=== PATIENT | male | born 1980 | race Caucasian/White ===

== ENCOUNTER 2017-01-14 03:18 | Emergency (ER) | payer MEDICAID, OTHER ==
[2017-01-14 04:04] LABS: Hematocrit 44 % (42-52); Mean Corpuscular HGB Conc 34 g/dl (31-36); Mean Corpuscular Hemoglobin 31 pg (27-31); Mean Corpuscular Volume 90 fL (80-94); Mean Platelet Volume 7 um3 (7.4-10.4); Red Blood Count 4.84 10^6/ul (4.0-5.4); Red Cell Distribution Width 14 % (10.5-15); White Blood Count 7.4 10^3/ul (3.5-10.8)
[2017-01-14 04:17] LABS: ALT 28 U/L (7-52); AST 68 U/L (13-39); Albumin 4.4 g/dL (3.2-5.2); Alkaline Phosphatase 50 U/L (34-104); Anion Gap 7 mmol/L (2-11); BUN/Creatinine Ratio 6.3 (8-20); Blood Urea Nitrogen 5 mg/dL (6-24); CO2 Carbon Dioxide 30 mmol/L (22-32); Calcium 8.7 mg/dL (8.6-10.3); Chloride 100 mmol/L (101-111); EGFR African American 141.5 (>60); Globulin 2.7 g/dL (2-4); Glucose 90 mg/dL (70-100); Potassium 3.7 mmol/L (3.5-5.0); Sodium 137 mmol/L (133-145); Total Protein 7.1 g/dL (6.4-8.9)
[2017-01-14 04:26] LABS: Urine Bacteria Absent (Absent); Urine Bilirubin Negative (Negative); Urine Glucose Negative (Negative); Urine Nitrite Negative (Negative)
[2017-01-14 04:28] LABS: Benzodiazepine Urine Screen None Detected (None Detect)
[2017-01-14] MEDS ORDERED: LORazepam INJ* 2 MG/ML 1 ML VIAL ONE (04:56)
[2017-01-14 05:00] LABS: Acetaminophen < 15 mcg/mL; Alcohol 389 mg/dL (<10); Salicylate < 2.50 mg/dL (<30)
[2017-01-14] MEDS ORDERED: LORazepam INJ* 2 MG/ML 1 ML VIAL IM ONE (05:07)
[2017-01-14 05:11] LABS: TSH (Thyroid Stimulating Horm) 0.58 mcIU/mL (0.34-5.60)
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
[2017-01-14 10:47] VITALS: BP 119/72
== END 2017-01-14 13:59 | disposition home or self-care (01) ==
LOC: ED 03:18
DX: F10.129 Alcohol abuse with intoxication, unspecified (principal); Y90.8 Blood alcohol level of 240 mg/100 ml or more; F17.210 Nicotine dependence, cigarettes, uncomplicated
CPT/HCPCS: 36415; 80053; 80307; 80320; 80329; 81003; 81015; 84443; 85025; 96372; 96374; 99284; G0480; J2060

== ENCOUNTER 2017-01-24 06:44 | Emergency (ER) | payer OTHER ==
[2017-01-24 07:55] LABS: Hematocrit 42 % (42-52); Hemoglobin 14.6 g/dl (14.0-18.0); Mean Corpuscular HGB Conc 35 g/dl (31-36); Mean Corpuscular Hemoglobin 32 pg (27-31); Mean Corpuscular Volume 91 fL (80-94); Mean Platelet Volume 7 um3 (7.4-10.4); Red Blood Count 4.63 10^6/ul (4.0-5.4); Red Cell Distribution Width 15 % (10.5-15); White Blood Count 6.1 10^3/ul (3.5-10.8)
[2017-01-24 08:09] LABS: ALT 102 U/L (7-52); AST 62 U/L (13-39); Albumin 4.6 g/dL (3.2-5.2); Alkaline Phosphatase 53 U/L (34-104); Anion Gap 10 mmol/L (2-11); Blood Urea Nitrogen 5 mg/dL (6-24); CO2 Carbon Dioxide 29 mmol/L (22-32); Calcium 9.2 mg/dL (8.6-10.3); Chloride 101 mmol/L (101-111); EGFR African American 162.4 (>60); EGFR Non-African American 126.3 (>60); Globulin 2.9 g/dL (2-4); Glucose 105 mg/dL (70-100); Potassium 3.9 mmol/L (3.5-5.0); Sodium 140 mmol/L (133-145); Total Protein 7.5 g/dL (6.4-8.9)
[2017-01-24 08:41] LABS: Acetaminophen < 15 mcg/mL; Alcohol 340 mg/dL (<10); Salicylate < 2.50 mg/dL (<30)
[2017-01-24 09:04] VITALS: BP 137/81
--- NOTE | 2017-01-24 10:59 | ED ---
Elan Aparicio Alok, scribed for Omi Garibay MD on 01/24/17 at 0827 . Substance Abuse/Use - HPI Summary HPI Summary: 36 y/o male presents to the ED for EtOH use and nausea. Pt denies any injury or trauma and has a history of EtOH related seizures. Pt is currently seeking detoxification for EtOH abuse and last checked out of [facility] for EtOH abuse 10 days ago, after which his EtOH use has increased. - History Of Current Complaint Chief Complaint: EDDetoxRequest Stated Complaint: ALCOHOL CONSUMPTION Time Seen by Provider: 01/24/17 07:33 Hx Obtained From: Patient, Family/Mincing Machine Operator Onset/Duration of Drug/ETOH Abuse: Increased Since: - 10 days ago Severity Initially: Moderate Severity Currently: Moderate Aggravating Factor(s): Nothing Alleviating Factor(s): Nothing Associated Signs And Symptoms: Nausea - Allergies/Home Medications Allergies/Adverse Reactions: Allergies Allergy/AdvReac Type Severity Reaction Status Date / Time No Known Allergies Allergy Verified 01/14/17 03:26 PMH/Surg Hx/FS Hx/Imm Hx Endocrine/Hematology History: Denies: Hx Anticoagulant Therapy, Hx Diabetes - general medical health ok. hx addiction. recently d/c'd from [facility], Hx Thyroid Disease, Other Endocrine/Hematological Disorders Cardiovascular History: Denies: Hx Hypertension, Hx Pacemaker/ICD, Other Cardiovascular Problems/ Disorders Respiratory History: Denies: Hx Asthma, Hx Chronic Obstructive Pulmonary Disease (COPD), Other Respiratory Problems/Disorders GI History: Denies: Hx Ulcer, Other GI Disorders History: Denies: Hx Renal Disease, Other Problems/Disorders Musculoskeletal History: Denies: Other Musculoskeletal History Sensory History: Denies: Other Sensory Impairments Opthamlomology History: Denies: Other Sensory Impairments Neurological History: Reports: Hx Seizures - r/t alcohol withdrawl Denies: Hx Dementia, Other Neuro Impairments/Disorders Psychiatric History: Reports: Hx Anxiety, Hx Depression, Hx Community Mental Health Tx, Hx Substance Abuse, Other Psychiatric Issues/Disorders - substance abuse Denies: Hx Eating Disorder, Hx of Violent Episodes Against Others - Surgical History Surgery Procedure, Year, and Place: [place] Teeth Extraction. Moles Removed - Immunization History Date of Tetanus Vaccine: UNK Date of Influenza Vaccine: NONE Infectious Disease History: No Infectious Disease History: Denies: Hx Clostridium Difficile, Hx Hepatitis, Hx Human Immunodeficiency Virus (HIV), Hx of Known/Suspected MRSA, Hx Shingles, Hx Tuberculosis, Hx Known/ Suspected VRE, Hx Known/Suspected VRSA, History Other Infectious Disease, Traveled Outside the [place] in Last 30 Days - Family History Known Family History: Positive: Other - EtOH abuse and depression per EMR. - Social History Occupation: Unemployed Alcohol Use: None Alcohol Amount: 10 day binge Hx Substance Use: No Substance Use Type: Reports: Other Hx Tobacco Use: Yes Smoking Status (MU): Current Every Day Smoker Type: Cigarettes Amount Used/How Often: 1/2 PPD Have You Smoked in the Last Year: Yes Review of Systems Negative: Fever Positive: Nausea All Other Systems Reviewed And Are Negative: Yes Physical Exam Triage Information Reviewed: Yes Vital Signs On Initial Exam: Initial Vitals Temp Pulse Resp BP Pulse Ox 98.7 F 128 18 152/97 100 01/24/17 06:52 01/24/17 06:52 01/24/17 06:52 01/24/17 06:52 01/24/17 06:52 Vital Signs Reviewed: Yes Appearance: Positive: Well-Appearing - EtOH smell, inebriated, No Pain Distress Skin: Positive: Warm, Skin Color Reflects Adequate Perfusion, Dry Head/Face: Positive: Normal Head/Face Inspection Eyes: Positive: Normal ENT: Positive: Normal ENT inspection Neck: Positive: Supple, Nontender Respiratory/Lung Sounds: Positive: Clear to Auscultation, Breath Sounds Present Abdomen Description: Positive: Nontender, Soft Bowel Sounds: Positive: Present Musculoskeletal: Positive: Normal, Strength/ROM Intact Neurological: Positive: Normal, Sensory/Motor Intact, Alert, Oriented to Person Place, Time Psychiatric: Positive: Normal, Affect/Mood Appropriate Diagnostics - Vital Signs Vital Signs Temp Pulse Resp BP Pulse Ox 01/24/17 06:52 98.7 F 128 18 152/97 100 - Laboratory Lab Results: Lab Results 01/24/17 01/24/17 Range/Units 07:41 07:41 WBC 6.1 (3.5-10.8) 10^3/ul RBC 4.63 (4.0-5.4) 10^6/ul Hgb 14.6 (14.0-18.0) g/dl Hct 42 (42-52) % MCV 91 (80-94) fL MCH 32 H (27-31) pg MCHC 35 (31-36) g/dl RDW 15 (10.5-15) % Plt Count 276 (150-450) 10^3/ul MPV 7 L (7.4-10.4) um3 Neut % (Auto) 44.8 (38-83) % Lymph % (Auto) 38.2 (25-47) % [place] % (Auto) 14.7 H (1-9) % Eos % (Auto) 1.2 (0-6) % Baso % (Auto) 1.1 (0-2) % Absolute Neuts (auto) 2.7 (1.5-7.7) 10^3/ul Absolute Lymphs (auto) 2.3 (1.0-4.8) 10^3/ul Absolute Monos (auto) 0.9 H (0-0.8) 10^3/ul Absolute Eos (auto) 0.1 (0-0.6) 10^3/ul Absolute Basos (auto) 0.1 (0-0.2) 10^3/ul Absolute Nucleated RBC 0 10^3/ul Nucleated RBC % 0 Sodium 140 (133-145) mmol/L Potassium 3.9 (3.5-5.0) mmol/L Chloride 101 (101-111) mmol/L Carbon Dioxide 29 (22-32) mmol/L Anion Gap 10 (2-11) mmol/L BUN 5 L (6-24) mg/dL Creatinine 0.71 (0.67-1.17) mg/dL Est GFR ( Amer) 162.4 (>60) Est GFR (Non-Af Amer) 126.3 (>60) BUN/Creatinine Ratio 7.0 L (8-20) Glucose 105 H (70-100) mg/dL Calcium 9.2 (8.6-10.3) mg/dL Total Bilirubin 0.30 (0.2-1.0) mg/dL AST 62 H (13-39) U/L ALT 102 H (7-52) U/L Alkaline Phosphatase 53 (34-104) U/L Total Protein 7.5 (6.4-8.9) g/dL Albumin 4.6 (3.2-5.2) g/dL Globulin 2.9 (2-4) g/dL Albumin/Globulin Ratio 1.6 (1-3) TSH Pending Salicylates Pending Acetaminophen Pending Serum Alcohol Pending Result Diagrams: 01/24/17 07:41 01/24/17 07:41 Lab Statement: Any lab studies that have been ordered have been reviewed, and results considered in the medical decision making process. Course/Dx - Course Assessment/Plan: DISCUSSED RESULTS WITH PATIENT. PATIENT DENIES SI/HI, DOES NOT WANT A MHE. DOES NOT WANT ALCOHOL DETOX. DISCHARGE HOME STABLE WITH FATHER. - Diagnoses Provider Diagnoses: Alcohol intoxication, Alcoholism Discharge - Discharge Plan Condition: Stable Disposition: HOME Patient Education Materials: Alcohol Intoxication (ED), Alcohol Dependence (ED) Referrals: [facility] [Outside] [facility] [Outside] [facility] [Outside] Bala Grady III DERRICK BOAT LEVERMAN [Primary Care Provider] - Additional Instructions: FOLLOW UP WITH YOUR DOCTOR. RETURN TO THE EMERGENCY DEPARTMENT FOR ANY WORSENING OF YOUR CONDITION OR QUESTIONS OR CONCERNS. The documentation as recorded by the Elan covington Alok accurately reflects the service I personally performed and the decisions made by me, Omi Garibay MD.
== END 2017-01-24 10:50 | disposition home or self-care (01) ==
LOC: ED 06:44
DX: F10.129 Alcohol abuse with intoxication, unspecified (principal); F10.20 Alcohol dependence, uncomplicated; F17.210 Nicotine dependence, cigarettes, uncomplicated; R11.0 Nausea
CPT/HCPCS: 36415; 80053; 80320; 80329; 84443; 85025; 99282; G0480

== ENCOUNTER 2017-01-24 22:00 | Emergency (ER) | payer OTHER ==
[2017-01-25 01:00] LABS: Hematocrit 41 % (42-52); Hemoglobin 14.1 g/dl (14.0-18.0); Mean Corpuscular HGB Conc 35 g/dl (31-36); Mean Corpuscular Hemoglobin 31 pg (27-31); Mean Corpuscular Volume 91 fL (80-94); Mean Platelet Volume 7 um3 (7.4-10.4); Red Blood Count 4.49 10^6/ul (4.0-5.4); Red Cell Distribution Width 14 % (10.5-15); White Blood Count 10.9 10^3/ul (3.5-10.8)
[2017-01-25 01:16] LABS: ALT 89 U/L (7-52); AST 54 U/L (13-39); Albumin 4.4 g/dL (3.2-5.2); Alkaline Phosphatase 50 U/L (34-104); Anion Gap 8 mmol/L (2-11); BUN/Creatinine Ratio 11.1 (8-20); Blood Urea Nitrogen 8 mg/dL (6-24); CO2 Carbon Dioxide 31 mmol/L (22-32); Calcium 9.4 mg/dL (8.6-10.3); Chloride 99 mmol/L (101-111); Creatine Kinase 339 U/L (10-223); EGFR African American 159.8 (>60); EGFR Non-African American 124.2 (>60); Globulin 2.8 g/dL (2-4); Glucose 101 mg/dL (70-100); Potassium 3.9 mmol/L (3.5-5.0); Sodium 138 mmol/L (133-145); Total Protein 7.2 g/dL (6.4-8.9)
[2017-01-25 01:19] LABS: Acetaminophen < 15 mcg/mL; Alcohol 266 mg/dL (<10); Salicylate < 2.50 mg/dL (<30)
[2017-01-25 04:12] LABS: Urine Bacteria Absent (Absent); Urine Bilirubin Negative (Negative); Urine Glucose Negative (Negative); Urine Nitrite Negative (Negative)
[2017-01-25 04:21] LABS: Benzodiazepine Urine Screen Presumptive Positive (None Detect)
--- NOTE | 2017-01-25 06:28 | ED ---
miller Aparicio Timothy, scribed for Brendan Tsai MD on 01/24/17 at 2233 . Substance Abuse/Use - HPI Summary HPI Summary: Mark Butcher is a 36 yo male presenting [place] [facility] after ingesting cologne. Pt states he drank a 12 pack of beer beginning at 1100 this morning, then didn't feel good and so drank 10 oz of cologne. He states he drinks everyday, and has been drinking for the past 5 days. He has experienced alcohol withdrawal. Pt states that he does not smoke tobacco, although his chart indicates he does. He is not in any current pain. He denies SI. His MHx includes seizure secondary to EtOH withdrawal, depression, anxiety, substance abuse, and tobacco use. - History Of Current Complaint Chief Complaint: EDGeneral Stated Complaint: INGESTED COLOGNE Time Seen by Provider: 01/24/17 22:30 Hx Obtained From: Patient Onset/Duration of Drug/ETOH Abuse: Hours Ingestion History: Type/Name Of Drug - EtOH, cologne, Amount Ingested - 12 pack/ 10 oz Overdose Characteristics: Oral Severity Initially: Moderate Severity Currently: Moderate - Allergies/Home Medications Allergies/Adverse Reactions: Allergies Allergy/AdvReac Type Severity Reaction Status Date / Time No Known Allergies Allergy Verified 01/14/17 03:26 PMH/Surg Hx/FS Hx/Imm Hx Endocrine/Hematology History: Denies: Hx Anticoagulant Therapy, Hx Diabetes - general medical health ok. hx addiction. [place] [facility], Hx Thyroid Disease, Other Endocrine/Hematological Disorders Cardiovascular History: Denies: Hx Hypertension, Hx Pacemaker/ICD, Other Cardiovascular Problems/ Disorders Respiratory History: Denies: Hx Asthma, Hx Chronic Obstructive Pulmonary Disease (COPD), Other Respiratory Problems/Disorders GI History: Denies: Hx Ulcer, Other GI Disorders History: Denies: Hx Renal Disease, Other Problems/Disorders Musculoskeletal History: Denies: Other Musculoskeletal History Sensory History: Denies: Other Sensory Impairments Opthamlomology History: Denies: Other Sensory Impairments Neurological History: Reports: Hx Seizures - r/t alcohol withdrawl Denies: Hx Dementia, Other Neuro Impairments/Disorders Psychiatric History: Reports: Hx Anxiety, Hx Depression, Hx Community Mental Health Tx, Hx Substance Abuse, Other Psychiatric Issues/Disorders - substance abuse Denies: Hx Eating Disorder, Hx of Violent Episodes Against Others - Surgical History Surgery Procedure, Year, and Place: [place] Teeth Extraction. Moles Removed - Immunization History Date of Tetanus Vaccine: UNK Date of Influenza Vaccine: NONE Infectious Disease History: No Infectious Disease History: Denies: Hx Clostridium Difficile, Hx Hepatitis, Hx Human Immunodeficiency Virus (HIV), Hx of Known/Suspected MRSA, Hx Shingles, Hx Tuberculosis, Hx Known/ Suspected VRE, Hx Known/Suspected VRSA, History Other Infectious Disease, Traveled Outside the [place] in Last 30 Days - Family History Known Family History: Positive: None, Other - EtOH abuse and depression per EMR. - Social History Alcohol Use: None Alcohol Amount: 10 day binge Hx Substance Use: No Substance Use Type: Reports: Other Hx Tobacco Use: Yes Smoking Status (MU): Current Every Day Smoker Type: Cigarettes Amount Used/How Often: 1/2 PPD Have You Smoked in the Last Year: Yes Review of Systems Constitutional: Negative Eyes: Negative ENT: Negative Cardiovascular: Negative Respiratory: Negative Gastrointestinal: Negative Genitourinary: Negative Musculoskeletal: Negative Skin: Negative Neurological: Negative Psychological: Other - "not feeling good" All Other Systems Reviewed And Are Negative: Yes Physical Exam - Summary Physical Exam Summary: The patient is well-nourished in no acute distress and in no acute pain. The skin is warm and dry and skin color reflects adequate perfusion. His skin has good turgor. Pt appears intoxicated. Pt does not exhibit cuts on his arms bilaterally. HEENT: The head is normocephalic and atraumatic. The pupils are equal and reactive. The conjunctivae are clear and without drainage. Nares are patent and without drainage. Mouth reveals moist mucous membranes and the throat is without erythema and exudate. The external ears are intact. Neck is supple with full range of motion and non-tender. There are no carotid bruits. There is no neck vein distension. Respiratory: Chest is non-tender. Lungs are clear to auscultation and breath sounds are symmetrical and equal. Cardiovascular: Hear is regular rate and rhythm. There is no murmur or rub auscultated. There is no peripheral edema and pulses are symmetrical and equal. Abdomen: The abdomen is soft and non-tender. There are normal bowel sounds heard in all four quadrants and there is no organomegaly palpated. Musculoskeletal: There is no back pain noted. Extremities are non-tender with full range of motion. There is good capillary refill. There is no peripheral edema or calf tenderness elicited. Neurological: Patient is alert and oriented to person, place and time. The patient has symmetrical motor strength in all four extremities. Cranial nerves are grossly intact. Deep tendon reflexes are symmetrical and equal in all four extremities. Psychiatric: The patient has an appropriate affect and does not exhibit any anxiety or depression. Triage Information Reviewed: Yes Vital Signs On Initial Exam: Initial Vitals Temp Pulse Resp BP Pulse Ox 98.7 F 118 18 128/78 98 01/24/17 22:09 01/24/17 22:09 01/24/17 22:09 01/24/17 22:09 01/24/17 22:09 Vital Signs Reviewed: Yes - [place] Coma Scale Coma Scale Total: 15 Diagnostics - Vital Signs Vital Signs Temp Pulse Resp BP Pulse Ox 01/24/17 22:09 98.7 F 118 18 128/78 98 - Laboratory Lab Results: Lab Results 01/25/17 01/25/17 01/25/17 Range/Units 00:30 00:30 00:30 WBC 10.9 H (3.5-10.8) 10^3/ul RBC 4.49 (4.0-5.4) 10^6/ul Hgb 14.1 (14.0-18.0) g/dl Hct 41 L (42-52) % MCV 91 (80-94) fL MCH 31 (27-31) pg MCHC 35 (31-36) g/dl RDW 14 (10.5-15) % Plt Count 269 (150-450) 10^3/ul MPV 7 L (7.4-10.4) um3 Neut % (Auto) 54.4 (38-83) % Lymph % (Auto) 31.2 (25-47) % [place] % (Auto) 12.8 H (1-9) % Eos % (Auto) 0.8 (0-6) % Baso % (Auto) 0.8 (0-2) % Absolute Neuts (auto) 5.9 (1.5-7.7) 10^3/ul Absolute Lymphs (auto) 3.4 (1.0-4.8) 10^3/ul Absolute Monos (auto) 1.4 H (0-0.8) 10^3/ul Absolute Eos (auto) 0.1 (0-0.6) 10^3/ul Absolute Basos (auto) 0.1 (0-0.2) 10^3/ul Absolute Nucleated RBC 0.01 10^3/ul Nucleated RBC % 0.1 Sodium 138 (133-145) mmol/L Potassium 3.9 (3.5-5.0) mmol/L Chloride 99 L (101-111) mmol/L Carbon Dioxide 31 (22-32) mmol/L Anion Gap 8 (2-11) mmol/L BUN 8 (6-24) mg/dL Creatinine 0.72 (0.67-1.17) mg/dL Est GFR ( Amer) 159.8 (>60) Est GFR (Non-Af Amer) 124.2 (>60) BUN/Creatinine Ratio 11.1 (8-20) Glucose 101 H (70-100) mg/dL Lactic Acid 1.9 (0.5-2.0) mmol/L Calcium 9.4 (8.6-10.3) mg/dL Total Bilirubin 0.30 (0.2-1.0) mg/dL AST 54 H (13-39) U/L ALT 89 H (7-52) U/L Alkaline Phosphatase 50 (34-104) U/L Total Creatine Kinase 339 H (10-223) U/L Total Protein 7.2 (6.4-8.9) g/dL Albumin 4.4 (3.2-5.2) g/dL Globulin 2.8 (2-4) g/dL Albumin/Globulin Ratio 1.6 (1-3) Urine Color Urine Appearance Urine pH (5-9) Ur Specific [place] (1.010-1.030) Urine Protein (Negative) Urine Ketones (Negative) Urine Blood (Negative) Urine Nitrate (Negative) Urine Bilirubin (Negative) Urine Urobilinogen (Negative) Ur Leukocyte Esterase (Negative) Urine WBC (Auto) (Absent) Urine RBC (Auto) (Absent) Urine Bacteria (Absent) Urine Glucose (Negative) Salicylates < 2.50 (<30) mg/dL Urine Opiates Screen (None Detect) Acetaminophen < 15 mcg/mL Ur Barbiturates Screen (None Detect) Ur Phencyclidine Scrn (None Detect) Ur Amphetamines Screen (None Detect) U Benzodiazepines Scrn (None Detect) Urine Cocaine Screen (None Detect) U Cannabinoids Screen (None Detect) Serum Alcohol 266 H (<10) mg/dL 01/25/17 01/25/17 Range/Units 03:54 03:54 WBC (3.5-10.8) 10^3/ul RBC (4.0-5.4) 10^6/ul Hgb (14.0-18.0) g/dl Hct (42-52) % MCV (80-94) fL MCH (27-31) pg MCHC (31-36) g/dl RDW (10.5-15) % Plt Count (150-450) 10^3/ul MPV (7.4-10.4) um3 Neut % (Auto) (38-83) % Lymph % (Auto) (25-47) % [place] % (Auto) (1-9) % Eos % (Auto) (0-6) % Baso % (Auto) (0-2) % Absolute Neuts (auto) (1.5-7.7) 10^3/ul Absolute Lymphs (auto) (1.0-4.8) 10^3/ul Absolute Monos (auto) (0-0.8) 10^3/ul Absolute Eos (auto) (0-0.6) 10^3/ul Absolute Basos (auto) (0-0.2) 10^3/ul Absolute Nucleated RBC 10^3/ul Nucleated RBC % Sodium (133-145) mmol/L Potassium (3.5-5.0) mmol/L Chloride (101-111) mmol/L Carbon Dioxide (22-32) mmol/L Anion Gap (2-11) mmol/L BUN (6-24) mg/dL Creatinine (0.67-1.17) mg/dL Est GFR ( Amer) (>60) Est GFR (Non-Af Amer) (>60) BUN/Creatinine Ratio (8-20) Glucose (70-100) mg/dL Lactic Acid (0.5-2.0) mmol/L Calcium (8.6-10.3) mg/dL Total Bilirubin (0.2-1.0) mg/dL AST (13-39) U/L ALT (7-52) U/L Alkaline Phosphatase (34-104) U/L Total Creatine Kinase (10-223) U/L Total Protein (6.4-8.9) g/dL Albumin (3.2-5.2) g/dL Globulin (2-4) g/dL Albumin/Globulin Ratio (1-3) Urine Color Yellow Urine Appearance Clear Urine pH 6.0 (5-9) Ur Specific [place] 1.006 L (1.010-1.030) Urine Protein Negative (Negative) Urine Ketones Negative (Negative) Urine Blood 2+ H (Negative) Urine Nitrate Negative (Negative) Urine Bilirubin Negative (Negative) Urine Urobilinogen Negative (Negative) Ur Leukocyte Esterase Negative (Negative) Urine WBC (Auto) Trace(0-5/hpf) (Absent) Urine RBC (Auto) 2+(6-10/hpf) H (Absent) Urine Bacteria Absent (Absent) Urine Glucose Negative (Negative) Salicylates (<30) mg/dL Urine Opiates Screen None detected (None Detect) Acetaminophen mcg/mL Ur Barbiturates Screen None detected (None Detect) Ur Phencyclidine Scrn None detected (None Detect) Ur Amphetamines Screen None detected (None Detect) U Benzodiazepines Scrn Presumptive positive H (None Detect) Urine Cocaine Screen None detected (None Detect) U Cannabinoids Screen None detected (None Detect) Serum Alcohol (<10) mg/dL Result Diagrams: 01/25/17 00:30 01/25/17 00:30 Lab Statement: Any lab studies that have been ordered have been reviewed, and results considered in the medical decision making process. Course/Dx - Course Assessment/Plan: Mark Butcher is a 36 [address] to [facility] with EtOH intoxication and consumption of 10 oz of cologne. He is medically clear for a mental health unit evaluation at 0511. He is signed out to Dr. Sanchez at 0700. - Diagnoses Differential Diagnosis/HQI/PQRI: Positive: Alcohol Abuse, Metabolic Disorder Provider Diagnoses: Alcohol abuse, Depression Discharge - Discharge Plan Condition: Stable Disposition: OTHER Discharge Disposition Comment: Sign out to Dr. Sanchez [place] [facility]errals: Bala Grady III, RESPIRATORY CARE INSTRUCTOR [Primary Care Provider] - The documentation as recorded by the miller ocvington Timothy accurately reflects the service I personally performed and the decisions made by , Brendan Tsai MD.
--- NOTE | 2017-01-25 07:59 | ED ---
Progress - Progress Note Progress Note: 0715 Pt received in sign out - awaiting completion of mental health exam. No current needs - Consult/PCP Time Called: 05:20 Course/Dx - Diagnoses Provider Diagnoses: Alcohol abuse, Depression
[2017-01-25] MEDS ORDERED: Ondansetron ODT TAB* 4 MG PO ONE (08:41)
[2017-01-25] MEDS ORDERED: Acetaminophen TAB* 325 MG PO ONE (08:41)
[2017-01-25] MEDS ORDERED: LORazepam TAB(*) 1 MG PO ONE (09:02)
[2017-01-25 10:45] VITALS: BP 150/87
== END 2017-01-25 10:43 | disposition home or self-care (01) ==
LOC: ED 22:00
DX: F10.129 Alcohol abuse with intoxication, unspecified (principal); Y90.8 Blood alcohol level of 240 mg/100 ml or more; F10.10 Alcohol abuse, uncomplicated; F32.9 Major depressive disorder, single episode, unspecified; F17.210 Nicotine dependence, cigarettes, uncomplicated
CPT/HCPCS: 36415; 80053; 80307; 80320; 80329; 81003; 81015; 82550; 83605; 85025; 99282; A9270-GY; G0480

== ENCOUNTER 2017-01-29 01:41 | Emergency (ER) | payer OTHER ==
[2017-01-29 01:49] VITALS: BP 164/90
--- NOTE | 2017-01-29 05:32 | ED ---
Alcon Aparicio Janilya, scribed for Omi Garibay MD on 01/29/17 at 0211 . Substance Abuse/Use - HPI Summary HPI Summary: A 36 y/o male came in [place] [facility] [place] w/ a gradual onset of EtOH intoxication today. In addition, pt thinks he has broken his nose. He reports falling earlier today. - History Of Current Complaint Chief Complaint: EDSubstanceAbuse Stated Complaint: ALCOHOL Time Seen by Provider: 01/29/17 02:03 Hx Obtained From: Patient Ingestion History: Type/Name Of Drug - EtOH, Amount Ingested - unknown Overdose Characteristics: Oral Severity Initially: Moderate Severity Currently: Moderate Aggravating Factor(s): Nothing Alleviating Factor(s): Nothing - Allergies/Home Medications Allergies/Adverse Reactions: Allergies Allergy/AdvReac Type Severity Reaction Status Date / Time Peanut-containing Drug Allergy Severe Anaphylatic Verified 01/29/17 01:49 Products Shock PMH/Surg Hx/FS Hx/Imm Hx Previously Healthy: Yes Endocrine/Hematology History: Denies: Hx Anticoagulant Therapy, Hx Diabetes - general medical health ok. hx addiction. recently d/c'd from [facility] [place] [facility], Hx Thyroid Disease, Other Endocrine/Hematological Disorders Cardiovascular History: Denies: Hx Hypertension, Hx Pacemaker/ICD, Other Cardiovascular Problems/ Disorders Respiratory History: Denies: Hx Asthma, Hx Chronic Obstructive Pulmonary Disease (COPD), Other Respiratory Problems/Disorders GI History: Denies: Hx Ulcer, Other GI Disorders History: Denies: Hx Renal Disease, Other Problems/Disorders Musculoskeletal History: Denies: Other Musculoskeletal History Sensory History: Denies: Other Sensory Impairments Opthamlomology History: Denies: Other Sensory Impairments Neurological History: Reports: Hx Seizures - r/t alcohol withdrawl Denies: Hx Dementia, Other Neuro Impairments/Disorders Psychiatric History: Reports: Hx Anxiety, Hx Depression, Hx Community Mental Health Tx, Hx Substance Abuse, Other Psychiatric Issues/Disorders - substance abuse Denies: Hx Eating Disorder, Hx of Violent Episodes Against Others - Surgical History Surgery Procedure, Year, and Place: [place] Teeth Extraction. Moles Removed - Immunization History Date of Tetanus Vaccine: UNK Date of Influenza Vaccine: NONE Infectious Disease History: No Infectious Disease History: Denies: Hx Clostridium Difficile, Hx Hepatitis, Hx Human Immunodeficiency Virus (HIV), Hx of Known/Suspected MRSA, Hx Shingles, Hx Tuberculosis, Hx Known/ Suspected VRE, Hx Known/Suspected VRSA, History Other Infectious Disease, Traveled Outside the [place] in Last 30 Days - Family History Known Family History: Positive: None, Other - EtOH abuse and depression per EMR. - Social History Alcohol Use: None Alcohol Amount: 10 day binge Hx Substance Use: No Substance Use Type: Reports: Other Hx Tobacco Use: Yes Smoking Status (MU): Current Every Day Smoker Type: Cigarettes Amount Used/How Often: 1/2 PPD Have You Smoked in the Last Year: Yes Review of Systems Positive: Other - EtOH intoxication. Negative: Fever Positive: Other - nose tenderness All Other Systems Reviewed And Are Negative: Yes Physical Exam Triage Information Reviewed: Yes Vital Signs On Initial Exam: Initial Vitals Temp Pulse Resp BP Pulse Ox 98.2 F 124 16 164/90 100 01/29/17 01:45 01/29/17 01:45 01/29/17 01:45 01/29/17 01:45 01/29/17 01:45 Vital Signs Reviewed: Yes Appearance: Positive: Well-Appearing, No Pain Distress Skin: Positive: Warm, Skin Color Reflects Adequate Perfusion, Dry Head/Face: Positive: Normal Head/Face Inspection Eyes: Positive: EOMI, LISSETTE ENT: Positive: Normal ENT inspection Neck: Positive: Supple, Nontender Respiratory/Lung Sounds: Positive: Clear to Auscultation, Breath Sounds Present Cardiovascular: Positive: RRR Abdomen Description: Positive: Nontender, Soft Bowel Sounds: Positive: Present Musculoskeletal: Positive: Strength/ROM Intact, Other - Tenderness of nose. No active bleeding. Neurological: Positive: Normal, Sensory/Motor Intact, Alert, Oriented to Person Place, Time Psychiatric: Positive: Other - Stuporous Diagnostics - Vital Signs Vital Signs Temp Pulse Resp BP Pulse Ox 01/29/17 01:45 98.2 F 124 16 164/90 100 - Laboratory Lab Statement: Any lab studies that have been ordered have been reviewed, and results considered in the medical decision making process. - CT brain CT Interpretation: No Acute Changes - No acute intracranial injury seen. Trace old left frontal subdural hygroma suggesting old injury. cervical spine CT Interpretation: No Acute Changes - No acute fracture seen. If there are focal radicular findings, MRI would be recommended. CT Interpretation Completed By: Radiologist Course/Dx - Course Assessment/Plan: Pt is a 36 y/o male who is here for EtOH intoxication. In addition, pt states that he thinks he has broken his nose due to a fall earlier today. CT of brain, cervical spine, maxillofacial are in orders. Pt agrees with this plan. Pt left AMA at 0330. - Diagnoses Provider Diagnoses: Facial injury, Alcohol intoxication, Left against medical advice Discharge - Discharge Plan Condition: Stable Disposition: AGAINST MEDICAL ADVICE Referrals: Bala Grady III, QUALITY CONTROL ASSOCIATE [Primary Care Provider] - The documentation as recorded by the Alcon covington Janilya accurately reflects the service I personally performed and the decisions made by me, Omi Garibay MD.
--- NOTE | 2017-01-29 10:50 | RAD ---
INDICATION: Alcohol intoxication. Fall. COMPARISON: None. TECHNIQUE: Multidetector CT images foramen magnum to lung apices without contrast. Multiplanar reformation. REPORT: Negative for vertebral body or posterior element fracture at any level. Negative for facet subluxation. Negative for paravertebral hematoma. Degenerative spondylosis and facet joint osteoarthritis mild in severity. Disc space narrowing is most prominent at C5-C6 and C6-C7 where it is moderate in severity. No suggestion of significant acquired central canal or foraminal stenosis at any level. Congenitally generous pedicles mitigate against acquired central canal stenosis. Incidental 0.9 cm well-circumscribed water density nodule at the RIGHT thyroid lobe. IMPRESSION: 1. Negative for traumatic cervical spine injury. 2. Nonemergent thyroid ultrasound suggested for most accurate characterization of the noted incidental RIGHT thyroid lobe nodule.
--- NOTE | 2017-01-29 10:58 | RAD ---
INDICATION: Intoxicated. Fell and hurt nose. COMPARISON: None. TECHNIQUE: Multidetector CT base of the skull through mandible without contrast. Multiplanar reformation. REPORT: Artifact from dental amalgam. Minimally depressed bilateral nasal bone fractures and fracture of the LEFT nasal process of the maxilla. Overlying soft tissue swelling without loculated soft tissue hematoma. The orbital and maxillary sinus margins, zygomatic arches, lamina papyracea, base of the maxilla, and pterygoid plates are intact. The mandible is intact. There is partial flattening of the bilateral mandibular condyles reflecting presence of arthropathy. The LEFT mandibular condyle is translated anteriorly extending further anterior than the articular eminence. Less prominent anterior translation of the RIGHT mandibular condyle relative to the mandibular fossa. Clear paranasal sinuses and visualized mastoid air spaces. IMPRESSION: 1. Minimally depressed bilateral nasal bone fractures and fracture of the LEFT nasal process of the maxilla. Overlying soft tissue swelling without loculated soft tissue hematoma. 2. Bilateral temporomandibular joint arthropathy.
--- NOTE | 2017-01-29 11:01 | RAD ---
Indication: Alcohol intoxication. Nasal fractures. Comparison: Maxillofacial CT exam of the same date. Technique: Noncontrast CT vertex of skull through foramen magnum. Report: The sulci, ventricles, and basal cisterns are normal for age. Weber matter white matter differentiation is preserved without evidence for edema. No intra or extra axial hemorrhage is detected. Unremarkable orbital contents. Negative for calvarial or skull base fracture. Negative for scalp hematoma. The visualized paranasal sinuses and mastoid air spaces are clear. IMPRESSION: No evidence for traumatic brain injury or acute intracranial process.
== END 2017-01-29 03:21 | disposition left against medical advice (07) ==
LOC: ED 01:41
DX: S09.93XA Unspecified injury of face, initial encounter (principal); W18.30XA Fall on same level, unspecified, initial encounter; F10.129 Alcohol abuse with intoxication, unspecified
CPT/HCPCS: 70450; 70486; 72125; 99282

== ENCOUNTER 2017-01-29 03:37 | Emergency (ER) | payer OTHER ==
[2017-01-29] MEDS ORDERED: Mouth Piece, Nicotine* 1 EACH CARTRIDGE ONE (03:48)
[2017-01-29] MEDS ORDERED: Nicotine Inhaler* 10 MG AMP ONE (03:48)
[2017-01-29 03:50] VITALS: BP 158/96
[2017-01-29] MEDS ORDERED: Amoxicillin/Clavulanate TAB* 875 MG PO ONE (05:25)
--- NOTE | 2017-01-29 05:25 | ED ---
Alcon Aparicio Janilya, scribed for Omi Garibay MD on 01/29/17 at 0357 . Adult Trauma - HPI Summary HPI Summary: A 36 y/o male came in [place] [facility] [place] w/ a gradual onset of constant nose tenderness starting today. Pt states he fell earlier today. Pt is EtOH intoxicated. Note: Pt was seen by Dr. Garibay for this reason a few hours ago. CT orders were placed and taken. While waiting for the CT results, pt left AMA. After 10- 15 mins, pt has returned. - History of Current Complaint Chief Complaint: EDFacialInjury Stated Complaint: NOSE PAIN Hx Obtained From: Patient Mechanism of Injury: Fall Loss of Consciousness: no loss of consciousness Onset/Duration: Started Hours Ago, Traumatic, Still Present Onset of Pain: Hours Onset Severity: Moderate Current Severity: Moderate Pain Intensity: 10 Pain Scale Used: 0-10 Numeric Aggravating Factor(s): Nothing Alleviating Factor(s): Nothing - Additional Pertinent History Primary Care Physician: [id number] - Allergy/Home Medications Allergies/Adverse Reactions: Allergies Allergy/AdvReac Type Severity Reaction Status Date / Time Peanut-containing Drug Allergy Severe Anaphylatic Verified 01/29/17 01:49 Products Shock PMH/Surg Hx/FS Hx/Imm Hx Previously Healthy: Yes Endocrine/Hematology History: Denies: Hx Anticoagulant Therapy, Hx Diabetes - general medical health ok. hx addiction. recently d[place]c'd [facility], Hx Thyroid Disease, Other Endocrine/Hematological Disorders Cardiovascular History: Denies: Hx Hypertension, Hx Pacemaker/ICD, Other Cardiovascular Problems/ Disorders Respiratory History: Denies: Hx Asthma, Hx Chronic Obstructive Pulmonary Disease (COPD), Other Respiratory Problems/Disorders GI History: Denies: Hx Ulcer, Other GI Disorders History: Denies: Hx Renal Disease, Other Problems/Disorders Musculoskeletal History: Denies: Other Musculoskeletal History Sensory History: Denies: Other Sensory Impairments Opthamlomology History: Denies: Other Sensory Impairments Neurological History: Reports: Hx Seizures - r/t alcohol withdrawl Denies: Hx Dementia, Other Neuro Impairments/Disorders Psychiatric History: Reports: Hx Anxiety, Hx Depression, Hx Community Mental Health Tx, Hx Substance Abuse, Other Psychiatric Issues/Disorders - substance abuse Denies: Hx Eating Disorder, Hx of Violent Episodes Against Others - Surgical History Surgery Procedure, Year, and Place: [place] Teeth Extraction. Moles Removed - Immunization History Date of Tetanus Vaccine: UNK Date of Influenza Vaccine: NONE Infectious Disease History: No Infectious Disease History: Denies: Hx Clostridium Difficile, Hx Hepatitis, Hx Human Immunodeficiency Virus (HIV), Hx of Known/Suspected MRSA, Hx Shingles, Hx Tuberculosis, Hx Known/ Suspected VRE, Hx Known/Suspected VRSA, History Other Infectious Disease, Traveled Outside the [place] in Last 30 Days - Family History Known Family History: Positive: Other - EtOH abuse and depression per EMR. - Social History Alcohol Use: unknown frequency Alcohol Amount: 10 day binge Hx Substance Use: No Substance Use Type: Reports: Other Substance Use Comment - Amount & Last Used: unknown Hx Tobacco Use: Yes Smoking Status (MU): Current Every Day Smoker Type: Cigarettes Amount Used/How Often: 1/2 PPD Have You Smoked in the Last Year: Yes Review of Systems Positive: Other - nose pain Positive: Other - stuporous All Other Systems Reviewed And Are Negative: Yes Physical Exam Triage Information Reviewed: Yes Vital Signs On Initial Exam: Initial Vitals Temp Pulse Resp BP Pulse Ox 98.2 F 117 17 158/96 98 01/29/17 03:49 01/29/17 03:49 01/29/17 03:49 01/29/17 03:49 01/29/17 03:49 Vital Signs Reviewed: Yes Appearance: Positive: Well-Appearing, No Pain Distress Skin: Positive: Warm, Skin Color Reflects Adequate Perfusion, Dry Head/Face: Positive: Normal Head/Face Inspection Eyes: Positive: EOMI, LISSETTE ENT: Positive: Normal ENT inspection Neck: Positive: Supple, Nontender Respiratory/Lung Sounds: Positive: Clear to Auscultation, Breath Sounds Present Cardiovascular: Positive: RRR Abdomen Description: Positive: Nontender, Soft Bowel Sounds: Positive: Present Musculoskeletal: Positive: Strength/ROM Intact, Other - Nose tenderness Neurological: Positive: Normal, Sensory/Motor Intact, Alert, Oriented to Person Place, Time Psychiatric: Positive: Other - Stuporous Diagnostics - Vital Signs Vital Signs Temp Pulse Resp BP Pulse Ox 01/29/17 03:49 98.2 F 117 17 158/96 98 - Laboratory Lab Statement: Any lab studies that have been ordered have been reviewed, and results considered in the medical decision making process. - CT maxillofacial CT Interpretation: Positive (See Comments) - 1. Bilateral anterior nasal bone fracture and with some mild rightward displacement. 2. Leftward nasal septal deviation with leftward spur and bilateral derick bullosa in the middle turbinates. CT Interpretation Completed By: Radiologist Adult Trauma Course/Dx - Course Assessment/Plan: Pt is a 36 y/o male here for nose pain. Pt states he fell earlier today. Pt is also EtOH intoxicated. He was seen by me a few hours ago, but left AMA before CT results were back. However, pt returned 10-[address] RESULTS WITH PATIENT. RX AUGMENTIN. F/U ENT. DISCHARGE HOME STABLE. - Diagnoses Provider Diagnoses: Nasal fracture, Alcohol intoxication Discharge - Discharge Plan Condition: Stable Disposition: HOME Prescriptions: Amoxicillin/Clavulanate TAB* [Augmentin TAB 875*] 875 mg PO BID #20 tab Patient Education Materials: Nasal Fracture (ED) Additional Instructions: FOLLOW UP WITH ENT FOR YOUR NASAL FRACTURE. TAKE AUGMENTIN (ANTIBIOTIC) DIRECTED UNTIL YOU SEE THE ENT. RETURN TO THE EMERGENCY DEPARTMENT FOR ANY WORSENING OF YOUR CONDITION OR QUESTIONS OR CONCERNS. The documentation as recorded by the Alcon covington Janilya accurately reflects the service I personally performed and the decisions made by me, Omi Garibay MD.
== END 2017-01-29 05:37 | disposition home or self-care (01) ==
LOC: ED 03:37
DX: S02.2XXA Fracture of nasal bones, initial encounter for closed fracture (principal); F10.129 Alcohol abuse with intoxication, unspecified; F17.210 Nicotine dependence, cigarettes, uncomplicated; W19.XXXA Unspecified fall, initial encounter; Y93.9 Activity, unspecified; Y92.9 Unspecified place or not applicable
CPT/HCPCS: 99282; A9270-GY

== ENCOUNTER 2017-01-29 14:54 | Inpatient (IN) | payer OTHER ==
[2017-01-29 15:32] LABS: Hematocrit 40 % (42-52); Hemoglobin 13.4 g/dl (14.0-18.0); Mean Corpuscular HGB Conc 34 g/dl (31-36); Mean Corpuscular Hemoglobin 31 pg (27-31); Mean Corpuscular Volume 92 fL (80-94); Mean Platelet Volume 8 um3 (7.4-10.4); Red Blood Count 4.32 10^6/ul (4.0-5.4); Red Cell Distribution Width 14 % (10.5-15); White Blood Count 12.3 10^3/ul (3.5-10.8)
[2017-01-29 15:47] LABS: ALT 112 U/L (7-52); AST 121 U/L (13-39); Albumin 4.6 g/dL (3.2-5.2); Alkaline Phosphatase 59 U/L (34-104); Anion Gap 13 mmol/L (2-11); BUN/Creatinine Ratio 10.8 (8-20); Blood Urea Nitrogen 8 mg/dL (6-24); CO2 Carbon Dioxide 27 mmol/L (22-32); Calcium 9.2 mg/dL (8.6-10.3); Chloride 95 mmol/L (101-111); EGFR African American 154.8 (>60); EGFR Non-African American 120.4 (>60); Globulin 2.9 g/dL (2-4); Glucose 95 mg/dL (70-100); Potassium 3.6 mmol/L (3.5-5.0); Sodium 135 mmol/L (133-145); Total Protein 7.5 g/dL (6.4-8.9)
[2017-01-29 16:00] LABS: Acetaminophen < 15 mcg/mL; Alcohol 243 mg/dL (<10); Salicylate < 2.50 mg/dL (<30)
[2017-01-29 16:06] LABS: TSH (Thyroid Stimulating Horm) 0.31 mcIU/mL (0.34-5.60)
[2017-01-29 17:43] LABS: Urine Bacteria Absent (Absent); Urine Bilirubin Negative (Negative); Urine Glucose Negative (Negative); Urine Nitrite Negative (Negative)
[2017-01-29 18:11] LABS: Benzodiazepine Urine Screen Presumptive Positive (None Detect)
[2017-01-29] MEDS ORDERED: Diazepam SYRINGE* 5 MG/ML SYRINGE IV ONE (21:47)
[2017-01-29] MEDS: Thiamine IV* 100 MG, Folic Acid IV* 1 MG, Multiple Vitamin IV ADULT* 10 ML in NS 0.9% 1... IV ONE (23:00)
[2017-01-29] MEDS ORDERED: Acetaminophen TAB* 325 MG PO ONE (23:31)
[2017-01-29] MEDS ORDERED: Ondansetron INJ* 2 MG/ML VIAL IV ONE (23:31)
[2017-01-30] MEDS ORDERED: LORazepam INJ* 2 MG/ML 1 ML VIAL IV ONE ×2 (00:09→01:06)
[2017-01-30] MEDS ORDERED: LORazepam INJ* 2 MG/ML 1 ML VIAL ONE (00:11)
[2017-01-30] MEDS ORDERED: Thiamine IV* 100 MG, Folic Acid IV* 1 MG, Multiple Vitamin IV ADULT* 10 ML in NS 0.9% 1... IV ONE (01:06)
[2017-01-30] MEDS: Thiamine IV* 100 MG, Folic Acid IV* 1 MG, Multiple Vitamin IV ADULT* 10 ML in NS 0.9% 1... IV ONE (01:08)
[2017-01-30] MEDS ORDERED: Mouth Piece, Nicotine* 1 EACH CARTRIDGE ONE (02:35)
[2017-01-30] MEDS ORDERED: Nicotine Inhaler* 10 MG AMP ONE (02:38)
[2017-01-30] MEDS: Nicotine Inhaler* 10 MG AMP INH PRN ×2 (02:41→15:54)
[2017-01-30] MEDS ORDERED: Mouth Piece, Nicotine* 1 EACH CARTRIDGE INH ONE (04:00)
--- NOTE | 2017-01-30 06:47 | ED ---
Progress - Progress Note Progress Note: STABLE IN ED. REQUIRED ATIVAN. DISPOSITION PENDING AT SHIFT CHANGE. - Consult/PCP Time Called: 20:15 Course/Dx - Diagnoses Provider Diagnoses: substance abuse mood disorder
[2017-01-30] MEDS ORDERED: LORazepam TAB(*) 1 MG PO ONE (07:48)
[2017-01-30] MEDS ORDERED: Al Hydrox/Mg Hydrox/Simet LIQ* 30 ML UDC PO PRN (12:12)
[2017-01-30] MEDS ORDERED: LORazepam TAB(*) 1 MG PO PRN (12:20)
[2017-01-30] MEDS ORDERED: Thiamine TAB* 100 MG TAB PO SCH (13:00)
[2017-01-30] MEDS: Acetaminophen TAB* 325 MG PO PRN (14:34)
[2017-01-30] MEDS: Citalopram TAB* 40 MG PO SCH (14:34)
[2017-01-30] MEDS: Vitamin THERAPEUTIC TAB PO SCH (14:34)
[2017-01-30] MEDS ORDERED: LORazepam IM* PER WAM PARAMETERS IM SCH (16:00)
[2017-01-30] MEDS: LORazepam TAB(*) WAM SCALE 0-6 MG PO SCH (17:10)
[2017-01-31] MEDS: Thiamine TAB* 100 MG TAB DAILY (@ T+1) PO SCH (07:51)
[2017-01-31] MEDS: Vitamin THERAPEUTIC TAB PO SCH (07:51)
[2017-01-31] MEDS: Folic Acid TAB* 1 MG DAILY PO SCH (07:53)
[2017-01-31] MEDS: Citalopram TAB* 40 MG PO SCH (07:53)
[2017-01-31] MEDS: LORazepam TAB(*) WAM SCALE 0-6 MG PO SCH ×3 (07:54→19:01)
[2017-01-31] MEDS: Acetaminophen TAB* 325 MG PO PRN (07:57)
[2017-01-31] MEDS ORDERED: EPINEPHrine AMP 1 MG/ML IM PRN ×2 (10:51→12:50)
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
[2017-02-01] MEDS: Thiamine TAB* 100 MG TAB DAILY (@ T+1) PO SCH (09:09)
[2017-02-01] MEDS: Folic Acid TAB* 1 MG DAILY PO SCH (09:09)
[2017-02-01] MEDS: Citalopram TAB* 40 MG PO SCH (09:10)
[2017-02-01] MEDS: Vitamin THERAPEUTIC TAB PO SCH (09:10)
[2017-02-01] MEDS: LORazepam TAB(*) WAM SCALE 0-6 MG PO SCH ×2 (10:25→21:07)
[2017-02-01] MEDS: Nicotine Inhaler* 10 MG AMP INH PRN ×3 (11:36→20:19)
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
[2017-02-02] MEDS: Thiamine TAB* 100 MG TAB DAILY (@ T+1) PO SCH (09:36)
[2017-02-02] MEDS: Folic Acid TAB* 1 MG DAILY PO SCH (09:36)
[2017-02-02] MEDS: Vitamin THERAPEUTIC TAB PO SCH (09:36)
[2017-02-02] MEDS: Citalopram TAB* 40 MG PO SCH (09:36)
[2017-02-02] MEDS: Nicotine Inhaler* 10 MG AMP INH PRN (09:38)
--- NOTE | 2017-02-02 11:23 | ED ---
David Aparicio Matthew, scribed for Freddy Landry MD on 01/29/17 at 1514 . Altered Mental Status - HPI Summary HPI Summary: A 36 y/o male presents to the ED with ideations of self harm since a month ago. The patient states that he wants to drink himself to . He tried to hurt himself in the past a couple of years ago. Hx of anxiety. He takes celexa. PMHx essential tremors. The patient drank a 6 pack today and has binged for the past 5 days. He does not use recreational drugs. - History Of Current Complaint Chief Complaint: EDMentalHealth Stated Complaint: MHE Time Seen by Provider: 01/29/17 15:01 Hx Obtained From: Patient Onset/Duration: Still Present Timing: Constant, Lasting Weeks Severity Initially: Moderate Severity Currently: Moderate Aggravating Factor(s): Unknown Associated Signs And Symptoms: Positive: Negative - Allergies/Home Medications Allergies/Adverse Reactions: Allergies Allergy/AdvReac Type Severity Reaction Status Date / Time Peanut-containing Drug Allergy Severe Anaphylatic Verified 01/29/17 14:56 Products Shock Home Medications: Home Medications ALPRAZolam TAB* [Xanax TAB*] 0.5 mg PO TID PRN 01/29/17 [History Confirmed 01/29] Methylphenidate TAB* [Ritalin TAB*] 20 mg PO BID 01/29/17 [History Confirmed ] PMH/Surg Hx/FS Hx/Imm Hx Endocrine/Hematology History: Denies: Hx Anticoagulant Therapy, Hx Diabetes - general medical health ok. hx addiction. recently d/c'd from [facility], Hx Thyroid Disease, Other Endocrine/Hematological Disorders Cardiovascular History: Denies: Hx Hypertension, Hx Pacemaker/ICD, Other Cardiovascular Problems/ Disorders Respiratory History: Denies: Hx Asthma, Hx Chronic Obstructive Pulmonary Disease (COPD), Other Respiratory Problems/Disorders GI History: Denies: Hx Ulcer, Other GI Disorders History: Denies: Hx Renal Disease, Other Problems/Disorders Musculoskeletal History: Denies: Other Musculoskeletal History Sensory History: Denies: Other Sensory Impairments Opthamlomology History: Denies: Other Sensory Impairments Neurological History: Reports: Hx Seizures - r/t alcohol withdrawl Denies: Hx Dementia, Other Neuro Impairments/Disorders Psychiatric History: Reports: Hx Anxiety, Hx Depression, Hx Community Mental Health Tx, Hx Substance Abuse, Other Psychiatric Issues/Disorders - substance abuse Denies: Hx Eating Disorder, Hx of Violent Episodes Against Others - Surgical History Surgery Procedure, Year, and Place: [place] Teeth Extraction. Moles Removed - Immunization History Date of Tetanus Vaccine: UNK Date of Influenza Vaccine: NONE Infectious Disease History: No Infectious Disease History: Denies: Hx Clostridium Difficile, Hx Hepatitis, Hx Human Immunodeficiency Virus (HIV), Hx of Known/Suspected MRSA, Hx Shingles, Hx Tuberculosis, Hx Known/ Suspected VRE, Hx Known/Suspected VRSA, History Other Infectious Disease, Traveled Outside the [place] in Last 30 Days - Family History Known Family History: Positive: Other - EtOH abuse and depression per EMR. - Social History Alcohol Use: unknown frequency Alcohol Amount: 10 day binge Hx Substance Use: No Substance Use Type: Reports: Other Substance Use Comment - Amount & Last Used: unknown Hx Tobacco Use: Yes Smoking Status (MU): Current Every Day Smoker Type: Cigarettes Amount Used/How Often: 1/2 PPD Have You Smoked in the Last Year: Yes Review of Systems Constitutional: Negative Eyes: Negative ENT: Negative Cardiovascular: Negative Respiratory: Negative Gastrointestinal: Negative Genitourinary: Negative Musculoskeletal: Negative Skin: Negative Neurological: Negative Psychological: Other - ideations of self harm All Other Systems Reviewed And Are Negative: Yes Physical Exam - Summary Physical Exam Summary: VITAL SIGNS: Reviewed. GENERAL: Patient is a well developed and nourished male with alcohol in his breath, who is lying comfortable in the stretcher. Patient is not in any acute respiratory distress. HEAD AND FACE: No signs of trauma. No ecchymosis, hematomas or skull depressions. No sinus tenderness. EYES: PERRLA, EOMI x 2, No injected conjunctiva, no nystagmus. EARS: Hearing grossly intact. Ear canals and tympanic membranes are within normal limits. MOUTH: Oropharynx within normal limits. NECK: Supple, trachea is midline, no adenopathy, no JVD, no carotid bruit, no c- spine tenderness, neck with full ROM. CHEST: Symmetric, no tenderness at palpation LUNGS: Clear to auscultation bilaterally. No wheezing or crackles. CVS: Regular rate and rhythm, S1 and S2 present, no murmurs or gallops appreciated. ABDOMEN: Soft, non-tender. No signs of distention. No rebound no guarding, and no masses palpated. Bowel sounds are normal. EXTREMITIES: FROM in all major joints, no edema, no cyanosis or clubbing. NEURO: Alert and oriented x 3. No acute neurological deficits. Speech is normal and follows commands. SKIN: Dry and warm PSYCH: Depressed, quiet, positive any suicidal thoughts and plan. No homicidal thoughts or plan. No signs of psychosis or pressure speech. No tangential speech. Triage Information Reviewed: Yes Vital Signs On Initial Exam: Initial Vitals Temp Pulse Resp BP Pulse Ox 98.8 F 102 18 157/97 100 01/29/17 14:56 01/29/17 14:56 01/29/17 14:56 01/29/17 14:56 01/29/17 14:56 Vital Signs Reviewed: Yes Diagnostics - Vital Signs Vital Signs Temp Pulse Resp BP Pulse Ox 01/29/17 14:56 98.8 F 102 18 157/97 100 - Laboratory Lab Results: Lab Results 01/29/17 Range/Units 15:10 WBC 12.3 H (3.5-10.8) 10^3/ul RBC 4.32 (4.0-5.4) 10^6/ul Hgb 13.4 L (14.0-18.0) g/dl Hct 40 L (42-52) % MCV 92 (80-94) fL MCH 31 (27-31) pg MCHC 34 (31-36) g/dl RDW 14 (10.5-15) % Plt Count 253 (150-450) 10^3/ul MPV 8 (7.4-10.4) um3 Neut % (Auto) 76.3 (38-83) % Lymph % (Auto) 14.2 L (25-47) % Grand % (Auto) 8.3 (1-9) % Eos % (Auto) 0.4 (0-6) % Baso % (Auto) 0.8 (0-2) % Absolute Neuts (auto) 9.4 H (1.5-7.7) 10^3/ul Absolute Lymphs (auto) 1.7 (1.0-4.8) 10^3/ul Absolute Monos (auto) 1.0 H (0-0.8) 10^3/ul Absolute Eos (auto) 0.1 (0-0.6) 10^3/ul Absolute Basos (auto) 0.1 (0-0.2) 10^3/ul Absolute Nucleated RBC 0 10^3/ul Nucleated RBC % 0 Result Diagrams: 01/29/17 15:10 01/29/17 15:10 Lab Statement: Any lab studies that have been ordered have been reviewed, and results considered in the medical decision making process. Altered Mental Statu Course/Dx - Course Assessment/Plan: A 36 y/o male presents to the ED with ideations of self harm since a month ago. The patient states that he wants to drink himself to . He tried to hurt himself in the past a couple of years ago. Hx of anxiety. He takes celexa. PMHx essential tremors. The patient drank a 6 pack today and has binged for the past 5 days. He does not use recreational drugs. Blood work shoes WBC of 12.3 with slight anemia. AST and ALT slight elevated secondary to his alcohols. Toxicology showed positive benzodiazepines and serum alcohol of 243. The patient has remained stable. The patient cleared for a MHE. Dr. Gardner the psychiatrist recommends the patient be admitted with a Dx of substance abuse mood disorder. Since there are no beds in the hospital the patient will have to be transferred. At this time, psychiatric skein straightener is working on the patients transport. At this point, the patient became slightly tachycardiac, hypertensive, anxious, and developed tremors. I gave the patient a banana bag and valium for his possible withdraw. At this time, I discussed my physical exam findings with Dr Lay who also recommends the above medications. If the patients symptoms worsen he will admit the patient into his services. He also recommends the patient stay in the ED to see if symptoms worsen. I also discussed by physical exam findings with Dr. Garibay who will follow the patients vital and will advise Dr. Robbins if his symptoms worsen. - Diagnoses Differential Diagnosis/HQI/PQRI: Intoxication, Other - Suicidal ideation, Suicidal plan, Alcohol intoxication Discharge Diagnoses: substance abuse mood disorder - Provider Notifications Discussed Care Of Patient With: Dr. Robbins (Hospitalist) at 21:45 -- Notified of patient's history. Dr. Garibay (ER) at 22:00 -- Notified of paitent's history and accepts transfer of care. Discharge - Discharge Plan Condition: Stable Disposition: OTHER Discharge Disposition Comment: The patient will be signed out to Dr. Garibay pending transfer. The documentation as recorded by the David covington Matthew accurately reflects the service I personally performed and the decisions made by me, Freddy Landry MD.
[2017-02-02 11:35] VITALS: BP 155/94
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
[2017-02-02] MEDS ORDERED: Propranolol TAB* 20 MG PO ONE (13:00)
== END 2017-02-02 13:10 | disposition home or self-care (01) | DRG 755 ==
LOC: ED 14:54 → BSU 01-30 13:18
PROVIDERS: ADMIT Psychiatry & Neurology Psychiatry; ATTEND Psychiatry & Neurology Psychiatry
DX: F43.29 Adjustment disorder with other symptoms (principal); F32.9 Major depressive disorder, single episode, unspecified; F41.0 Panic disorder [episodic paroxysmal anxiety]; F41.1 Generalized anxiety disorder; G25.0 Essential tremor; Z91.010 Allergy to peanuts; Z81.1 Family history of alcohol abuse and dependence; Z81.8 Family history of other mental and behavioral disorders; F17.210 Nicotine dependence, cigarettes, uncomplicated; Z72.89 Other problems related to lifestyle
CPT/HCPCS: 36415; 80053; 80307; 80320; 80329; 81003; 81015; 84443; 85025; 99222; 99231; 99238; A9270-GY; G0480; J0171; J2060; J2405; J3360

== ENCOUNTER 2017-02-05 16:37 | Emergency (ER) | payer OTHER ==
[2017-02-05 17:57] LABS: Hematocrit 42 % (42-52); Hemoglobin 14.1 g/dl (14.0-18.0); Mean Corpuscular HGB Conc 33 g/dl (31-36); Mean Corpuscular Hemoglobin 31 pg (27-31); Mean Corpuscular Volume 94 fL (80-94); Mean Platelet Volume 8 um3 (7.4-10.4); Red Blood Count 4.51 10^6/ul (4.0-5.4); Red Cell Distribution Width 15 % (10.5-15); White Blood Count 6.1 10^3/ul (3.5-10.8)
[2017-02-05 18:06] LABS: Urine Bacteria 1+ (Absent); Urine Bilirubin Negative (Negative); Urine Glucose Negative (Negative); Urine Nitrite Negative (Negative)
[2017-02-05 18:12] LABS: Benzodiazepine Urine Screen Presumptive Positive (None Detect)
[2017-02-05 18:13] LABS: ALT 140 U/L (7-52); AST 102 U/L (13-39); Albumin 4.6 g/dL (3.2-5.2); Alkaline Phosphatase 57 U/L (34-104); Anion Gap 8 mmol/L (2-11); BUN/Creatinine Ratio 6.8 (8-20); Blood Urea Nitrogen 5 mg/dL (6-24); CO2 Carbon Dioxide 29 mmol/L (22-32); Calcium 9.2 mg/dL (8.6-10.3); Chloride 103 mmol/L (101-111); EGFR African American 157.2 (>60); EGFR Non-African American 122.3 (>60); Globulin 2.9 g/dL (2-4); Glucose 98 mg/dL (70-100); Sodium 140 mmol/L (133-145); Total Protein 7.5 g/dL (6.4-8.9)
[2017-02-05 18:19] LABS: Acetaminophen < 15 mcg/mL; Alcohol 269 mg/dL (<10); Salicylate < 2.50 mg/dL (<30)
[2017-02-05 18:28] LABS: TSH (Thyroid Stimulating Horm) 0.22 mcIU/mL (0.34-5.60)
[2017-02-05 23:09] VITALS: BP 126/70
--- NOTE | 2017-02-07 07:36 | ED ---
Deangelo Aparicio Erika, scribed for Rachid Colón MD on 02/05/17 at 1753 . Substance Abuse/Use - HPI Summary HPI Summary: Patient is a 36-year-old male presenting to the ED with a CC of EtOH use. Patient reports he drinks beer daily - he states he has about 1 case/day. 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 Patient states he is here "to sober up," and reports that he will be starting rehab tomorrow. Patient lives with his . - History Of Current Complaint Chief Complaint: EDDetoxRequest Stated Complaint: ETOH Time Seen by Provider: 02/05/17 17:03 Hx Obtained From: Patient, Family/Field Artillery Targeting Technician - Father Ingestion History: Type/Name Of Drug - EtOH, Amount Ingested - 12+/day, Approximate Time Of Ingestion - MAINTENANCE DIRECTOR Timing Of Abuse: Daily Severity Currently: Moderate Character: Stuporous - Allergies/Home Medications Allergies/Adverse Reactions: Allergies Allergy/AdvReac Type Severity Reaction Status Date / Time Peanut-containing Drug Allergy Severe Anaphylatic Verified 02/05/17 16:57 Products Shock PMH/Surg Hx/FS Hx/Imm Hx Endocrine/Hematology History: Denies: Hx Anticoagulant Therapy, Hx Diabetes - general medical health ok. hx addiction. recently d/c'd from [facility], Hx Thyroid Disease, Other Endocrine/Hematological Disorders Cardiovascular History: Denies: Hx Hypertension, Hx Pacemaker/ICD, Other Cardiovascular Problems/ Disorders Respiratory History: Denies: Hx Asthma, Hx Chronic Obstructive Pulmonary Disease (COPD), Other Respiratory Problems/Disorders GI History: Denies: Hx Ulcer, Other GI Disorders History: Denies: Hx Renal Disease, Other Problems/Disorders Musculoskeletal History: Reports: Hx Orthopedic Injury - Reports current broken nose after falling while intoxicated. Denies: Other Musculoskeletal History Sensory History: Denies: Other Sensory Impairments Opthamlomology History: Denies: Other Sensory Impairments Neurological History: Reports: Hx Seizures - r/t alcohol withdrawl Denies: Hx Dementia, Other Neuro Impairments/Disorders Psychiatric History: Reports: Hx Anxiety, Hx Attention Deficit Hyperactivity Disorder, Hx Depression, Hx Inpatient Treatment, Hx Community Mental Health Tx, Hx Substance Abuse, Other Psychiatric Issues/Disorders - substance abuse Denies: Hx Eating Disorder, Hx Suicide Attempt, Hx of Violent Episodes Against Others - Surgical History Surgery Procedure, Year, and Place: [place] Teeth Extraction. Moles Removed - Immunization History Date of Tetanus Vaccine: UNK Date of Influenza Vaccine: NONE Infectious Disease History: No Infectious Disease History: Denies: Hx Clostridium Difficile, Hx Hepatitis, Hx Human Immunodeficiency Virus (HIV), Hx of Known/Suspected MRSA, Hx Shingles, Hx Tuberculosis, Hx Known/ Suspected VRE, Hx Known/Suspected VRSA, History Other Infectious Disease, Traveled Outside the [place] in Last 30 Days - Family History Known Family History: Positive: Other - EtOH abuse and depression per EMR. - Social History Alcohol Use: Daily Hx Tobacco Use: Yes Smoking Status (MU): Current Every Day Smoker Type: Cigarettes Amount Used/How Often: 1/2 PPD Have You Smoked in the Last Year: Yes Review of Systems Negative: Fever Neurological: Other - Intoxicated All Other Systems Reviewed And Are Negative: Yes Physical Exam Triage Information Reviewed: Yes Vital Signs On Initial Exam: Initial Vitals Temp Pulse Resp BP Pulse Ox 98.3 F 104 16 147/70 100 02/05/17 16:57 02/05/17 16:57 02/05/17 16:57 02/05/17 16:57 02/05/17 16:57 Vital Signs Reviewed: Yes Appearance: Positive: Well-Appearing, No Pain Distress Skin: Positive: Warm, Skin Color Reflects Adequate Perfusion, Dry Head/Face: Positive: Normal Head/Face Inspection Eyes: Positive: Normal ENT: Positive: Normal ENT inspection Neck: Positive: Supple, Nontender Respiratory/Lung Sounds: Positive: Clear to Auscultation, Breath Sounds Present Cardiovascular: Positive: Tachycardia - at 104 bpm on triage Abdomen Description: Positive: Nontender, Soft Bowel Sounds: Positive: Present Musculoskeletal: Positive: Normal Neurological: Positive: Other - EtOH on breath Psychiatric: Positive: Other - EtOH on breath Diagnostics - Vital Signs Vital Signs Temp Pulse Resp BP Pulse Ox 02/05/17 16:57 98.3 F 104 16 147/70 100 - Laboratory Lab Results: Lab Results 02/05/17 02/05/17 02/05/17 Range/Units 17:25 17:25 17:25 WBC 6.1 (3.5-10.8) 10^3/ul RBC 4.51 (4.0-5.4) 10^6/ul Hgb 14.1 (14.0-18.0) g/dl Hct 42 (42-52) % MCV 94 (80-94) fL MCH 31 (27-31) pg MCHC 33 (31-36) g/dl RDW 15 (10.5-15) % Plt Count 245 (150-450) 10^3/ul MPV 8 (7.4-10.4) um3 Neut % (Auto) 48.9 (38-83) % Lymph % (Auto) 34.5 (25-47) % [place] % (Auto) 13.7 H (1-9) % Eos % (Auto) 2.0 (0-6) % Baso % (Auto) 0.9 (0-2) % Absolute Neuts (auto) 3.0 (1.5-7.7) 10^3/ul Absolute Lymphs (auto) 2.1 (1.0-4.8) 10^3/ul Absolute Monos (auto) 0.8 (0-0.8) 10^3/ul Absolute Eos (auto) 0.1 (0-0.6) 10^3/ul Absolute Basos (auto) 0.1 (0-0.2) 10^3/ul Absolute Nucleated RBC 0.01 10^3/ul Nucleated RBC % 0.1 Sodium 140 (133-145) mmol/L Potassium 4.0 (3.5-5.0) mmol/L Chloride 103 (101-111) mmol/L Carbon Dioxide 29 (22-32) mmol/L Anion Gap 8 (2-11) mmol/L BUN 5 L (6-24) mg/dL Creatinine 0.73 (0.67-1.17) mg/dL Est GFR ( Amer) 157.2 (>60) Est GFR (Non-Af Amer) 122.3 (>60) BUN/Creatinine Ratio 6.8 L (8-20) Glucose 98 (70-100) mg/dL Calcium 9.2 (8.6-10.3) mg/dL Total Bilirubin 0.30 (0.2-1.0) mg/dL AST 102 H (13-39) U/L ALT 140 H (7-52) U/L Alkaline Phosphatase 57 (34-104) U/L Total Protein 7.5 (6.4-8.9) g/dL Albumin 4.6 (3.2-5.2) g/dL Globulin 2.9 (2-4) g/dL Albumin/Globulin Ratio 1.6 (1-3) TSH 0.22 L (0.34-5.60) mcIU/mL Urine Color Straw Urine Appearance Clear Urine pH 5.0 (5-9) Ur Specific [place] 1.005 L (1.010-1.030) Urine Protein Negative (Negative) Urine Ketones Negative (Negative) Urine Blood 1+ H (Negative) Urine Nitrate Negative (Negative) Urine Bilirubin Negative (Negative) Urine Urobilinogen Negative (Negative) Ur Leukocyte Esterase Negative (Negative) Urine WBC (Auto) Absent (Absent) Urine RBC (Auto) Trace(0-2/hpf) (Absent) Urine Bacteria 1+ H (Absent) Urine Glucose Negative (Negative) Salicylates < 2.50 (<30) mg/dL Urine Opiates Screen (None Detect) Acetaminophen < 15 mcg/mL Ur Barbiturates Screen (None Detect) Ur Phencyclidine Scrn (None Detect) Ur Amphetamines Screen (None Detect) U Benzodiazepines Scrn (None Detect) Urine Cocaine Screen (None Detect) U Cannabinoids Screen (None Detect) Serum Alcohol 269 H (<10) mg/dL 02/05/17 Range/Units 17:25 WBC (3.5-10.8) 10^3/ul RBC (4.0-5.4) 10^6/ul Hgb (14.0-18.0) g/dl Hct (42-52) % MCV (80-94) fL MCH (27-31) pg MCHC (31-36) g/dl RDW (10.5-15) % Plt Count (150-450) 10^3/ul MPV (7.4-10.4) um3 Neut % (Auto) (38-83) % Lymph % (Auto) (25-47) % [place] % (Auto) (1-9) % Eos % (Auto) (0-6) % Baso % (Auto) (0-2) % Absolute Neuts (auto) (1.5-7.7) 10^3/ul Absolute Lymphs (auto) (1.0-4.8) 10^3/ul Absolute Monos (auto) (0-0.8) 10^3/ul Absolute Eos (auto) (0-0.6) 10^3/ul Absolute Basos (auto) (0-0.2) 10^3/ul Absolute Nucleated RBC 10^3/ul Nucleated RBC % Sodium (133-145) mmol/L Potassium (3.5-5.0) mmol/L Chloride (101-111) mmol/L Carbon Dioxide (22-32) mmol/L Anion Gap (2-11) mmol/L BUN (6-24) mg/dL Creatinine (0.67-1.17) mg/dL Est GFR ( Amer) (>60) Est GFR (Non-Af Amer) (>60) BUN/Creatinine Ratio (8-20) Glucose (70-100) mg/dL Calcium (8.6-10.3) mg/dL Total Bilirubin (0.2-1.0) mg/dL AST (13-39) U/L ALT (7-52) U/L Alkaline Phosphatase (34-104) U/L Total Protein (6.4-8.9) g/dL Albumin (3.2-5.2) g/dL Globulin (2-4) g/dL Albumin/Globulin Ratio (1-3) TSH (0.34-5.60) mcIU/mL Urine Color Urine Appearance Urine pH (5-9) Ur Specific [place] (1.010-1.030) Urine Protein (Negative) Urine Ketones (Negative) Urine Blood (Negative) Urine Nitrate (Negative) Urine Bilirubin (Negative) Urine Urobilinogen (Negative) Ur Leukocyte Esterase (Negative) Urine WBC (Auto) (Absent) Urine RBC (Auto) (Absent) Urine Bacteria (Absent) Urine Glucose (Negative) Salicylates (<30) mg/dL Urine Opiates Screen None detected (None Detect) Acetaminophen mcg/mL Ur Barbiturates Screen None detected (None Detect) Ur Phencyclidine Scrn None detected (None Detect) Ur Amphetamines Screen None detected (None Detect) U Benzodiazepines Scrn Presumptive positive H (None Detect) Urine Cocaine Screen None detected (None Detect) U Cannabinoids Screen None detected (None Detect) Serum Alcohol (<10) mg/dL Result Diagrams: 02/05/17 17:25 02/05/17 17:25 Lab Statement: Any lab studies that have been ordered have been reviewed, and results considered in the medical decision making process. Course/Dx - Course Course Of Treatment: Mr. Butcher came in after drinking ETOH and was found to have a high blood alcohol and is being observed to see what his concern is when he julissa up. - Diagnoses Provider Diagnoses: Alcohol intolerance - Physician Notifications Discussed Care Of Patient With: Dr. Rose Time Discussed With Above Provider: 21:00 - Change of shift Discharge - Discharge Plan Condition: Stable Disposition: HOME Patient Education Materials: Alcohol Intoxication (ED) Referrals: Bala Grady III, COAL DUMPING EQUIPMENT OPERATOR [Primary Care Provider] - The documentation as recorded by the Deangelo covington Erika accurately reflects the service I personally performed and the decisions made by me, Rachid Colón MD.
== END 2017-02-05 23:09 | disposition home or self-care (01) ==
LOC: ED 16:37
DX: F10.129 Alcohol abuse with intoxication, unspecified (principal); F17.210 Nicotine dependence, cigarettes, uncomplicated
CPT/HCPCS: 36415; 80053; 80307; 80320; 80329; 81003; 81015; 84443; 85025; 87086; 99283; G0480

== ENCOUNTER 2017-02-05 23:53 | Inpatient (IN) | payer OTHER ==
[2017-02-06] MEDS ORDERED: LORazepam INJ* 2 MG/ML 1 ML VIAL IM ONE (00:20)
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
[2017-02-06] MEDS: Folic Acid TAB* 1 MG DAILY PO SCH (11:00)
[2017-02-06] MEDS: Citalopram TAB* 40 MG PO SCH (11:00)
[2017-02-06] MEDS: LORazepam TAB(*) WAM SCALE 0-6 MG PO SCH ×2 (12:29→18:34)
[2017-02-06] MEDS: Propranolol TAB* 20 MG PO SCH ×2 (13:09→20:38)
[2017-02-06] MEDS ORDERED: Mouth Piece, Nicotine* 1 EACH CARTRIDGE INH SCH (20:26)
[2017-02-06] MEDS: Nicotine Inhaler* 10 MG AMP INH PRN (20:37)
[2017-02-06] MEDS: Nicotine GUM* 2 MG PO PRN (20:37)
[2017-02-06] MEDS: Nicotine PATCH 14 MG/24 HR* PATCH TRANSDERM SCH (22:16)
[2017-02-07] MEDS: Propranolol TAB* 20 MG PO SCH ×2 (09:22→22:12)
[2017-02-07] MEDS: Citalopram TAB* 40 MG PO SCH (09:23)
[2017-02-07] MEDS: Vitamin THERAPEUTIC TAB PO SCH (09:23)
[2017-02-07] MEDS: Thiamine TAB* 100 MG TAB DAILY (@ T+1) PO SCH (09:23)
[2017-02-07] MEDS: Folic Acid TAB* 1 MG DAILY PO SCH (09:23)
[2017-02-07] MEDS: Nicotine Inhaler* 10 MG AMP INH PRN ×5 (09:25→22:14)
[2017-02-07] MEDS: Nicotine GUM* 2 MG PO PRN ×5 (09:25→22:15)
[2017-02-07] MEDS: Nicotine PATCH 14 MG/24 HR* PATCH TRANSDERM SCH (09:34)
[2017-02-07] MEDS: LORazepam TAB(*) WAM SCALE 0-6 MG PO SCH ×3 (09:56→22:12)
--- NOTE | 2017-02-07 11:15 | PN ---
MHU: Group Therapy Note - Service Type Service Type: [id number] Group Psychotherapy - Cognitive Behavioral Group Therapy ( CBT):Patient was attentive and participatory in CBT programming this morning, and remained in good behavioral control. Patient expressed positive insights regarding relevant treatment interventions and goals.
--- NOTE | 2017-02-07 13:33 | HP ---
PSYCHIATRIC HISTORY AND PHYSICAL: DATE OF ADMISSION: 02/06/17 JUSTIFICATION FOR ADMISSION: The patient is in need of 24-hour supervision and treatment secondary to suicidal ideations with a plan to drink himself to . CHIEF COMPLAINT: "When I left here, I just immediately started drinking again." HISTORY OF PRESENT ILLNESS: For a complete history, please refer to the psychiatric H and P dictate d by Dr. Ramesh Dunlap on 01/31/17. Mr. Butcher is a 36- year-old single homosexual white male with a history of severe alcoholism who was just discharged from our service on , 02/02/17, who no w returns in the company of his father, complaining of suicidal ideations and having relapsed very q uickly on alcohol. I asked the patient what had happened in between and today, and he saul cates that when he left the hospital he almost immediately went to a liquor store buying large quant ities of alcohol and consuming them. He states that once he started he could not stop. He realized after the fact that it was a mistake not going to a rehab facility and at this time he is endorsing a need for substance abuse rehab. The patient admits to feelings of alcohol withdrawal such as shakiness, diaphoresis. He indicates t hat he did not follow up with [facility] after discharge and he was willing to co me in on a voluntary basis. He states that his relationship with his significant other, which is hi s , is worse than ever and he does not feel like he would be safe for discharge to the critical access hospital. MENTAL STATUS EXAMINATION: The patient is a middle-aged white male who is clean and well groomed. He is somewhat feminine wearing ripped jeans, stylish, somewhat ostentatious clothing. Speech has a normal rate, tone, and volume. Mood appears to be depressed with an anxious affect. Thought proce ss is linear and goal directed. Thought content is significant for his desire to get into rehab. A t this time he is denying suicidal or homicidal ideations. He denies auditory or visual hallucinati ons. Insight and judgment appears to be fair given his willingness to go to rehab at this time. Co gnitively he is awake and alert with what appeared to be an average intellect. DIAGNOSES: [place] I: Alcohol use disorder, alcohol-induced mood disorder, generalized anxiety disorde r by history. [place] II: Cluster B traits. [place] III: Benign essential tremor. [place] IV: Severe prima ry support stressors. [place] V: At this time is 36. IMPRESSION: The patient is a 36-year-old single homosexual white male who returns to the hospital s everal days after being discharged, having clearly relapsed on alcohol and requiring detoxification and stabilization of his suicidal ideations. I asked Mr. Butcher whether he would consider drug rehabi litation at this time and he answers emphatically that yes he would. PLAN: The patient is readmitted to the adult-behavioral health unit where he is placed on q.30 randi te checks for his own safety. We will initiate the WAM protocol in order to safely detoxify him and I will have social work start looking for placement in a secured rehab setting. While he is here, he is certainly encouraged to avail himself of all milieu activities including individual and group therapies. He seems medically stable at this time and his Celexa and propranolol have been resumed. [id number]/[facility] #: [id number]
[2017-02-07] MEDS: Nicotine Patch Removal NOTE PATCH OFF SCH (21:48)
[2017-02-08] MEDS: Vitamin THERAPEUTIC TAB PO SCH (09:44)
[2017-02-08] MEDS: Nicotine GUM* 2 MG PO PRN ×4 (09:44→18:12)
[2017-02-08] MEDS: Nicotine Inhaler* 10 MG AMP INH PRN ×4 (09:44→18:12)
[2017-02-08] MEDS: Thiamine TAB* 100 MG TAB DAILY (@ T+1) PO SCH (09:44)
[2017-02-08] MEDS: Propranolol TAB* 20 MG PO SCH ×2 (09:45→20:55)
[2017-02-08] MEDS: Folic Acid TAB* 1 MG DAILY PO SCH (09:45)
[2017-02-08] MEDS: Citalopram TAB* 40 MG PO SCH (09:45)
[2017-02-08] MEDS: Nicotine PATCH 14 MG/24 HR* PATCH TRANSDERM SCH (09:47)
--- NOTE | 2017-02-08 11:57 | PN ---
MHU: Group Therapy Note - Service Type Service Type: 23933 Group Psychotherapy - Cognitive Behavioral Group Therapy ( CBT):Patient was attentive and participatory in CBT programming this morning, and remained in good behavioral control. Patient expressed positive insights regarding relevant treatment interventions and goals.
--- NOTE | 2017-02-08 14:27 | PN ---
Subjective - Subjective Service Type: 50997 Hosp care 15 min low complexity Subjective: The patient complains of shakiness but has not met physiological criteria for lorazepam in accordance with the [facility] protocol. He is calm and cooperative and continues to endorse the expectation of going directly from here to an inpatient rehab facility. He denies SI. Objective - Appearance Appearance: Well Developed/Nourished Dysmorphic Features: No - Behavior Psychomotor Activities: Normal Exhibits Abnormal Movement: Yes - Attitude and Relatedness Attitude and Relatedness: Cooperative Eye Contact: Good - Speech Quality: Unpressured Latencies: Normal Quantity: Appropriate - Mood Patient's Decription of Mood: "Anxious" - Affect Observed Affect: Fair Affect Consistent with: Dysphoria - Thought Process Patient's Thought Process: Coherent Thought Content: No Passive Wish, No Suicidal Planning, No Homicidal Ideation, No Paranoid Ideation - Sensorium Experiencing Hallucinations: No, Sensorium is Clear Type of Hallucinations: Visual: No, Auditory: No, Command: No - Level of Consciousness Level of Consciousness: Alert Orientation: Yes Intact, Yes Orientated to Time, Yes Orientated to Place, Yes Orientated to Person - Impulse Control Impulse Control: Poor - Insight and Judgement Insight and Judgement: Impaired - Group Participation Particating in Group Activities: Yes - Medication Management Medication Management Adherence: Yes Assessment - Assessment Merits Inpatient Hospitalization: Consolidate Improvements, Pending Safe DC Plan Inpatient DSM-IV Dx: 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 , homosexual white male with a history of chronic alcohol dependence readmitted following a recent [facility], who now returns following relapse on alcohol and endorsing SI with plan to drink himself to . Plan - Plan Treatment Plan: Name: KEO GUZMAN Birthdate: 1980 [id number] The patient seems to be doing well and the plan is to get him into an inpatient alcohol rehab facility. He is taking citalopram and propranolol. Continue WAM protocol and transfer to rehab pending bed availability. Continued Medication Management: Continue Outpt Medication Medications: Current Medications Acetaminophen (Tylenol Tab*) 650 mg PO Q4H PRN PRN Reason: for pain; or Temp >101 F Citalopram Hydrobromide (Celexa Tab*) 40 mg PO DAILY TIFFANIE Last Admin: 02/08/17 09:45 Dose: 40 mg Device (Nicotine Mouth Piece*) 1 each INH .[facility] Folic Acid (Folvite Tab*) 1 mg PO DAILY [facility] Last Admin: 02/08/17 09:45 Dose: 1 mg Lorazepam (Ativan Tab(*)) 0 - 6 mg PO .PER [facility] PARAMETERS [facility] PRN Reason: Protocol Last Admin: 02/07/17 22:12 Dose: 2 mg Multivitamins (Theragran Tab*) 1 tab PO DAILY [facility] Last Admin: 02/08/17 09:44 Dose: 1 tab Nicotine (Nicotine Inhaler*) 10 mg INH Q2H PRN PRN Reason: CRAVING Last Admin: 02/08/17 12:00 Dose: 10 mg Nicotine (Nicotine Patch 14 Mg/24 Hr*) 1 patch TRANSDERM DAILY [facility] Last Admin: 02/08/17 09:47 Dose: Not Given Nicotine Polacrilex (Nicotine Gum*) 2 mg PO Q2H PRN PRN Reason: CRAVING Last Admin: 02/08/17 12:00 Dose: 2 mg Pharmacy Profile Note (Nicotine Patch Removal Note*) 1 note PATCH OFF 2100 [facility] Last Admin: 02/07/17 21:48 Dose: Not Given Propranolol HCl (Inderal Tab*) 30 mg PO BID [facility] Last Admin: 02/08/17 09:45 Dose: 30 mg Thiamine HCl (Vitamin B-1 Tab*) 100 mg PO DAILY [facility] Last Admin: 02/08/17 09:44 Dose: 100 mg - Discharge Plan Discharge Plan: Drug/Alcohol Rehab
[2017-02-08] MEDS: LORazepam TAB(*) WAM SCALE 0-6 MG PO SCH ×2 (17:04→21:25)
[2017-02-08] MEDS: Nicotine Patch Removal NOTE PATCH OFF SCH (21:37)
--- NOTE | 2017-02-09 01:00 | ED ---
David Aparicio Matthew, scribed for mOi Garibay MD on 02/06/17 at 0933 . Progress - Progress Note Progress Note: The patient is a sign out from Dr. Riggs. - EKG/XRAY/CT EKG: NSR - 68 bpm Comments: No Ectopy; Peaked T Waves in Anterior and Inferior Leads; 09:03 - Consult/PCP Time Called: 00:25 Course/Dx - Diagnoses Provider Diagnoses: Suicidal ideation, Alcohol dependence - Provider Notifications Instructed by Provider To: Admit As Inpatient The documentation as recorded by the hugoibDavid pyle Matthew accurately reflects the service I personally performed and the decisions made by , Omi Garibay MD.
[2017-02-09] MEDS: Thiamine TAB* 100 MG TAB DAILY (@ T+1) PO SCH (09:45)
[2017-02-09] MEDS: Propranolol TAB* 20 MG PO SCH ×2 (10:05→20:08)
[2017-02-09] MEDS: Vitamin THERAPEUTIC TAB PO SCH (10:06)
[2017-02-09] MEDS: Folic Acid TAB* 1 MG DAILY PO SCH (10:06)
[2017-02-09] MEDS: Citalopram TAB* 40 MG PO SCH (10:06)
[2017-02-09] MEDS: Nicotine PATCH 14 MG/24 HR* PATCH TRANSDERM SCH (10:07)
[2017-02-09] MEDS: Nicotine Inhaler* 10 MG AMP INH PRN ×6 (10:08→20:07)
[2017-02-09] MEDS: Nicotine GUM* 2 MG PO PRN ×6 (10:09→20:07)
[2017-02-09] MEDS: LORazepam TAB(*) WAM SCALE 0-6 MG PO SCH ×3 (12:04→21:03)
--- NOTE | 2017-02-09 12:17 | PN ---
Subjective - Subjective Service Type: 26814 Hosp care 15 min low complexity Subjective: The patient is calm and cooperative. He is shaky on presentation and is still requiring prn lorazepam in accordance with our detox protocol. The patient denies SI and states he is awaiting rehab placement "somewhere nice." Objective - Appearance Appearance: Well Developed/Nourished Dysmorphic Features: No Hygiene: Normal Grooming: Well Kept - Behavior Psychomotor Activities: Abnormal-Increased Exhibits Abnormal Movement: Yes - Attitude and Relatedness Attitude and Relatedness: Cooperative Eye Contact: Good - Speech Quality: Unpressured Latencies: Normal Quantity: Appropriate - Mood Patient's Decription of Mood: "Anxious" - Affect Observed Affect: Tense Affect Consistent with: Dysphoria - Thought Process Patient's Thought Process: Coherent Thought Content: No Passive Wish, No Suicidal Planning, No Homicidal Ideation, No Paranoid Ideation - Sensorium Experiencing Hallucinations: No, Sensorium is Clear Type of Hallucinations: Visual: No, Auditory: No, Command: No - Level of Consciousness Level of Consciousness: Alert Orientation: Yes Intact, Yes Orientated to Time, Yes Orientated to Place, Yes Orientated to Person - Impulse Control Impulse Control: Tenuous - Insight and Judgement Insight and Judgement: Fair - Group Participation Particating in Group Activities: No - Medication Management Medication Management Adherence: Yes Assessment - Assessment Merits Inpatient Hospitalization: Consolidate Improvements, Pending Safe DC Plan Inpatient DSM-IV Dx: 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 , homosexual white male with a history of chronic alcohol dependence readmitted following a recent [facility]c [facility] the [facility] on [facility], who now returns following relapse on alcohol and endorsing SI with plan to drink himself to . Plan - Plan Treatment Plan: Name: KEO GUZMAN Birthdate: 1980 [id number] The patient seems to be doing well and the plan is to get him into an inpatient alcohol rehab facility. He is taking citalopram and propranolol. Continue WAM protocol and transfer to rehab pending bed availability. Continued Medication Management: Continue Outpt Medication Medications: Current Medications Acetaminophen (Tylenol Tab*) 650 mg PO Q4H PRN PRN Reason: for pain; or Temp >101 F Citalopram Hydrobromide (Celexa Tab*) 40 mg PO DAILY TIFFANIE Last Admin: 02/09/17 10:06 Dose: 40 mg Device (Nicotine Mouth Piece*) 1 each INH .[facility] Folic Acid (Folvite Tab*) 1 mg PO DAILY [facility] Last Admin: 02/09/17 10:06 Dose: 1 mg Lorazepam (Ativan Tab(*)) 0 - 6 mg PO .PER [place] [facility]ETERS [facility] PRN Reason: Protocol Last Admin: 02/09/17 12:04 Dose: 2 mg Multivitamins (Theragran Tab*) 1 tab PO DAILY [facility] Last Admin: 02/09/17 10:06 Dose: 1 tab Nicotine (Nicotine Inhaler*) 10 mg INH Q2H PRN PRN Reason: CRAVING Last Admin: 02/09/17 12:08 Dose: 10 mg Nicotine (Nicotine Patch 14 Mg/24 Hr*) 1 patch TRANSDERM DAILY [facility] Last Admin: 02/09/17 10:07 Dose: 1 patch Nicotine Polacrilex (Nicotine Gum*) 2 mg PO Q2H PRN PRN Reason: CRAVING Last Admin: 02/09/17 12:11 Dose: 2 mg Pharmacy Profile Note (Nicotine Patch Removal Note*) 1 note PATCH OFF 2100 [facility] Last Admin: 02/08/17 21:37 Dose: Not Given Propranolol HCl (Inderal Tab*) 30 mg PO BID [facility] Last Admin: 02/09/17 10:05 Dose: 30 mg Thiamine HCl (Vitamin B-1 Tab*) 100 mg PO DAILY [facility] Last Admin: 02/09/17 09:45 Dose: 100 mg - Discharge Plan Discharge Plan: Drug/Alcohol Rehab
[2017-02-09] MEDS: Acetaminophen TAB* 325 MG PO PRN (15:16)
[2017-02-09] MEDS: Nicotine Patch Removal NOTE PATCH OFF SCH (20:07)
[2017-02-10] MEDS: Nicotine PATCH 14 MG/24 HR* PATCH TRANSDERM SCH (09:16)
[2017-02-10] MEDS: Propranolol TAB* 20 MG PO SCH ×2 (09:17→21:28)
[2017-02-10] MEDS: Thiamine TAB* 100 MG TAB DAILY (@ T+1) PO SCH (09:17)
[2017-02-10] MEDS: Vitamin THERAPEUTIC TAB PO SCH (09:18)
[2017-02-10] MEDS: Citalopram TAB* 40 MG PO SCH (09:18)
[2017-02-10] MEDS: Acetaminophen TAB* 325 MG PO PRN ×2 (09:18→21:30)
[2017-02-10] MEDS: LORazepam TAB(*) WAM SCALE 0-6 MG PO SCH ×2 (09:18→14:04)
[2017-02-10] MEDS: Folic Acid TAB* 1 MG DAILY PO SCH (09:18)
[2017-02-10] MEDS: Nicotine GUM* 2 MG PO PRN ×5 (09:23→21:28)
[2017-02-10] MEDS: Nicotine Inhaler* 10 MG AMP INH PRN ×5 (09:23→21:28)
--- NOTE | 2017-02-10 12:49 | PN ---
Subjective - Subjective Service Type: 88250 Hosp care 15 min low complexity Subjective: Keo was set to go to the [facility] in [place], [place] this morning, however, he declined to go there, stating "I've heard really bad things about it there. I don't think it would be good for me." Later attempts to pivot towards a transfer to [facility] in [place] were unsuccessful and he remains hospitalized on our unit. He continues to deny SI and states his mood is "OK." Objective - Appearance Appearance: Well Developed/Nourished Dysmorphic Features: No Hygiene: Normal Grooming: Well Kept - Behavior Psychomotor Activities: Normal Exhibits Abnormal Movement: Yes - Attitude and Relatedness Attitude and Relatedness: Cooperative Eye Contact: Good - Speech Quality: Unpressured Latencies: Normal Quantity: Appropriate - Mood Patient's Decription of Mood: "Good" - Affect Observed Affect: Good Affect Consistent with: Euthymia - Thought Process Patient's Thought Process: Coherent Thought Content: No Passive Wish, No Suicidal Planning, No Homicidal Ideation, No Paranoid Ideation - Sensorium Experiencing Hallucinations: No, Sensorium is Clear Type of Hallucinations: Visual: No, Auditory: No, Command: No - Level of Consciousness Level of Consciousness: Alert Orientation: Yes Intact, Yes Orientated to Time, Yes Orientated to Place, Yes Orientated to Person - Impulse Control Impulse Control: Tenuous - Insight and Judgement Insight and Judgement: Fair - Group Participation Particating in Group Activities: No - Medication Management Medication Management Adherence: Yes Assessment - Assessment Merits Inpatient Hospitalization: Consolidate Improvements, Pending Safe DC Plan Inpatient DSM-IV Dx: 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 , homosexual white male with a history of chronic alcohol dependence readmitted following a recent [facility]/c from the [facility] on [facility], who now returns following relapse on alcohol and endorsing SI with plan to drink himself to . Plan - Plan Treatment Plan: Name: KEO GUZMAN Birthdate: 1980 [id number] Cancel d/c to the [facility] per patient's wishes. He seems to be doing well and the plan is to get him into an inpatient alcohol rehab facility. He is taking citalopram 40mg PO qday and propranolol 30mg PO BID. Continue WAM protocol and transfer to rehab pending bed availability. Continued Medication Management: Continue Outpt Medication Medications: Current Medications Acetaminophen (Tylenol Tab*) 650 mg PO Q4H PRN PRN Reason: for pain; or Temp >101 F Last Admin: 02/10/17 09:18 Dose: 650 mg Citalopram Hydrobromide (Celexa Tab*) 40 mg PO DAILY [facility] Last Admin: 02/10/17 09:18 Dose: 40 mg Device (Nicotine Mouth Piece*) 1 each INH .[place] [facility] Folic Acid (Folvite Tab*) 1 mg PO DAILY [facility] Last Admin: 02/10/17 09:18 Dose: 1 mg Lorazepam (Ativan Tab(*)) 0 - 6 mg PO .PER [facility] PRN Reason: Protocol Last Admin: 02/10/17 09:18 Dose: 2 mg Multivitamins (Theragran Tab*) 1 tab PO DAILY [facility] Last Admin: 02/10/17 09:18 Dose: 1 tab Nicotine (Nicotine Inhaler*) 10 mg INH Q2H PRN PRN Reason: CRAVING Last Admin: 02/10/17 12:33 Dose: 10 mg Nicotine (Nicotine Patch 14 Mg/24 Hr*) 1 patch TRANSDERM DAILY [facility] Last Admin: 02/10/17 09:16 Dose: 1 patch Nicotine Polacrilex (Nicotine Gum*) 2 mg PO Q2H PRN PRN Reason: CRAVING Last Admin: 02/10/17 12:34 Dose: 2 mg Pharmacy Profile Note (Nicotine Patch Removal Note*) 1 note PATCH OFF 2100 [facility] Last Admin: 02/09/17 20:07 Dose: Not Given Propranolol HCl (Inderal Tab*) 30 mg PO BID [facility] Last Admin: 02/10/17 09:17 Dose: 30 mg Thiamine HCl (Vitamin B-1 Tab*) 100 mg PO DAILY [facility] Last Admin: 02/10/17 09:17 Dose: 100 mg - Discharge Plan Discharge Plan: Drug/Alcohol Rehab
--- NOTE | 2017-02-10 20:37 | DS ---
DISCHARGE SUMMARY: DATE OF ADMISSION: 02/06/17 DATE OF DISCHARGE: 02/10/17 DISCHARGE DIAGNOSES: As follows: [place] I: Alcohol use disorder; alcohol-induced mood disorder; generalized anxiety disorder by history. [place] II: Cluster B traits. [place] III: Benign essential tremor. [place] IV: Severe primary support stressors. [place] V: At the time of admission was 36 and at the time of discharge is 61. CONDITION AT THE TIME OF DISCHARGE: Stable. The patient is calm and cooperative. He is showing no signs or symptoms of alcohol withdrawal on the date of discharge. He is calm, cooperative and agreeable to following up with intensive inpatient substance abuse treatment. For this reason, he is being transferred to the [facility] which is in [place], [place]. The patient denies any suicidal, homicidal thoughts or thoughts of harming himself, and he seems eager to get sober. MENTAL STATUS EXAM: On discharge, the patient is a middle-aged white male, he is clean and well groomed. He is somewhat feminine, wearing rip jeans, stylish , somewhat ostentatious clothing. Speech has normal rate, tone, and volume. Mood appears to be euthymic with a full affect. Thought process is linear and goal directed. Thought content is significant for his desire to get into a rehab program. He is denying suicidal or homicidal ideations. He denies auditory or visual hallucinations. Insight and judgment appears to be fair given his willingness to go to rehab at this time. Cognitively, he is awake and alert with what appears to be an average intellect. DISCHARGE INSTRUCTIONS: To the patient are as follows: A. Medications: He is takin. Propranolol 30 mg p.o. b.i.d. 2. The patient also takes citalopram 20 mg p.o. daily. B. Diet: Regular. C. Activities: As tolerated. The patient is a smoker, but he is agreeable to continue nicotine replacement therapy for the time being. D. Followup care: The patient is a direct transfer to the [facility] in [place], [place]. HOSPITAL COURSE: Part-A: Reason for admission: The patient is a 36-year-old homosexual white male with a history of severe alcoholism, who was just discharged from our service on , 03/23/17, who now returns in the company of his father complaining of suicidal ideations and having relapsed very quickly on alcohol. I asked the patient what had happened between his discharge and the date of admission and he indicated that when he left the hospital he almost immediately went out to a liquor store buying large quantities of alcohol and consuming them. He states that once he started, he could not stop. He realized after the fact, it was a mistake not going to rehab facility and at this time he is endorsing a need for substance abuse inpatient rehab. The patient admitted to feelings of alcohol withdrawal such as shakiness and diaphoresis. He indicated that he did not followup with [facility] after discharge, but he was willing to come in to the hospital on a voluntary basis. He states that his relationship with his was worse than ever and he did not feel that he could be safe to discharge back to the community. Part-B: Psychiatric treatment rendered: The patient was admitted to the [facility] where he was placed on q.30-minute checks for his own safety. We resumed his citalopram at the dose of 40 mg p.o., daily and propranolol at the dose of 30 mg p.o. b.i.d. He was placed on the WAM protocol in order to prevent withdrawal. At this time, he is no longer showing evidence of withdrawal symptoms and we feel that he is appropriate for transfer to the rehab setting. The patient is calm and future oriented and he is looking forward to rehab at this time. He continues to deny suicidal or homicidal thoughts. [id number]/[facility] #: [id number] DARLENE
[2017-02-10] MEDS: Nicotine Patch Removal NOTE PATCH OFF SCH (21:27)
[2017-02-11] MEDS: Propranolol TAB* 20 MG PO SCH ×2 (09:08→22:18)
[2017-02-11] MEDS: Folic Acid TAB* 1 MG DAILY PO SCH (09:09)
[2017-02-11] MEDS: Thiamine TAB* 100 MG TAB DAILY (@ T+1) PO SCH (09:09)
[2017-02-11] MEDS: Nicotine PATCH 14 MG/24 HR* PATCH TRANSDERM SCH (09:09)
[2017-02-11] MEDS: Vitamin THERAPEUTIC TAB PO SCH (09:09)
[2017-02-11] MEDS: Citalopram TAB* 40 MG PO SCH (09:09)
[2017-02-11] MEDS: Nicotine Inhaler* 10 MG AMP INH PRN ×5 (09:13→21:18)
[2017-02-11] MEDS: Nicotine GUM* 2 MG PO PRN ×5 (09:13→21:18)
[2017-02-11] MEDS: Acetaminophen TAB* 325 MG PO PRN (15:26)
--- NOTE | 2017-02-11 16:39 | PN ---
Subjective - Subjective Subjective: Today, Keo reports that he has been experiencing increased anxiety since he has not had his Ativan. He reports that he is experiencing racing thoughts, sweaty palms, and at times, shortness of breath. He also states that his skin feels like it is "crawling." He is also concerned that his blood pressure is increased. He reports that his mood is "OK"- as is sleep. He is reporting poor appetite. Objective - Appearance Dysmorphic Features: No Hygiene: Normal Grooming: Well Kept - Behavior Psychomotor Activities: Normal Exhibits Abnormal Movement: No - Attitude and Relatedness Attitude and Relatedness: Cooperative Eye Contact: Good - Speech Quality: Unpressured Latencies: Normal Quantity: Appropriate - Mood Patient's Decription of Mood: "Okay" - Affect Observed Affect: Non-labile - Thought Process Patient's Thought Process: Coherent Thought Content: No Passive Wish, No Suicidal Planning, No Homicidal Ideation, No Paranoid Ideation - Sensorium Experiencing Hallucinations: No, Sensorium is Clear Type of Hallucinations: Visual: No, Auditory: No, Command: No - Level of Consciousness Level of Consciousness: Alert Orientation: No Intact, No Orientated to Time, No Orientated to Place, No Orientated to Person - Impulse Control Impulse Control: Intact - Insight and Judgement Insight and Judgement: Fair Assessment - Assessment Inpatient DSM-IV Dx: 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 Plan - Plan Treatment Plan: Name: KEO GUZMAN Birthdate: 1980 [id number] Medications: Current Medications Acetaminophen (Tylenol Tab*) 650 mg PO Q4H PRN PRN Reason: for pain; or Temp >101 F Last Admin: 02/11/17 15:26 Dose: 650 mg Citalopram Hydrobromide (Celexa Tab*) 40 mg PO DAILY [facility] Last Admin: 02/11/17 09:09 Dose: 40 mg Device (Nicotine Mouth Piece*) 1 each INH .[place] [facility] Folic Acid (Folvite Tab*) 1 mg PO DAILY [facility] Last Admin: 02/11/17 09:09 Dose: 1 mg Hydroxyzine HCl (Atarax Tab*) 50 mg PO Q6H PRN PRN Reason: ANXIETY Lorazepam (Ativan Tab(*)) 0 - 6 mg PO .PER [place] [facility] PRN Reason: Protocol Last Admin: 02/10/17 14:04 Dose: 2 mg Multivitamins (Theragran Tab*) 1 tab PO DAILY [facility] Last Admin: 02/11/17 09:09 Dose: 1 tab Nicotine (Nicotine Inhaler*) 10 mg INH Q2H PRN PRN Reason: CRAVING Last Admin: 02/11/17 15:26 Dose: 10 mg Nicotine (Nicotine Patch 14 Mg/24 Hr*) 1 patch TRANSDERM DAILY [facility] Last Admin: 02/11/17 09:09 Dose: 1 patch Nicotine Polacrilex (Nicotine Gum*) 2 mg PO Q2H PRN PRN Reason: CRAVING Last Admin: 02/11/17 15:26 Dose: 2 mg Pharmacy Profile Note (Nicotine Patch Removal Note*) 1 note PATCH OFF 2100 [facility] Last Admin: 02/10/17 21:27 Dose: Not Given Propranolol HCl (Inderal Tab*) 30 mg PO BID [facility] Last Admin: 02/11/17 09:08 Dose: 30 mg Thiamine HCl (Vitamin B-1 Tab*) 100 mg PO DAILY [facility] Last Admin: 02/11/17 09:09 Dose: 100 mg
[2017-02-11] MEDS: hydrOXYzine HCL TAB* 50 MG PO PRN (18:06)
[2017-02-11] MEDS: Nicotine Patch Removal NOTE PATCH OFF SCH (22:17)
[2017-02-12] MEDS: Vitamin THERAPEUTIC TAB PO SCH (07:58)
[2017-02-12] MEDS: Thiamine TAB* 100 MG TAB DAILY (@ T+1) PO SCH (07:58)
[2017-02-12] MEDS: Folic Acid TAB* 1 MG DAILY PO SCH (07:58)
[2017-02-12] MEDS: Nicotine GUM* 2 MG PO PRN ×4 (07:59→17:51)
[2017-02-12] MEDS: Propranolol TAB* 20 MG PO SCH ×2 (07:59→22:05)
[2017-02-12] MEDS: Nicotine Inhaler* 10 MG AMP INH PRN ×5 (07:59→20:10)
[2017-02-12] MEDS: Nicotine PATCH 14 MG/24 HR* PATCH TRANSDERM SCH (07:59)
[2017-02-12] MEDS: hydrOXYzine HCL TAB* 50 MG PO PRN ×3 (07:59→20:10)
[2017-02-12] MEDS: Citalopram TAB* 40 MG PO SCH (07:59)
[2017-02-12] MEDS: Nicotine Patch Removal NOTE PATCH OFF SCH (22:04)
[2017-02-13] MEDS: Propranolol TAB* 20 MG PO SCH ×2 (09:14→22:48)
[2017-02-13] MEDS: Vitamin THERAPEUTIC TAB PO SCH (09:14)
[2017-02-13] MEDS: Thiamine TAB* 100 MG TAB DAILY (@ T+1) PO SCH (09:15)
[2017-02-13] MEDS: Citalopram TAB* 40 MG PO SCH (09:15)
[2017-02-13] MEDS: Nicotine PATCH 14 MG/24 HR* PATCH TRANSDERM SCH (09:16)
[2017-02-13] MEDS: Folic Acid TAB* 1 MG DAILY PO SCH (09:16)
[2017-02-13] MEDS: Nicotine GUM* 2 MG PO PRN ×4 (09:17→22:50)
[2017-02-13] MEDS: Nicotine Inhaler* 10 MG AMP INH PRN ×4 (09:17→20:40)
[2017-02-13] MEDS: hydrOXYzine HCL TAB* 50 MG PO PRN (12:05)
--- NOTE | 2017-02-13 12:21 | PN ---
Subjective - Subjective Service Type: 76878 Hosp care 15 min low complexity Subjective: Keo says he turned down [facility] for rehab because he did not feel safe going to that program. He says he would feel safe going to [facility]. He denies any active SI or distressing mood symptoms. He requests a sleeping aid and Ensure. Objective - Appearance Appearance: Healthy Appearing Dysmorphic Features: No Hygiene: Normal Grooming: Fairly Well Kept - Behavior Psychomotor Activities: Normal Exhibits Abnormal Movement: No - Attitude and Relatedness Attitude and Relatedness: Cooperative Eye Contact: Good - Speech Quality: Unpressured Latencies: Normal Quantity: Appropriate - Mood Patient's Decription of Mood: "Anxious" - Affect Observed Affect: Tense Affect Consistent with: Dysphoria - mild - Thought Process Patient's Thought Process: Coherent, Goal Directed Thought Content: No Passive Wish, No Suicidal Planning, No Homicidal Ideation, No Paranoid Ideation - Sensorium Experiencing Hallucinations: No, Sensorium is Clear Type of Hallucinations: Visual: No, Auditory: No, Command: No - Level of Consciousness Level of Consciousness: Alert Orientation: Yes Intact, Yes Orientated to Time, Yes Orientated to Place, Yes Orientated to Person - Impulse Control Impulse Control: Intact - Insight and Judgement Insight and Judgement: Fair - Group Participation Particating in Group Activities: Yes Group Participation Comments: but declines most Assessment - Assessment Merits Inpatient Hospitalization: For Stabilization, Consolidate Improvements, For Discharge Planning Inpatient DSM-IV Dx: 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 He denies dangerous intent or plan or psychosis or other concerning psychiatric symptoms. He voices commitment to rehab, and says he turned down a program in [place] because he felt unsafe going there, though he did not explain why. He is now agreeable to placement in rehab at [facility]. Plan - Plan Treatment Plan: Name: KEO GUZMAN Birthdate: 1980 [id number] Continue current meds, adding Remeron 15 qHS prn insomnia. Monitor MS and safety. Encourage groups and milieu. Add Ensure with lunch and dinner. Refer to rehab. Medications: Current Medications Acetaminophen (Tylenol Tab*) 650 mg PO Q4H PRN PRN Reason: for pain; or Temp >101 F Last Admin: 02/11/17 15:26 Dose: 650 mg Citalopram Hydrobromide (Celexa Tab*) 40 mg PO DAILY [facility] Last Admin: 02/13/17 09:15 Dose: 40 mg Device (Nicotine Mouth Piece*) 1 each INH .[facility] Folic Acid (Folvite Tab*) 1 mg PO DAILY [facility] Last Admin: 02/13/17 09:16 Dose: 1 mg Hydroxyzine HCl (Atarax Tab*) 50 mg PO Q6H PRN PRN Reason: ANXIETY Last Admin: 02/13/17 12:05 Dose: 50 mg Lorazepam (Ativan Tab(*)) 0 - 6 mg [facility] PRN Reason: Protocol Last Admin: 02/10/17 14:04 Dose: 2 mg Multivitamins (Theragran Tab*) 1 tab PO DAILY [facility] Last Admin: 02/13/17 09:14 Dose: 1 tab Nicotine (Nicotine Inhaler*) 10 mg INH Q2H PRN PRN Reason: CRAVING Last Admin: 02/13/17 12:05 Dose: 10 mg Nicotine (Nicotine Patch 14 Mg/24 Hr*) 1 patch TRANSDERM DAILY [facility] Last Admin: 02/13/17 09:16 Dose: 1 patch Nicotine Polacrilex (Nicotine Gum*) 2 mg PO Q2H PRN PRN Reason: CRAVING Last Admin: 02/13/17 12:05 Dose: 2 mg Pharmacy Profile Note (Nicotine Patch Removal Note*) 1 note PATCH OFF 2100 [facility] Last Admin: 02/12/17 22:04 Dose: 1 note Propranolol HCl (Inderal Tab*) 30 mg PO BID [facility] Last Admin: 02/13/17 09:14 Dose: 30 mg Thiamine HCl (Vitamin B-1 Tab*) 100 mg PO DAILY [facility] Last Admin: 02/13/17 09:15 Dose: 100 mg - Discharge Plan Discharge Plan: Drug/Alcohol Rehab
[2017-02-13] MEDS: Acetaminophen TAB* 325 MG PO PRN (13:01)
--- NOTE | 2017-02-13 13:22 | PN ---
MHU: Group Therapy Note - Service Type Service Type: 03715 Group Psychotherapy - Cognitive Behavioral Group Therapy ( CBT):Patient was attentive and participatory in CBT programming this morning, and remained in good behavioral control. Patient expressed positive insights regarding relevant treatment interventions and goals.
[2017-02-13] MEDS: Nicotine Patch Removal NOTE PATCH OFF SCH (20:39)
[2017-02-13] MEDS ORDERED: Mirtazapine TAB* 15 MG PO ONE (23:00)
[2017-02-14] MEDS: Acetaminophen TAB* 325 MG PO PRN (00:24)
[2017-02-14] MEDS: hydrOXYzine HCL TAB* 50 MG PO PRN ×2 (00:24→13:14)
[2017-02-14] MEDS: Propranolol TAB* 20 MG PO SCH ×2 (08:55→21:39)
[2017-02-14] MEDS: Thiamine TAB* 100 MG TAB DAILY (@ T+1) PO SCH (08:55)
[2017-02-14] MEDS: Citalopram TAB* 40 MG PO SCH (08:56)
[2017-02-14] MEDS: Folic Acid TAB* 1 MG DAILY PO SCH (08:56)
[2017-02-14] MEDS: Nicotine PATCH 14 MG/24 HR* PATCH TRANSDERM SCH (08:57)
[2017-02-14] MEDS: Nicotine GUM* 2 MG PO PRN ×5 (09:06→20:01)
[2017-02-14] MEDS: Nicotine Inhaler* 10 MG AMP INH PRN ×5 (09:06→20:01)
[2017-02-14] MEDS ORDERED: Mouth Piece, Nicotine* 1 EACH CARTRIDGE ONE (09:06)
[2017-02-14] MEDS: Vitamin THERAPEUTIC TAB PO SCH (09:15)
--- NOTE | 2017-02-14 11:47 | PN ---
MHU: Group Therapy Note - Service Type Service Type: 54311 Group Psychotherapy - Cognitive Behavioral Group Therapy ( CBT):Patient was attentive and participatory in CBT programming this morning, and remained in good behavioral control. Patient expressed positive insights regarding relevant treatment interventions and goals.
[2017-02-14] MEDS ORDERED: QUEtiapine TAB* 25 MG PO PRN (15:13)
--- NOTE | 2017-02-14 15:18 | PN ---
Subjective - Subjective Service Type: 93426 Hosp care 15 min low complexity Subjective: Patient complains of insomnia. States that mirtazapine did not work. States that past use of trazodone has resulted in restless legs. Patient denies SI or HI. Objective - Appearance Appearance: Well Developed/Nourished Dysmorphic Features: No Hygiene: Normal Grooming: Well Kept - Behavior Psychomotor Activities: Normal Exhibits Abnormal Movement: No - Attitude and Relatedness Attitude and Relatedness: Cooperative Eye Contact: Good - Speech Quality: Unpressured Latencies: Normal Quantity: Copious - Mood Patient's Decription of Mood: "Good" - Affect Observed Affect: Good Affect Consistent with: Euthymia - Thought Process Patient's Thought Process: Coherent Thought Content: No Passive Wish, No Suicidal Planning, No Homicidal Ideation, No Paranoid Ideation - Sensorium Experiencing Hallucinations: No, Sensorium is Clear Type of Hallucinations: Visual: No, Auditory: No, Command: No - Level of Consciousness Level of Consciousness: Alert Orientation: Yes Intact, Yes Orientated to Time, Yes Orientated to Place, Yes Orientated to Person - Impulse Control Impulse Control: Intact - Insight and Judgement Insight and Judgement: Good - Group Participation Particating in Group Activities: No - Medication Management Medication Management Adherence: Yes Assessment - Assessment Merits Inpatient Hospitalization: Pending Safe DC Plan Inpatient DSM-IV Dx: 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 , homosexual white male with a history of chronic alcohol dependence readmitted following a recent d/c from the [facility] on [facility], who now returns following relapse on alcohol and endorsing SI with plan to drink himself to . Plan - Plan Treatment Plan: Name: KEO GUZMAN Birthdate: 1980 [id number] He seems to be doing well and pending transfer to rehab tomorrow. We will start quetiapine 50mg PO qhs prn for insomnia. He is taking citalopram 40mg PO qday and propranolol 30mg PO BID. Transfer tomorrow (02/15) to [facility]. Continued Medication Management: Continue Outpt Medication Medications: Current Medications Acetaminophen (Tylenol Tab*) 650 mg PO Q4H PRN PRN Reason: for pain; or Temp >101 F Last Admin: 02/14/17 00:24 Dose: 650 mg Citalopram Hydrobromide (Celexa Tab*) 40 mg PO DAILY [facility] Last Admin: 02/14/17 08:56 Dose: 40 mg Device (Nicotine Mouth Piece*) 1 each INH .[facility] Folic Acid (Folvite Tab*) 1 mg PO DAILY [facility] Last Admin: 02/14/17 08:56 Dose: 1 mg Hydroxyzine HCl (Atarax Tab*) 50 mg PO Q6H PRN PRN Reason: ANXIETY Last Admin: 02/14/17 13:14 Dose: 50 mg Multivitamins (Theragran Tab*) 1 tab PO DAILY [facility] Last Admin: 02/14/17 09:15 Dose: 1 tab Nicotine (Nicotine Inhaler*) 10 mg INH Q2H PRN PRN Reason: CRAVING Last Admin: 02/14/17 15:11 Dose: 10 mg Nicotine (Nicotine Patch 14 Mg/24 Hr*) 1 patch TRANSDERM DAILY [facility] Last Admin: 02/14/17 08:57 Dose: 1 patch Nicotine Polacrilex (Nicotine Gum*) 2 mg PO Q2H PRN PRN Reason: CRAVING Last Admin: 02/14/17 15:12 Dose: 2 mg Pharmacy Profile Note (Nicotine Patch Removal Note*) 1 note PATCH OFF 2100 [facility] Last Admin: 02/13/17 20:39 Dose: 1 note Propranolol HCl (Inderal Tab*) 30 mg PO BID [facility] Last Admin: 02/14/17 08:55 Dose: 30 mg Quetiapine Fumarate (Seroquel Tab*) 50 mg PO BEDTIME PRN PRN Reason: INSOMNIA Thiamine HCl (Vitamin B-1 Tab*) 100 mg PO DAILY [facility] Last Admin: 02/14/17 08:55 Dose: 100 mg - Discharge Plan Discharge Plan: Drug/Alcohol Rehab
[2017-02-14] MEDS: Nicotine Patch Removal NOTE PATCH OFF SCH (21:36)
[2017-02-15 08:08] VITALS: BP 111/65
[2017-02-15] MEDS: Propranolol TAB* 20 MG PO SCH (08:47)
[2017-02-15] MEDS: Nicotine PATCH 14 MG/24 HR* PATCH TRANSDERM SCH (08:47)
[2017-02-15] MEDS: Thiamine TAB* 100 MG TAB DAILY (@ T+1) PO SCH (08:47)
[2017-02-15] MEDS: Vitamin THERAPEUTIC TAB PO SCH (08:48)
[2017-02-15] MEDS: Folic Acid TAB* 1 MG DAILY PO SCH (08:48)
[2017-02-15] MEDS: Citalopram TAB* 40 MG PO SCH (08:48)
[2017-02-15] MEDS: Nicotine GUM* 2 MG PO PRN (08:51)
[2017-02-15] MEDS: Nicotine Inhaler* 10 MG AMP INH PRN (08:51)
[2017-02-15] MEDS: hydrOXYzine HCL TAB* 50 MG PO PRN (10:03)
--- NOTE | 2017-02-15 10:42 | DS ---
ADDENDUM TO DISCHARGE SUMMARY DICTATED ON 02/10/2017 DATE OF ADMISSION: 02/06/2017. DATE OF DISCHARGE: 02/15/2017. HISTORY OF PRESENT ILLNESS: The patient was psychiatrically stabilized and deemed ready for transfe r to acute inpatient rehab on February 10; however, at that time he declined transfer to the [facility] in [place], [place], stating that he had heard bad things about that program and that he did not feel safe going there. On the basis of this, we cancelled his discharge and kept him on the unit. In the intervening time, we did make the following adjustment in his med ication. Due to poor sleep, he requested a trial of a medication that would help him with insomnia. We selected a trial of Quetiapine, initially at the dose of 50 mg p.o. at bedtime, but then increa sed this to 100 mg p.o. at bedtime and this can be administered on a prn basis for insomnia. Other than this, he did not show any further signs or symptoms of withdrawal. He continued to deny suicid al thoughts or behaviors and he was calm and cooperative on all routine checks. At this time, we adorno ve re-referred him, this time to the [facility] facility in [place], [place]. This program is accepta ble to the patient and he is leaving on a voluntary basis to pursue inpatient rehab at [facility]. [id number]/[facility] #: [id number]
== END 2017-02-15 10:45 | DRG 775 ==
LOC: ED 23:53 → BSU 02-06 14:47
PROVIDERS: ADMIT Psychiatry & Neurology Psychiatry; ATTEND Psychiatry & Neurology Psychiatry
PROC: HZ2ZZZZ Detoxification Services for Substance Abuse Treatment (ICD-10-PCS; principal; 2017-02-06)
DX: F10.14 Alcohol abuse with alcohol-induced mood disorder (principal); R45.851 Suicidal ideations; Y90.3 Blood alcohol level of 60-79 mg/100 ml; F41.9 Anxiety disorder, unspecified; G25.0 Essential tremor; Z79.899 Other long term (current) drug therapy; Z91.010 Allergy to peanuts; Z81.1 Family history of alcohol abuse and dependence
CPT/HCPCS: 36415; 80320; 84132; 90853; 93005; 99222; 99231; 99238; A9270-GY; G0480; J2060

== ENCOUNTER 2017-03-25 09:26 | Emergency (ER) | payer OTHER ==
[2017-03-25 09:52] VITALS: BP 150/52
--- NOTE | 2017-03-25 10:42 | UC ---
Cardiac HPI - HPI Summary HPI Summary: 36 yo male with the onset of spasmotic right lateral chest pain yesterday after completing and upper body work out hurts to twist hurts to raise right arm hurts to lay on right side hurts to take a deep breath no SOB unable to sleep much last PM due to pain - History of Current Complaint Chief Complaint: UCGeneralIllness Stated Complaint: SIDE PAIN Time Seen by Provider: 03/25/17 10:22 Hx Obtained From: Patient Onset/Duration: Sudden Onset, Lasting Hours Timing: Constant Initial Severity: Severe Current Severity: Severe Pain Intensity: 10 Chest Pain Location: Discrete at: - see image Character: Sharp/Stabbing Aggravating: Position, Movement, Deep Breaths Alleviating: Nothing Associated Signs & Symptoms: Positive: Chest Pain - Risk Factors Pulmonary Embolism Risk Factors: Negative Cardiac Risk Factors: Negative Atrial Fibrillation: Negative TAD Risk Factors: Negative - Allergy/Home Medications Allergies/Adverse Reactions: Allergies Allergy/AdvReac Type Severity Reaction Status Date / Time Peanut-containing Drug Allergy Severe Anaphylatic Verified 03/25/17 09:52 Products Shock PMH/Surg Hx/FS Hx/Imm Hx Previously Healthy: Yes Endocrine History Of: Denies: Diabetes - general medical health ok. hx addiction. recently d/c'd from [facility], Thyroid Disease Cardiovascular History Of: Denies: Cardiac Disorders, Hypertension, Pacemaker/ICD Respiratory History Of: Denies: COPD, Asthma GI/ History Of: Denies: Gastroesophageal Reflux, Ulcer, Renal Disease Neurological History Of: Reports: Seizures - r/t alcohol withdrawl Denies: CVA, Dementia Psychological History Of: Reports: Anxiety, Depression Other History Of: Negative For: Anticoagulant Therapy - Surgical History Surgical History: Yes Surgery Procedure, Year, and Place: [place] Teeth Extraction. Moles Removed - Family History Known Family History: Positive: Hypertension, Other - EtOH abuse and depression per EMR. - Social History Alcohol Use: None Alcohol Amount: approximately 15 beers/day Substance Use Type: None Substance Use Comment - Amount & Last Used: was drinking immediately before admission. He says he drinks 15 beers/day Smoking Status (MU): Current Every Day Smoker Type: Cigarettes Amount Used/How Often: 1/2 PPD Have You Smoked in the Last Year: Yes Household Exposure Type: Cigarettes - Immunization History Most Recent Influenza Vaccination: Never Most Recent Tetanus Shot: Unsure Most Recent Pneumonia Vaccination: Never Review of Systems Constitutional: Negative Skin: Negative Eyes: Negative ENT: Negative Respiratory: Negative Cardiovascular: Chest Pain Gastrointestinal: Negative Genitourinary: Negative Motor: Negative Neurovascular: Negative Musculoskeletal: Negative Neurological: Negative Psychological: Negative All Other Systems Reviewed And Are Negative: Yes Physical Exam Triage Information Reviewed: Yes Appearance: Well-Appearing, No Pain Distress, Well-Nourished Vital Signs: Initial Vital Signs Temp 97.9 F 03/25/17 09:44 Pulse 72 03/25/17 09:44 Resp 14 03/25/17 09:44 BP 150/52 03/25/17 09:44 Pulse Ox 100 03/25/17 09:44 Vital Signs Reviewed: Yes Eyes: Positive: Conjunctiva Clear ENT: Positive: Hearing grossly normal. Negative: Nasal drainage, Trismus, Muffled/hoarse voice Neck: Positive: Supple, Nontender, No Lymphadenopathy Respiratory: Positive: Lungs clear, Normal breath sounds, No respiratory distress. Negative: Chest non-tender Cardiovascular: Positive: RRR, No Murmur Abdomen Description: Positive: Nontender, No Organomegaly, Soft Bowel Sounds: Positive: Present Musculoskeletal: Positive: ROM Intact, No Edema Neurological: Positive: Alert Psychological Exam: Normal Skin Exam: Normal - Clinical Impression Provider Diagnoses: chest wall sprain/pain Discharge - Discharge Plan Condition: Stable Disposition: HOME Prescriptions: Cyclobenzaprine TAB* [Flexeril TAB*] 5 mg PO TID PRN #21 tab PRN Reason: Spasms HYDROcodone/ACETAMIN 5-325 MG* [[place] 5-325 TAB*] 1 tab PO Q4H PRN #15 tab MDD 4 PRN Reason: Pain - Severe Naproxen [Naproxen 500 MG TABS] 500 mg PO BID PRN #30 tab PRN Reason: Pain Patient Education Materials: Muscle Strain (ED), Chest Wall Pain (ED) Referrals: Bala Grady III, TEAROOM HOST/HOSTESS [Primary Care Provider] - 4 Days (if not better) Additional Instructions: ice use narcotic sparingly Images Front/Back of Body, Lg (Gila): 1 - tender here/pain with compression and rib springing
== END 2017-03-25 10:45 | disposition home or self-care (01) ==
LOC: UCEAST 09:26
DX: S29.011A Strain of muscle and tendon of front wall of thorax, initial encounter (principal); F41.9 Anxiety disorder, unspecified; F32.9 Major depressive disorder, single episode, unspecified; F17.210 Nicotine dependence, cigarettes, uncomplicated; R07.9 Chest pain, unspecified; X50.9XXA Other and unspecified overexertion or strenuous movements or postures, initial encounter; Z91.010 Allergy to peanuts
CPT/HCPCS: 99212; G0463

== ENCOUNTER 2017-08-14 17:12 | Emergency (ER) | payer MEDICAID, OTHER ==
[2017-08-14] MEDS ORDERED: NS 0.9% 1000 ML* 1,000 ML IV ONE (17:56)
[2017-08-14] MEDS ORDERED: Ketorolac INJ* 30 MG/ML 1 ML VIAL IV ONE (17:56)
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
[2017-08-14] MEDS ORDERED: Acetaminophen TAB* 325 MG PO ONE (20:48)
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
[2017-08-15] MEDS ORDERED: LORazepam TAB(*) 1 MG PO ONE (01:37)
[2017-08-15] MEDS ORDERED: LORazepam TAB(*) 1 MG ONE (01:40)
[2017-08-15 01:51] VITALS: BP 156/87
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
== END 2017-08-15 01:49 | disposition home or self-care (01) ==
LOC: ED 17:12
DX: S09.90XA Unspecified injury of head, initial encounter (principal); S62.302A Unspecified fracture of third metacarpal bone, right hand, initial encounter for closed fracture; Y04.0XXA Assault by unarmed brawl or fight, initial encounter; Y92.9 Unspecified place or not applicable; F17.210 Nicotine dependence, cigarettes, uncomplicated
CPT/HCPCS: 29125; 36415; 70450; 71250; 72125; 80320; 96360; 96374; 99283; A9270-GY; G0480; J1885

== ENCOUNTER 2017-08-15 11:03 | Inpatient (IN) | payer OTHER ==
[2017-08-15] MEDS ORDERED: Diazepam TAB(*) 5 MG PO ONE (13:42)
[2017-08-15 14:07] LABS: Hematocrit 42 % (42-52); Hemoglobin 14.2 g/dl (14.0-18.0); Mean Corpuscular HGB Conc 34 g/dl (31-36); Mean Corpuscular Hemoglobin 31 pg (27-31); Mean Corpuscular Volume 91 fL (80-94); Mean Platelet Volume 7 um3 (7.4-10.4); Red Blood Count 4.61 10^6/ul (4.0-5.4); Red Cell Distribution Width 13 % (10.5-15); White Blood Count 12.6 10^3/ul (3.5-10.8)
[2017-08-15 14:25] LABS: ALT 46 U/L (7-52); AST 75 U/L (13-39); Albumin 4.3 g/dL (3.2-5.2); Alkaline Phosphatase 69 U/L (34-104); Anion Gap 9 mmol/L (2-11); BUN/Creatinine Ratio 15.5 (8-20); Blood Urea Nitrogen 11 mg/dL (6-24); CO2 Carbon Dioxide 27 mmol/L (22-32); Calcium 9.2 mg/dL (8.6-10.3); Chloride 98 mmol/L (101-111); EGFR African American 161.4 (>60); EGFR Non-African American 125.5 (>60); Glucose 90 mg/dL (70-100); Sodium 134 mmol/L (133-145); Total Protein 7.3 g/dL (6.4-8.9)
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
[2017-08-15 14:45] LABS: Acetaminophen < 15 mcg/mL; Alcohol < 10 mg/dL (<10); Salicylate < 2.50 mg/dL (<30)
[2017-08-15] MEDS ORDERED: Acetaminophen TAB* 325 MG PO PRN (14:59)
[2017-08-15] MEDS ORDERED: Thiamine IV* 100 MG/ML 2 ML VIAL IM ONE (15:00)
[2017-08-15 15:03] LABS: TSH (Thyroid Stimulating Horm) 0.28 mcIU/mL (0.34-5.60)
[2017-08-15 16:02] LABS: Free T4 0.77 ng/dL (0.61-1.12)
[2017-08-15] MEDS: LORazepam TAB(*) 1 MG PO SCH ×3 (16:35→23:08)
[2017-08-15] MEDS: Morphine INJ* 2 MG/ML 1 ML SYRINGE (TWO MG - NEW SYRINGE VERSION) IV PRN (20:06)
[2017-08-15] MEDS: Propranolol TAB* 10 MG PO SCH (20:19)
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
[2017-08-16] MEDS: Morphine INJ* 2 MG/ML 1 ML SYRINGE (TWO MG - NEW SYRINGE VERSION) IV PRN ×3 (00:19→15:10)
[2017-08-16 02:50] LABS: Benzodiazepine Urine Screen Presumptive Positive (None Detect)
[2017-08-16] MEDS: LORazepam TAB(*) 1 MG PO SCH ×3 (06:30→18:26)
[2017-08-16] MEDS: Thiamine TAB* 100 MG TAB PO SCH (08:23)
[2017-08-16] MEDS: Folic Acid TAB* 1 MG PO SCH (08:23)
[2017-08-16] MEDS: Propranolol TAB* 10 MG PO SCH ×2 (08:23→22:27)
[2017-08-16] MEDS: Citalopram TAB* 40 MG PO SCH (08:23)
[2017-08-16] MEDS: Multivitamins/Minerals TAB PO SCH (08:23)
[2017-08-16] MEDS: Nicotine Inhaler* 10 MG AMP INH PRN ×3 (10:58→18:27)
[2017-08-16] MEDS ORDERED: Mouth Piece, Nicotine* 1 EACH CARTRIDGE INH ONE (11:00)
[2017-08-16] MEDS: Naproxen TAB* 250 MG PO PRN (15:11)
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
[2017-08-17] MEDS: Morphine INJ* 2 MG/ML 1 ML SYRINGE (TWO MG - NEW SYRINGE VERSION) IV PRN ×5 (02:32→22:48)
[2017-08-17] MEDS: LORazepam TAB(*) 1 MG PO SCH ×6 (02:32→18:45)
[2017-08-17] MEDS: Multivitamins/Minerals TAB PO SCH (08:53)
[2017-08-17] MEDS: Propranolol TAB* 10 MG PO SCH ×2 (08:53→21:11)
[2017-08-17] MEDS: Folic Acid TAB* 1 MG PO SCH (08:54)
[2017-08-17] MEDS: Thiamine TAB* 100 MG TAB PO SCH (08:54)
[2017-08-17] MEDS: Citalopram TAB* 40 MG PO SCH (08:54)
[2017-08-17] MEDS: Nicotine Inhaler* 10 MG AMP INH PRN ×6 (10:20→23:45)
[2017-08-17] MEDS: oxyCODONE TAB* 5 MG TAB PO PRN ×3 (11:25→20:19)
--- NOTE | 2017-08-17 15:32 | PN ---
Subjective Date of Service: 08/17/17 Interval History: Still feeling anxious, tremulous. Complains of soreness in his right hand. No hallucinations, auditory, visual, or tactile. No headache, no palpitations, no nausea or vomiting. Family History: Unchanged from Admission Social History: Unchanged from Admission Past Medical History: Unchanged from Admission Objective Active Medications: Citalopram Hydrobromide (Celexa Tab*) 40 mg PO DAILY [facility] Last Admin: 08/17/17 08:54 Dose: 40 mg Folic Acid (Folvite Tab*) 1 mg PO DAILY [facility] Last Admin: 08/17/17 08:54 Dose: 1 mg Lorazepam (Ativan Tab(*)) 0 - 6 mg PO .PER [facility] PROTOCOL [facility] PRN Reason: Protocol Last Admin: 08/17/17 13:01 Dose: 3 mg Lorazepam (Ativan Tab(*)) 2 mg PO Q12H [facility] PRN Reason: Taper Stop: 08/19/17 06:38 Last Admin: 08/17/17 02:32 Dose: 2 mg Morphine Sulfate (Morphine Inj (Syringe)*) 2 mg IV Q4H PRN PRN Reason: PAIN Last Admin: 08/17/17 13:00 Dose: 2 mg Multivitamins/Minerals (Theragran/Minerals Tab*) 1 tab PO DAILY [facility] Last Admin: 08/17/17 08:53 Dose: 1 tab Naproxen (Naprosyn Tab*) 500 mg PO BID WITH MEALS PRN PRN Reason: PAIN Last Admin: 08/16/17 15:11 Dose: 500 mg Nicotine (Nicotine Inhaler*) 10 mg INH Q2H PRN PRN Reason: CRAVING Last Admin: 08/17/17 13:02 Dose: 10 mg Oxycodone HCl (Roxycodone Tab*) 10 mg PO Q4H PRN PRN Reason: PAIN Last Admin: 08/17/17 11:25 Dose: 10 mg Propranolol HCl (Inderal Tab*) 30 mg PO BID [facility] Last Admin: 08/17/17 08:53 Dose: 30 mg Thiamine HCl (Vitamin B-1 Tab*) 100 mg PO DAILY [facility] Last Admin: 08/17/17 08:54 Dose: 100 mg Vital Signs 08/16/17 08/16/17 08/16/17 20:00 20:18 20:26 Temperature 98.1 F Pulse Rate 68 Respiratory 12 16 12 Rate Blood Pressure 144/86 (mmHg) O2 Sat by Pulse 96 Oximetry 08/16/17 08/17/17 08/17/17 22:29 00:24 02:32 Temperature 98.2 F 98.1 F Pulse Rate 60 50 Respiratory 17 16 12 Rate Blood Pressure 142/79 130/59 (mmHg) O2 Sat by Pulse 98 95 Oximetry 08/17/17 08/17/17 08/17/17 02:36 04:39 06:43 Temperature 97.9 F 97.4 F 97.9 F Pulse Rate 50 50 94 Respiratory 16 16 16 Rate Blood Pressure 114/73 122/71 120/71 (mmHg) O2 Sat by Pulse 96 99 99 Oximetry 08/17/17 08/17/17 08/17/17 08:15 08:40 08:57 Temperature 98.0 F Pulse Rate 48 Respiratory 18 16 17 Rate Blood Pressure 111/70 (mmHg) O2 Sat by Pulse 98 Oximetry 08/17/17 08/17/17 08/17/17 09:57 10:35 11:13 Temperature 97.6 F Pulse Rate 43 Respiratory 16 18 19 Rate Blood Pressure 169/91 (mmHg) O2 Sat by Pulse 100 Oximetry 08/17/17 08/17/17 08/17/17 11:25 12:54 13:00 Temperature Pulse Rate 61 Respiratory 19 20 20 Rate Blood Pressure 153/96 (mmHg) O2 Sat by Pulse Oximetry 08/17/17 08/17/17 08/17/17 13:01 13:25 14:00 Temperature Pulse Rate Respiratory 20 17 17 Rate Blood Pressure (mmHg) O2 Sat by Pulse Oximetry 08/17/17 14:23 Temperature 97.8 F Pulse Rate 60 Respiratory 18 Rate Blood Pressure 158/98 (mmHg) O2 Sat by Pulse Oximetry Oxygen Devices in Use Now: None Appearance: anxious, no distress, alert and answers appropriately Eyes: No Scleral Icterus, PERRLA Ears/Nose/Mouth/Throat: NL Teeth, Lips, Gums, Clear Oropharnyx, - - left eye echymosis Neck: NL Appearance and Movements; NL JVP, Trachea Midline Respiratory: Symmetrical Chest Expansion and Respiratory Effort, Clear to Auscultation Cardiovascular: NL Sounds; No Murmurs; No JVD, RRR Abdominal: NL Sounds; No Tenderness; No Distention, No Hepatosplenomegaly Lymphatic: No Cervical Adenopathy Extremities: No Edema, - - right arm with soft cast Skin: No Rash or Ulcers Neurological: Alert and Oriented x 3 Result Diagrams: 08/15/17 13:56 08/15/17 13:56 Additional Lab and Data: Lab Results 08/15/17 Range/Units 13:56 WBC 12.6 H (3.5-10.8) 10^3/ul RBC 4.61 (4.0-5.4) 10^6/ul Hgb 14.2 (14.0-18.0) g/dl Hct 42 (42-52) % MCV 91 (80-94) fL MCH 31 (27-31) pg MCHC 34 (31-36) g/dl RDW 13 (10.5-15) % Plt Count 205 (150-450) 10^3/ul MPV 7 L (7.4-10.4) um3 Neut % (Auto) 81.2 (38-83) % Lymph % (Auto) 11.0 L (25-47) % [place] % (Auto) 7.0 (1-9) % Eos % (Auto) 0.2 (0-6) % Baso % (Auto) 0.6 (0-2) % Absolute Neuts (auto) 10.2 H (1.5-7.7) 10^3/ul Absolute Lymphs (auto) 1.4 (1.0-4.8) 10^3/ul Absolute Monos (auto) 0.9 H (0-0.8) 10^3/ul Absolute Eos (auto) 0 (0-0.6) 10^3/ul Absolute Basos (auto) 0.1 (0-0.2) 10^3/ul Absolute Nucleated RBC 0 10^3/ul Nucleated RBC % 0 Assess/Plan/Problems-Billing Assessment: 1. Acute Alcohol Withdrawal On [facility] protocol; less anxious this morning, less tachycardic, and tactile hallucinations have resolved. No history of DTs but did have a withdrawal seizure before. 2. ETOH dependence He is involved in AA. He agrees to inpatient rehab upon discharge. 3. R 3rd digit fracture braced, continue pain control prn. Was supposed to see orthopedics today; case discussed with ortho, asked them to see him while he is inpatient since he will be going to inpatient rehab from here. 4. depression, continue celexa
[2017-08-17] MEDS: CMCS Melatonin (NF) 3 MG TAB PO PRN (23:45)
[2017-08-18] MEDS: oxyCODONE TAB* 5 MG TAB PO PRN ×5 (02:30→22:00)
[2017-08-18] MEDS: LORazepam TAB(*) 1 MG PO SCH ×3 (02:30→17:38)
[2017-08-18] MEDS: Propranolol TAB* 10 MG PO SCH ×2 (08:40→20:53)
[2017-08-18] MEDS: Citalopram TAB* 40 MG PO SCH (08:41)
[2017-08-18] MEDS: Folic Acid TAB* 1 MG PO SCH (08:41)
[2017-08-18] MEDS: Thiamine TAB* 100 MG TAB PO SCH (08:41)
[2017-08-18] MEDS: Multivitamins/Minerals TAB PO SCH (08:41)
[2017-08-18] MEDS: Nicotine Inhaler* 10 MG AMP INH PRN ×3 (13:18→21:04)
[2017-08-18] MEDS: Morphine INJ* 2 MG/ML 1 ML SYRINGE (TWO MG - NEW SYRINGE VERSION) IV PRN ×3 (13:32→23:13)
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
[2017-08-18] MEDS: Naproxen TAB* 250 MG PO PRN (21:03)
[2017-08-18] MEDS: CMCS Melatonin (NF) 3 MG TAB PO PRN (22:05)
[2017-08-19] MEDS: oxyCODONE TAB* 5 MG TAB PO PRN ×4 (06:15→20:35)
[2017-08-19] MEDS: LORazepam TAB(*) 1 MG PO SCH (06:16)
[2017-08-19] MEDS ORDERED: Ondansetron ODT TAB* 4 MG PO PRN (09:26)
[2017-08-19] MEDS ORDERED: Ondansetron ODT TAB* 4 MG ONE (09:42)
[2017-08-19] MEDS: Morphine INJ* 2 MG/ML 1 ML SYRINGE (TWO MG - NEW SYRINGE VERSION) IV PRN ×4 (09:45→21:55)
[2017-08-19] MEDS: Multivitamins/Minerals TAB PO SCH (09:49)
[2017-08-19] MEDS: Citalopram TAB* 40 MG PO SCH (09:49)
[2017-08-19] MEDS: Thiamine TAB* 100 MG TAB PO SCH (09:49)
[2017-08-19] MEDS: Propranolol TAB* 10 MG PO SCH (09:49)
[2017-08-19] MEDS: Folic Acid TAB* 1 MG PO SCH (09:49)
[2017-08-19] MEDS: Nicotine Inhaler* 10 MG AMP INH PRN ×4 (10:07→21:55)
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
[2017-08-19] MEDS: Naproxen TAB* 250 MG PO PRN (21:50)
[2017-08-20] MEDS: oxyCODONE TAB* 5 MG TAB PO PRN ×2 (00:20→11:45)
[2017-08-20] MEDS: Propranolol TAB* 10 MG PO SCH ×2 (00:22→09:05)
[2017-08-20] MEDS: CMCS Melatonin (NF) 3 MG TAB PO PRN (00:24)
[2017-08-20] MEDS: Naproxen TAB* 250 MG PO PRN ×2 (00:25→09:05)
[2017-08-20] MEDS: Nicotine Inhaler* 10 MG AMP INH PRN ×2 (00:26→11:45)
[2017-08-20] MEDS: Morphine INJ* 2 MG/ML 1 ML SYRINGE (TWO MG - NEW SYRINGE VERSION) IV PRN ×2 (01:47→09:06)
[2017-08-20] MEDS: Multivitamins/Minerals TAB PO SCH (09:05)
[2017-08-20] MEDS: Folic Acid TAB* 1 MG PO SCH (09:05)
[2017-08-20] MEDS: Thiamine TAB* 100 MG TAB PO SCH (09:05)
[2017-08-20] MEDS: Citalopram TAB* 40 MG PO SCH (09:05)
[2017-08-20 12:10] VITALS: BP 124/84
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
== END 2017-08-20 13:00 | DRG 775 ==
LOC: ED 11:03 → MED 14:54 → OBSVTOIN 08-16 19:31
PROVIDERS: ADMIT Internal Medicine; ATTEND Internal Medicine
DX: F10.239 Alcohol dependence with withdrawal, unspecified (principal); F32.9 Major depressive disorder, single episode, unspecified; F10.229 Alcohol dependence with intoxication, unspecified; S62.302A Unspecified fracture of third metacarpal bone, right hand, initial encounter for closed fracture; W19.XXXA Unspecified fall, initial encounter; Y92.9 Unspecified place or not applicable; Y90.8 Blood alcohol level of 240 mg/100 ml or more; Z79.899 Other long term (current) drug therapy; Z91.010 Allergy to peanuts; F17.210 Nicotine dependence, cigarettes, uncomplicated
CPT/HCPCS: 36415; 80053; 80307; 80320; 80329; 84439; 84443; 85025; A9270-GY; G0378; G0480; J2270; J3411

== ENCOUNTER 2017-08-20 08:54 | Inpatient (IN) | payer MEDICAID, OTHER ==
[2017-08-20] MEDS ORDERED: Al Hydrox/Mg Hydrox/Simet LIQ* 30 ML UDC PO PRN (13:51)
[2017-08-20] MEDS ORDERED: Acetaminophen TAB* 325 MG PO PRN (13:51)
[2017-08-20] MEDS: Naproxen TAB* 250 MG PO PRN (14:15)
[2017-08-20] MEDS: Nicotine GUM* 2 MG PO PRN ×2 (16:18→20:01)
[2017-08-20] MEDS: Propranolol TAB* 10 MG PO SCH (20:01)
[2017-08-20] MEDS: Nicotine Patch Removal NOTE FOLLOW UP SCH (20:02)
[2017-08-20] MEDS: QUEtiapine TAB* 100 MG PO SCH (21:42)
[2017-08-21] MEDS: Citalopram TAB* 40 MG PO SCH (10:33)
[2017-08-21] MEDS: Naproxen TAB* 250 MG PO PRN (10:33)
[2017-08-21] MEDS: Propranolol TAB* 10 MG PO SCH ×2 (10:34→21:53)
[2017-08-21] MEDS: Vitamin THERAPEUTIC TAB PO SCH (10:38)
[2017-08-21] MEDS: Nicotine PATCH 7 MG/24 HR* PATCH TRANSDERM SCH (10:38)
[2017-08-21] MEDS: Nicotine GUM* 2 MG PO PRN ×4 (14:02→21:54)
[2017-08-21] MEDS: HYDROcodone/ACETAMIN 5-325 MG* 1 TAB PO PRN ×2 (15:43→21:52)
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
[2017-08-21] MEDS: Nicotine Inhaler* 10 MG AMP Q2H PRN CRAVING INH ×3 (16:41→22:33)
[2017-08-21] MEDS ORDERED: Mouth Piece, Nicotine* 1 EACH CARTRIDGE INH ONE (17:00)
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
[2017-08-21] MEDS: Nicotine Patch Removal NOTE FOLLOW UP SCH (19:43)
[2017-08-21] MEDS: QUEtiapine TAB* 100 MG PO SCH (21:52)
[2017-08-22] MEDS: Nicotine PATCH 7 MG/24 HR* PATCH TRANSDERM SCH (08:38)
[2017-08-22] MEDS: Citalopram TAB* 40 MG PO SCH (08:40)
[2017-08-22] MEDS: HYDROcodone/ACETAMIN 5-325 MG* 1 TAB PO PRN ×3 (08:40→20:14)
[2017-08-22] MEDS: Vitamin THERAPEUTIC TAB PO SCH (08:41)
[2017-08-22] MEDS: Propranolol TAB* 10 MG PO SCH ×2 (08:41→21:48)
[2017-08-22] MEDS: Nicotine Inhaler* 10 MG AMP Q2H PRN CRAVING INH ×4 (10:13→22:59)
[2017-08-22] MEDS: Nicotine GUM* 2 MG PO PRN ×3 (12:54→22:59)
[2017-08-22] MEDS: Naproxen TAB* 250 MG PO PRN ×2 (12:54→22:57)
--- NOTE | 2017-08-22 13:45 | PN ---
Subjective - Subjective Service Type: 95212 Hosp care 25 min moderate complexity Subjective: Patient endorses depressed mood and anxiety. He states he is grieving the loss of his mother when she suddenly on his birthday this year. Patient reports renewed commitment to recovery and plans to continue with outpatient treatment for alcohol use. He is also interested in targeting grief in therapy. He states his , Franck, is supportive and they have a healthy relationship. Patient reports significant throbbing pain r/t fracture in R hand. Objective - Appearance Appearance: Healthy Appearing Dysmorphic Features: No Hygiene: Normal Grooming: Well Kept - Behavior Psychomotor Activities: Normal - Attitude and Relatedness Attitude and Relatedness: Cooperative Eye Contact: Good - Speech Quality: Unpressured Latencies: Normal Quantity: Appropriate - Mood Patient's Decription of Mood: "Anxious" - Affect Observed Affect: Good Affect Consistent with: Euthymia - Thought Process Patient's Thought Process: Coherent, Goal Directed Thought Content: No Passive Wish, No Suicidal Planning, No Homicidal Ideation, No Paranoid Ideation - Sensorium Experiencing Hallucinations: No, Sensorium is Clear Type of Hallucinations: Visual: No, Auditory: No, Command: No - Level of Consciousness Level of Consciousness: Alert Orientation: Yes Intact, Yes Orientated to Time, Yes Orientated to Place, Yes Orientated to Person - Impulse Control Impulse Control: Intact - Insight and Judgement Insight and Judgement: Good - Group Participation Particating in Group Activities: Yes - Medication Management Medication Management Adherence: Yes Assessment - Assessment Merits Inpatient Hospitalization: For Immediate Safety, For Stabilization, Consolidate Improvements Inpatient DSM-IV Dx: major depressive d/o, with anxious distress; alcohol use d/ o; bereavement Clinical Impression: 37yo male with history of alcohol use d/o in remission. His mother suddenly less than two months ago and patient has had difficulty coping with the loss. He relapsed on alcohol and broke his hand while intoxicated. He ended up admitted to medical floor due to severe withdrawal symptoms. He was transferred to psychiatric floor when medically stable. Plan - Plan Treatment Plan: Name: KEO GUZMAN Birthdate: 1980 [id number] continue acute intensive psychiatric treatment. Change celexa to venlafaxine XR to better target depression and anxiety. Increase use of [place] for pain control. Decrease to q30min observation and allow staff pass. Discharge planning to include and outpatient providers. Continued Medication Management: Different Medication Medications: Current Medications Acetaminophen (Tylenol Tab*) 650 mg PO Q4H PRN PRN Reason: for pain; or Temp >101 F Last Admin: 08/20/17 20:02 Dose: 650 mg Hydrocodone Bitart/Acetaminophen ([place] 5-325 Tab*) 1 tab PO Q6H PRN PRN Reason: PAIN Last Admin: 08/22/17 08:40 Dose: 1 tab Al Hydrox/Mg Hydrox/Simethicone (Maalox Plus*) 30 ml PO Q4H PRN PRN Reason: INDIGESTION Last Admin: 08/20/17 21:42 Dose: 30 ml Citalopram Hydrobromide (Celexa Tab*) 40 mg PO DAILY [facility] Last Admin: 08/22/17 08:40 Dose: 40 mg Multivitamins (Theragran Tab*) 1 tab PO DAILY [facility] Last Admin: 08/22/17 08:41 Dose: 1 tab Naproxen (Naprosyn Tab*) 500 mg PO BID WITH MEALS PRN PRN Reason: PAIN Last Admin: 08/22/17 12:54 Dose: 500 mg Nicotine (Nicotine Patch 7 Mg/24 Hr*) 1 patch TRANSDERM DAILY@0800 [facility] Last Admin: 08/22/17 08:38 Dose: Not Given Nicotine (Nicotine Inhaler*) 10 mg INH Q2H PRN PRN Reason: CRAVING Last Admin: 08/22/17 12:54 Dose: 10 mg Nicotine Polacrilex (Nicotine Gum*) 2 mg PO Q2H PRN PRN Reason: CRAVING Last Admin: 08/22/17 12:54 Dose: 2 mg Pharmacy Profile Note (Nicotine Patch Removal Note*) 1 note FOLLOW UP 2100 [facility] Last Admin: 08/21/17 19:43 Dose: Not Given Propranolol HCl (Inderal Tab*) 30 mg PO BID [facility] Last Admin: 08/22/17 08:41 Dose: 30 mg Quetiapine Fumarate (Seroquel Tab*) 100 mg PO BEDTIME [facility] Last Admin: 08/21/17 21:52 Dose: 100 mg - Discharge Plan Discharge Plan: Outpatient Follow Up Outpatient Program: Private Clinician(s)
[2017-08-22] MEDS: Nicotine Patch Removal NOTE FOLLOW UP SCH (20:27)
[2017-08-22] MEDS: QUEtiapine TAB* 100 MG PO SCH (21:48)
[2017-08-23] MEDS: Propranolol TAB* 10 MG PO SCH ×2 (08:53→21:50)
[2017-08-23] MEDS: Vitamin THERAPEUTIC TAB PO SCH (08:53)
[2017-08-23] MEDS: Venlafaxine EXT RELEASE CAP* 75 MG PO SCH (08:53)
[2017-08-23] MEDS: HYDROcodone/ACETAMIN 5-325 MG* 1 TAB PO PRN ×4 (08:55→21:06)
[2017-08-23] MEDS: Nicotine GUM* 2 MG PO PRN ×5 (08:56→21:49)
[2017-08-23] MEDS: Nicotine Inhaler* 10 MG AMP Q2H PRN CRAVING INH ×5 (08:56→21:49)
[2017-08-23] MEDS: Nicotine PATCH 7 MG/24 HR* PATCH TRANSDERM SCH (09:00)
--- NOTE | 2017-08-23 13:15 | PN ---
MHU: Group Therapy Note - Service Type Service Type: 53220 Group Psychotherapy - Cognitive Behavioral Group Therapy ( CBT):Patient was attentive and participatory in CBT programming this morning, and remained in good behavioral control. Patient expressed positive insights regarding relevant treatment interventions and goals.
--- NOTE | 2017-08-23 15:16 | PN ---
Subjective - Subjective Service Type: 05528 Hosp care 15 min low complexity Subjective: Patient reports mild improvement in mood. He denies side effects from change in medication. He states he spoke with his via phone and they discussed plans for him to return home. They are considering couples counseling. Keo denies problems with the relationship and states that his , Franck, has much childhood trauma to deal with. Keo reports benefitting from milieu and programming. Objective - Appearance Appearance: Thin Framed Hygiene: Normal Grooming: Well Kept - Behavior Psychomotor Activities: Normal Exhibits Abnormal Movement: No - Attitude and Relatedness Attitude and Relatedness: Cooperative Eye Contact: Good - Speech Quality: Unpressured Latencies: Normal Quantity: Appropriate - Mood Patient's Decription of Mood: "Good" - Affect Observed Affect: Good Affect Consistent with: Euthymia - Thought Process Patient's Thought Process: Coherent, Goal Directed Thought Content: No Passive Wish, No Suicidal Planning, No Homicidal Ideation, No Paranoid Ideation - Sensorium Experiencing Hallucinations: No, Sensorium is Clear Type of Hallucinations: Visual: No, Auditory: No, Command: No - Level of Consciousness Level of Consciousness: Alert Orientation: Yes Intact, Yes Orientated to Time, Yes Orientated to Place, Yes Orientated to Person - Impulse Control Impulse Control: Intact - Insight and Judgement Insight and Judgement: Good - Group Participation Particating in Group Activities: Yes - Medication Management Medication Management Adherence: Yes Assessment - Assessment Merits Inpatient Hospitalization: For Immediate Safety, For Stabilization, For Discharge Planning Inpatient DSM-IV Dx: major depressive d/o, with anxious distress; alcohol use d/ o; bereavement Clinical Impression: 37yo male with history of alcohol use d/o in remission. His mother suddenly less than two months ago and patient has had difficulty coping with the loss. He relapsed on alcohol and broke his hand while intoxicated. He ended up admitted to medical floor due to severe withdrawal symptoms. He was transferred to psychiatric floor when medically stable. Plan - Plan Treatment Plan: Name: KEO GUZMAN Birthdate: 1980 [id number] continue acute intensive psychiatric treatment. continue venlafaxine XR to better target depression and anxiety. Increase use of [place] for pain control. continue q30min observation and allow staff pass. Discharge planning to include and outpatient providers. Continued Medication Management: Different Medication Medications: Current Medications Acetaminophen (Tylenol Tab*) 650 mg PO Q4H PRN PRN Reason: for pain; or Temp >101 F Last Admin: 08/20/17 20:02 Dose: 650 mg Hydrocodone Bitart/Acetaminophen ([place] 5-325 Tab*) 1 tab PO Q4H PRN PRN Reason: PAIN Last Admin: 08/23/17 12:59 Dose: 1 tab Al Hydrox/Mg Hydrox/Simethicone (Maalox Plus*) 30 ml PO Q4H PRN PRN Reason: INDIGESTION Last Admin: 08/20/17 21:42 Dose: 30 ml Multivitamins (Theragran Tab*) 1 tab PO DAILY [facility] Last Admin: 08/23/17 08:53 Dose: 1 tab Naproxen (Naprosyn Tab*) 500 mg PO BID WITH MEALS PRN PRN Reason: PAIN Last Admin: 08/22/17 22:57 Dose: 500 mg Nicotine (Nicotine Patch 7 Mg/24 Hr*) 1 patch TRANSDERM DAILY@0800 [facility] Last Admin: 08/23/17 09:00 Dose: Not Given Nicotine (Nicotine Inhaler*) 10 mg INH Q2H PRN PRN Reason: CRAVING Last Admin: 08/23/17 12:59 Dose: 10 mg Nicotine Polacrilex (Nicotine Gum*) 2 mg PO Q2H PRN PRN Reason: CRAVING Last Admin: 08/23/17 13:00 Dose: 2 mg Pharmacy Profile Note (Nicotine Patch Removal Note*) 1 note FOLLOW UP 2100 [facility] Last Admin: 08/22/17 20:27 Dose: Not Given Propranolol HCl (Inderal Tab*) 30 mg PO BID [facility] Last Admin: 08/23/17 08:53 Dose: 30 mg Quetiapine Fumarate (Seroquel Tab*) 100 mg PO BEDTIME [facility] Last Admin: 08/22/17 21:48 Dose: 100 mg Venlafaxine HCl (Effexor Xr Cap*) 150 mg PO DAILY [facility] Last Admin: 08/23/17 08:53 Dose: 150 mg - Discharge Plan Discharge Plan: Outpatient Follow Up Outpatient Program: Private Clinician(s)
[2017-08-23] MEDS: Nicotine Patch Removal NOTE FOLLOW UP SCH (21:48)
[2017-08-23] MEDS: QUEtiapine TAB* 100 MG PO SCH (21:50)
[2017-08-23] MEDS: Naproxen TAB* 250 MG PO PRN (23:35)
[2017-08-24 07:42] VITALS: BP 122/67
[2017-08-24] MEDS: Naproxen TAB* 250 MG PO PRN (09:01)
[2017-08-24] MEDS: Propranolol TAB* 10 MG PO SCH (09:02)
[2017-08-24] MEDS: Nicotine PATCH 7 MG/24 HR* PATCH TRANSDERM SCH (09:02)
[2017-08-24] MEDS: HYDROcodone/ACETAMIN 5-325 MG* 1 TAB PO PRN ×2 (09:02→13:02)
[2017-08-24] MEDS: Nicotine GUM* 2 MG PO PRN ×3 (09:03→14:56)
[2017-08-24] MEDS: Vitamin THERAPEUTIC TAB PO SCH (09:03)
[2017-08-24] MEDS: Venlafaxine EXT RELEASE CAP* 75 MG PO SCH (09:03)
[2017-08-24] MEDS: Nicotine Inhaler* 10 MG AMP Q2H PRN CRAVING INH ×3 (09:04→14:56)
--- NOTE | 2017-08-24 14:16 | PN ---
MHU: Group Therapy Note - Service Type Service Type: 80544 Group Psychotherapy - Cognitive Behavioral Group Therapy ( CBT):Patient was attentive and participatory in CBT programming this morning, and remained in good behavioral control. Patient expressed positive insights regarding relevant treatment interventions and goals.
[2017-08-24] MEDS ORDERED: Disulfiram TAB* 250 MG PO SCH (21:00)
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
== END 2017-08-24 16:45 | disposition home or self-care (01) | DRG 754 ==
LOC: BSU 13:00
PROVIDERS: ADMIT Psychiatry & Neurology Psychiatry; ATTEND Psychiatry & Neurology Psychiatry
PROC: GZHZZZZ Group Psychotherapy (ICD-10-PCS; principal; 2017-08-20)
DX: F32.9 Major depressive disorder, single episode, unspecified (principal); F10.229 Alcohol dependence with intoxication, unspecified; F10.239 Alcohol dependence with withdrawal, unspecified; F17.200 Nicotine dependence, unspecified, uncomplicated; Z91.011 Allergy to milk products; Z91.010 Allergy to peanuts; Z63.4 Disappearance and death of family member; Y90.8 Blood alcohol level of 240 mg/100 ml or more; S62.612A Displaced fracture of proximal phalanx of right middle finger, initial encounter for closed fracture; Y04.0XXA Assault by unarmed brawl or fight, initial encounter; Y92.9 Unspecified place or not applicable; G25.0 Essential tremor
CPT/HCPCS: 90853; 99231; 99232; 99238; A9270-GY

== ENCOUNTER 2017-09-27 16:42 | Emergency (ER) | payer OTHER ==
[2017-09-27 17:03] VITALS: BP 146/82
[2017-09-27] MEDS ORDERED: Penicillin G Benzathine 2.4MU* 2,400,000 UNITS/4 ML SYR IM ONE (17:23)
--- NOTE | 2017-09-27 20:46 | UC ---
Mane Aparicio Thomas, scribed for Freddy aLndry MD on 09/27/17 at 1730 . General HPI - HPI Summary HPI Summary: The pt is a 37 y/o M presenting to Urgent Care after his was recently diagnosed with syphilis. At urgent care, the patient does not complain of any symptoms. He would like to be tested for all appropriate STDs. He is monogamous with his partner and has been with his for years. The patient does not use condoms with his partner. He denies unsafe sex with any persons other than his . - History of Current Complaint [facility] Stated Complaint: PERSONAL Time Seen by Provider: 09/27/17 17:00 Hx Obtained From: Patient Onset/Duration: Lasting Days - diagnosed in last few days, Still Present Timing: Constant Pain Intensity: 0 Aggravating: Not applicable Alleviating: Not applicable Associated Signs & Symptoms: Negative: Other - patient denies any symptoms - Allergy/Home Medications Allergies/Adverse Reactions: Allergies Allergy/AdvReac Type Severity Reaction Status Date / Time Peanut-containing Drug Allergy Severe Anaphylatic Verified 09/27/17 17:04 Products Shock PMH/Surg Hx/FS Hx/Imm Hx Previously Healthy: No - NEGATIVE: DM, HTN Other History Of: Negative For: Anticoagulant Therapy - Surgical History Surgical History: Yes Surgery Procedure, Year, and Place: [place] Teeth Extraction. Moles Removed - Family History Known Family History: Positive: Other - EtOH abuse and depression per EMR. Negative: Hypertension, Diabetes - Social History Lives: With Family Alcohol Use: Daily Substance Use Type: None Smoking Status (MU): Heavy Every Day Tobacco Smoker Type: Cigarettes Amount Used/How Often: 1/2 PPD Have You Smoked in the Last Year: Yes Household Exposure Type: Cigarettes - Immunization History Most Recent Influenza Vaccination: Never Most Recent Tetanus Shot: Unsure Most Recent Pneumonia Vaccination: Never Review of Systems Constitutional: Other - NEGATIVE: fever Genitourinary: Other - NEGATIVE: any pain Is Patient Immunocompromised?: No All Other Systems Reviewed And Are Negative: Yes Physical Exam Triage Information Reviewed: Yes Vital Signs: Initial Vital Signs Temp 99.0 F 09/27/17 16:59 Pulse 63 09/27/17 16:59 Resp 16 09/27/17 16:59 BP 146/82 09/27/17 16:59 Pulse Ox 100 09/27/17 16:59 Vital Signs Reviewed: Yes - Additional Comments VITAL SIGNS: Reviewed. GENERAL: Patient is a well developed and nourished male who is lying comfortable in the stretcher. Patient is not in any acute respiratory distress. HEAD AND FACE: Normocephalic EYES: PERRLA, EOMI x 2. EARS: Hearing grossly intact. MOUTH: Oropharynx within normal limits. NECK: Supple, trachea is midline, no adenopathy, no JVD, no carotid bruit. CHEST: Symmetric, no tenderness at palpation LUNGS: Clear to auscultation bilaterally. No wheezing or crackles. CVS: Regular rate and rhythm, S1 and S2 present, no murmurs or gallops appreciated. ABDOMEN: Soft, non-tender. Bowel sounds are normal. No abdominal abnormal pulsations. EXTREMITIES: Full ROM in all major joints, no edema, no cyanosis or clubbing. NEURO: Alert and oriented x 3. No acute neurological deficits. Speech is normal and follows commands. SKIN: Dry and warm Course/Dx - Course Course Of Treatment: The pt is a 37 y/o M presenting to Urgent Care after his was recently diagnosed with syphilis. At urgent care, the patient does not complain of any symptoms. He would like to be tested for all appropriate STD s. The patient was given Bicilin. STD testing was obtained and the results will be communicated by phone to the patient at a later date. - Differential Dx - Multi-Symptom Provider Diagnoses: Sexually transmitted disease Discharge - Discharge Plan Condition: Stable Disposition: HOME Patient Education Materials: Sexually Transmitted Diseases (ED) Referrals: Bala Grady III [facility]ILLER [Primary Care Provider] - 3 Days Additional Instructions: Follow up with your primary care provider in 3 days. The documentation as recorded by the Mane covington Thomas accurately reflects the service I personally performed and the decisions made by , Freddy Landry MD.
[2017-09-28 12:50] LABS: Syphilis Index < 0.1 Index
--- NOTE | 2017-09-28 19:41 | UC ---
Progress - Progress Note Progress Note: Treated with bicillin due to partner with syphilis. Please advised that HIV was not reactive and that the test for syphilis antibodies was negative. Ensure follows up with PMD
== END 2017-09-27 17:50 | disposition home or self-care (01) ==
LOC: UCEAST 16:42
DX: Z20.2 Contact with and (suspected) exposure to infections with a predominantly sexual mode of transmission (principal); Z72.0 Tobacco use
CPT/HCPCS: 36415; 86592; 86703; 87491; 87591; 87661; 96372; 99211; G0463; J0561

== ENCOUNTER 2017-10-30 16:34 | Inpatient (IN) | payer MEDICAID, OTHER ==
[2017-10-30 18:39] LABS: Urine Appearance Clear; Urine Blood 2+ (Negative); Urine Color Straw; Urine Ketones Negative (Negative); Urine Protein Negative (Negative); Urine Specific Gravity 1.003 (1.010-1.030); Urine Urobilinogen Negative (Negative)
--- NOTE | 2017-10-30 18:53 | ED ---
Lisa Aparicio Gabriel, scribed for Kimber Sanchez MD on 10/30/17 at 1820 . Psychiatric Complaint - HPI Summary HPI Summary: This patient is a 37 year old M BIBA to [facility] with a chief complaint of SI since the past few days. Patient reports increased anxiety. Pt states he has a prescription for Klonopin and Xanax that he stopped taking 10 days ago because he ran out. pt denies taking more than prescribed. Pt continues to take his propanolol for palpitation as well as his antidepresant as prescibred. Pt states he has a history of alcoholism, had been sober x 6 years, but has been using this well to help with his anxiety. Pt is followed by his mental health counselor at [facility]. Pt was last seen on but states he did not reveal his alcohol relapse and being out of his klonopin and xanax. Pt states his became worried about him when he started talking about . Pt reportedly has SI but denied a plan to me. Pt denies cp, sob, abd pain. Pt denies n/v/d. + po today. No fever, chills, rashes. Pt states he is intoxicated at presentation to the ED - History Of Current Complaint Chief Complaint: EDMentalHealth Time Seen by Provider: 10/30/17 17:38 Hx Obtained From: Patient Onset/Duration: Lasting Days, Still Present Timing: Constant Severity Initially: Mild Severity Currently: Mild Character: Depressed, Anxious Aggravating Factor(s): Other - ran out of medication Alleviating Factor(s): Nothing Related History: Positive For: Admissions Related To Substance Abuse Has Suicidal: Reports: Thoughts - Allergies/Home Medications Allergies/Adverse Reactions: Allergies Allergy/AdvReac Type Severity Reaction Status Date / Time Peanut-containing Drug Allergy Severe Anaphylatic Verified 09/27/17 17:04 Products Shock PMH/Surg Hx/FS Hx/Imm Hx Previously Healthy: No Endocrine/Hematology History: Denies: Hx Anticoagulant Therapy, Hx Diabetes - general medical health ok. hx addiction. recently [facility], Hx Thyroid Disease, Other Endocrine/Hematological Disorders Cardiovascular History: Denies: Hx Hypertension, Hx Pacemaker/ICD, Other Cardiovascular Problems/ Disorders Respiratory History: Denies: Hx Asthma, Hx Chronic Obstructive Pulmonary Disease (COPD), Other Respiratory Problems/Disorders GI History: Denies: Hx Ulcer, Other GI Disorders History: Denies: Hx Renal Disease, Other Problems/Disorders Musculoskeletal History: Reports: Hx Orthopedic Injury - REPORTS FINGER FX Denies: Other Musculoskeletal History Sensory History: Denies: Hx Cataracts, Hx Contacts or Glasses, Hx Hearing Aid, Other Sensory Impairments Opthamlomology History: Denies: Hx Cataracts, Hx Contacts or Glasses, Other Sensory Impairments Neurological History: Reports: Hx Seizures - r/t alcohol withdrawl Denies: Hx Dementia, Other Neuro Impairments/Disorders Psychiatric History: Reports: Hx Anxiety, Hx Attention Deficit Hyperactivity Disorder, Hx Depression, Hx Inpatient Treatment, Hx Community Mental Health Tx, Hx Substance Abuse, Other Psychiatric Issues/Disorders - substance abuse Denies: Hx Eating Disorder, Hx Suicide Attempt, Hx of Violent Episodes Against Others - Surgical History Surgery Procedure, Year, and Place: [place] Teeth Extraction. Moles Removed - Immunization History Date of Tetanus Vaccine: UNK Date of Influenza Vaccine: NONE Infectious Disease History: No Infectious Disease History: Denies: Hx Clostridium Difficile, Hx Hepatitis, Hx Human Immunodeficiency Virus (HIV), Hx of Known/Suspected MRSA, Hx Shingles, Hx Tuberculosis, Hx Known/ Suspected VRE, Hx Known/Suspected VRSA, History Other Infectious Disease, Traveled Outside the [place] in Last 30 Days - Family History Known Family History: Positive: Other - EtOH abuse and depression per EMR. Negative: Hypertension, Diabetes - Social History Alcohol Use: Daily Alcohol Amount: approximately 15 beers/day 08/14/17 Hx Substance Use: No Substance Use Type: Reports: None Substance Use Comment - Amount & Last Used: was drinking immediately before admission. He says he drinks 15 beers/day Hx Tobacco Use: Yes Smoking Status (MU): Heavy Every Day Tobacco Smoker Type: Cigarettes Amount Used/How Often: 1/2 PPD Have You Smoked in the Last Year: Yes Review of Systems Negative: Fever Neurological: Other - SI Positive: Anxious All Other Systems Reviewed And Are Negative: Yes Physical Exam Vital Signs On Initial Exam: Initial Vitals Temp Pulse Resp BP Pulse Ox 97.9 F 124 18 138/91 96 10/30/17 17:32 10/30/17 17:32 10/30/17 17:32 10/30/17 17:32 10/30/17 17:32 - [place] Coma Scale Coma Scale Total: 15 Diagnostics - Vital Signs Vital Signs Temp Pulse Resp BP Pulse Ox 10/30/17 17:32 97.9 F 124 18 138/91 96 - Laboratory Lab Results: Lab Results 10/30/17 10/30/17 Range/Units 18:16 18:16 Urine Color Straw Urine Appearance Clear Urine pH 6.0 (5-9) Ur Specific [place] 1.003 L (1.010-1.030) Urine Protein Negative (Negative) Urine Ketones Negative (Negative) Urine Blood 2+ H (Negative) Urine Nitrate Negative (Negative) Urine Bilirubin Negative (Negative) Urine Urobilinogen Negative (Negative) Ur Leukocyte Esterase Negative (Negative) Urine WBC (Auto) Trace(0-5/hpf) (Absent) Urine RBC (Auto) Trace(0-2/hpf) (Absent) Urine Bacteria Absent (Absent) Urine Glucose Negative (Negative) Urine Opiates Screen None detected (None Detect) Ur Barbiturates Screen None detected (None Detect) Ur Phencyclidine Scrn None detected (None Detect) Ur Amphetamines Screen None detected (None Detect) U Benzodiazepines Scrn None detected (None Detect) Urine Cocaine Screen None detected (None Detect) U Cannabinoids Screen None detected (None Detect) Result Diagrams: 10/30/17 19:30 10/30/17 19:30 Lab Statement: Any lab studies that have been ordered have been reviewed, and results considered in the medical decision making process. Course/Dx - Course Assessment/Plan: Pt presents with reports of increasing anxiety after running out of xanax and klonopin. Pt has coped by relapsing with alcohol after reported 6 years sobriety. Pt has had increasing thoughts of suicide although denies a plan to me. Review of istop: Reference #: [id number] - pt with Rx 30 tabs lorazepam 0.5mg on 10/19/17. Will check mental health labs. review of recent labs, Pt with ETOH 323 08/2017. pt ofference nicitone replacement, currently declines. Will need mental health eval. pt understanding of plan - Differential Dx/Clinical Impression Provider Diagnosis: Anxiety, Alcohol intoxication, Depression, Suicidal ideation - Physician Notifications Instructed by Provider To: Other - signed out Dr. Rodarte at 2200 Discharge - Discharge Plan Condition: Stable [place] [place] The documentation as recorded by the Lisa covington Gabriel accurately reflects the service I personally performed and the decisions made by me, Kimber Sanchez MD.
[2017-10-30 19:38] LABS: ABS Basophils 0.1 10^3/ul (0-0.2); ABS Eosinophils 0.1 10^3/ul (0-0.6); ABS Lymphocytes 3.3 10^3/ul (1.0-4.8); ABS Monocytes 1.4 10^3/ul (0-0.8); ABS Neutrophils 9.3 10^3/ul (1.5-7.7); ABS Nucleated RBC 0.06 10^3/ul; Eosinophil % 0.4 % (0-6); Hematocrit 43 % (42-52); Hemoglobin 15.2 g/dl (14.0-18.0); Lymphocyte % 23.4 % (25-47); Mean Corpuscular HGB Conc 35 g/dl (31-36); Mean Corpuscular Hemoglobin 31 pg (27-31); Mean Corpuscular Volume 89 fL (80-94); Mean Platelet Volume 7 um3 (7.4-10.4); Nucleated Red Blood Cells % 0.5; Platelet Count 369 10^3/ul (150-450); Red Blood Count 4.87 10^6/ul (4.0-5.4); Red Cell Distribution Width 13 % (10.5-15); White Blood Count 14.1 10^3/ul (3.5-10.8)
[2017-10-30 20:02] LABS: EGFR Non-African American 88.6 (>60)
[2017-10-30] MEDS ORDERED: Nicotine Inhaler* 10 MG AMP ONE (20:05)
[2017-10-30] MEDS ORDERED: Mouth Piece, Nicotine* 1 EACH CARTRIDGE ONE (20:05)
[2017-10-30] MEDS ORDERED: Nicotine Inhaler* 10 MG AMP INH ONE ×2 (20:07→20:13)
[2017-10-31] MEDS: Nicotine Inhaler* 10 MG AMP INH PRN ×8 (01:03→20:38)
[2017-10-31] MEDS ORDERED: LORazepam TAB(*) 1 MG PO ONE (03:43)
[2017-10-31] MEDS ORDERED: LORazepam TAB(*) 1 MG ONE (03:45)
--- NOTE | 2017-10-31 04:54 | ED ---
Luigi Aparicio Tiffany, scribed for Rivas Rodarte on 10/31/17 at 0454 . Progress - Consult/PCP Time Called: 17:30 Course/Dx - Course Course Of Treatment: The patient will be admitted. - Diagnoses Provider Diagnoses: Anxiety, Alcohol intoxication, Depression, Suicidal ideation The documentation as recorded by the Luigi covington Tiffany accurately reflects the service I personally performed and the decisions made by Aster murray Emmanuel.
[2017-10-31] MEDS ORDERED: Acetaminophen TAB* 325 MG PO PRN (05:00)
[2017-10-31] MEDS ORDERED: LORazepam IM 0-6 mg for WAM protocol IM SCH (06:00)
[2017-10-31] MEDS ORDERED: HYDROcodone/ACETAMIN 5-325 MG* 1 TAB ONE (06:01)
[2017-10-31] MEDS: LORazepam PO 0-6 for WAM protocol PO SCH ×2 (06:03→10:51)
[2017-10-31] MEDS ORDERED: Naproxen TAB* 250 MG PO PRN (06:59)
[2017-10-31] MEDS: Nicotine GUM* 2 MG PO PRN ×6 (07:24→20:38)
[2017-10-31] MEDS: Propranolol TAB* 10 MG PO SCH ×2 (07:25→20:37)
[2017-10-31] MEDS: Vitamin THERAPEUTIC TAB PO SCH (07:25)
[2017-10-31] MEDS: HYDROcodone/ACETAMIN 5-325 MG* 1 TAB PO SCH ×3 (07:26→20:37)
[2017-10-31] MEDS ORDERED: Venlafaxine EXT RELEASE CAP* 75 MG PO SCH (09:00)
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
[2017-10-31] MEDS: Al Hydrox/Mg Hydrox/Simet LIQ* 30 ML UDC PO PRN (16:18)
[2017-10-31] MEDS ORDERED: chlordiazePOXIDE CAP* 25 MG PO ONE ×2 (16:34→21:00)
[2017-10-31] MEDS: QUEtiapine TAB* 100 MG PO SCH (20:38)
[2017-10-31] MEDS ORDERED: chlordiazePOXIDE CAP* 25 MG ONE (20:47)
[2017-11-01] MEDS ORDERED: CMCS:Brexpiprazole (NF) 0.5 MG TAB PO SCH (09:00)
[2017-11-01] MEDS ORDERED: Brexpiprazole (NF) 4 MG TAB PO SCH (09:00)
[2017-11-01] MEDS: Propranolol TAB* 10 MG PO SCH ×2 (09:04→21:03)
[2017-11-01] MEDS: Venlafaxine EXT RELEASE CAP* 75 MG PO SCH (09:05)
[2017-11-01] MEDS: Vitamin THERAPEUTIC TAB PO SCH (09:06)
[2017-11-01] MEDS: HYDROcodone/ACETAMIN 5-325 MG* 1 TAB PO SCH ×3 (09:09→21:02)
[2017-11-01] MEDS: Nicotine GUM* 2 MG PO PRN ×7 (09:10→23:13)
[2017-11-01] MEDS: chlordiazePOXIDE CAP* 10 MG PO SCH ×2 (09:10→16:02)
[2017-11-01] MEDS: Nicotine Inhaler* 10 MG AMP INH PRN ×7 (09:10→23:13)
--- NOTE | 2017-11-01 10:51 | PN ---
Subjective - Subjective Date of Service: 11/01/17 Service Type: 48894 Hosp care 25 min moderate complexity Subjective: Psychiatric Attending Progress Note Discovered in Team meeting that patient and his were evicted from apartment. patient never shared this nor did he share extent of conflict between he and his . per healthcare social worker eviction was related to frequent disruptive conflicts. patient insists it was for non payment of rent interview X 45 min today Patient has had alcohol problems since early . graduated [employer]. 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 is chair and couch maker in [place] who has no substance problems. patient reports he was very close with mother who in May 2017. Began to tear as he talked of relationship with mother whom he had contact with on a daily basis. older brother and sister in [place] and [place] respectively. Adoptive older sister closeby. has been in several inpatient rehab programs longest sobriety 1 and one half years. usually able to pull together stretches of several months and then relapses. relapses last days to weeks and then he seeks detox. LONG STANDING AA MEMBER WITH [employer]. STATES HE ATTENDS [facility] MEETING AT LEAST 4 TO 5 TIMES WEEKLY. Mark identifies depression and anxiety as main factors for his relapses. He is very interested in trying new medication regimen. We talked about this in detail. He has used benzodiazepines with success but only prn. He has never had suicide attempt by overdosing on his medication. He reports that when he does relapse, he knows that benzodiazepines are dangerous to use with alcohol and for this reason he always stops taking prn benzodiazepine when and if he drinks alcohol. Mark has never seen psychiatrist for medication management as an outpatient but has been followed by his PCP He is relatively psychotropic medication naive having been treated with Celexa for many years in the past and subsequently effexor, inderal and prn ativan for the past year or so. Family History: depression, anxiety, alcoholism, no completed suicide, no attempted suicides, MSE: reports that his mood is somewhat improved. tolerating the librium but feels anxious and wanted to know when he could start klonopin which we discussed. does not appear medication seeking at all in my view. fragile from years of partially treated anxiety and depressin has characterological traits that are often seen with anxious patients including avoidance and passive dependence willing to go for inpatient rehab which he clearly needs no SI no psychotic symptoms insight and judgment fairly good Vitals Vital Signs: Temp Pulse Resp BP Pulse Ox 99.0 F 62 16 131/78 100 11/02/17 07:49 11/02/17 07:49 11/02/17 12:15 11/02/17 07:49 11/02/17 07:49 Assessment - Assessment Merits Inpatient Hospitalization: For Stabilization, Consolidate Improvements, Pending Safe DC Plan Inpatient DSM-IV Dx: Alcohol Dependence moderate. Alcohol Withdrawal syndrome. Major Depressive Disorder Recurrent moderate without psychotic features. Panic Disorder. Social Anxiety Disorder Clinical Impression: 37 yo with long standing alcohol dependence, Major depressive disorder recurrent , severe anxiety disorder admitted after 5 day alcohol binge/relapse in the context of reemergent major depressive episode likely related to mother's 6 months ago and loss of job 2 months ago. other stressors include marital conflict, financial difficulties, recent eviction. Patient has been hospitalized twice this year. His mood disorder has not responded adequately to effexor 150 mg. His anxiety disorders are also not adequately being address with regimen of inderal and prn ativan. Patient is tolerating medication changes and has begun to show improvement in mental status. he should not be discharged as given current stressors he will likely relapse. he requires inpatient alcohol rehab program. Plan - Plan Treatment Plan: individual/group/milieu therapy medication regimen/plan as follows: Rexulti 1 mg QAM D/C [facility] protocol.patient no longer in withdrawal D/C Ativan D/C Librium Start Klonopin 1 mg BID scheduled for severe anxiety disorders Effexor XR 225 mg daily. Will Increase to 300 mg in 1 to 2 days will check bp as effexor higher dose can cause increased bp Inderal 30 mg TID. consider changing this to extended release will discuss with patient Lower Seroquel to 50 mg qhs with additional 50 mg as needed nicotine replacement discharge plan is transfer to inpatient alcohol rehab - Discharge Plan Discharge Plan: Drug/Alcohol Rehab
[2017-11-01] MEDS: clonazePAM TAB(*) 1 MG PO SCH (18:30)
[2017-11-01] MEDS: QUEtiapine TAB* 100 MG PO SCH (23:13)
[2017-11-02] MEDS: Propranolol TAB* 10 MG PO SCH ×2 (08:57→21:06)
[2017-11-02] MEDS: clonazePAM TAB(*) 1 MG PO SCH ×2 (08:58→17:53)
[2017-11-02] MEDS: Venlafaxine EXT RELEASE CAP* 75 MG PO SCH (08:58)
[2017-11-02] MEDS: Vitamin THERAPEUTIC TAB PO SCH (08:58)
[2017-11-02] MEDS: HYDROcodone/ACETAMIN 5-325 MG* 1 TAB PO SCH ×3 (08:58→21:06)
[2017-11-02] MEDS: CMCS:Brexpiprazole (NF) 0.5 MG TAB PO SCH (08:59)
[2017-11-02] MEDS: Nicotine GUM* 2 MG PO PRN ×6 (09:02→21:07)
[2017-11-02] MEDS: Nicotine Inhaler* 10 MG AMP INH PRN ×6 (09:02→21:07)
--- NOTE | 2017-11-02 11:36 | PN ---
MHU: Group Therapy Note - Service Type Service Type: [id number] Group Psychotherapy - Cognitive Behavioral Group Therapy ( CBT):Patient was attentive and participatory in CBT programming this morning, and remained in good behavioral control. Patient expressed positive insights regarding relevant treatment interventions and goals.
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
--- NOTE | 2017-11-02 16:23 | PN ---
MHU: Group Therapy Note - Service Type Service Type: [id number] Group Psychotherapy - Medication Education Group: Patient was attentive and participatory in group, and remained in good behavioral control. Patient expressed positive insights regarding relevant treatment interventions. Patient stated understanding of material discussed and had appropriate questions.
[2017-11-03] MEDS: clonazePAM TAB(*) 1 MG PO SCH ×2 (08:30→16:44)
[2017-11-03] MEDS: Propranolol TAB* 10 MG PO SCH ×2 (08:31→21:08)
[2017-11-03] MEDS: CMCS:Brexpiprazole (NF) 0.5 MG TAB PO SCH (08:31)
[2017-11-03] MEDS: HYDROcodone/ACETAMIN 5-325 MG* 1 TAB PO SCH ×3 (08:31→21:09)
[2017-11-03] MEDS: Venlafaxine EXT RELEASE CAP* 75 MG PO SCH (08:32)
[2017-11-03] MEDS: Vitamin THERAPEUTIC TAB PO SCH (08:32)
[2017-11-03] MEDS: Nicotine GUM* 2 MG PO PRN ×6 (08:35→21:08)
[2017-11-03] MEDS: Nicotine Inhaler* 10 MG AMP INH PRN ×6 (08:35→21:08)
--- NOTE | 2017-11-03 11:08 | PN ---
Subjective - Subjective Date of Service: 11/03/17 Subjective: Progress Note: met with social media campaign manager to discuss patient's case in detail. social media campaign manager spoke with and with patient's structural engineering drafting officer Patient is awaiting direct transfer to inpatient alcohol rehab 30 day stay. He is profoundly depressed and was admitted with suicidal ideation, heavy alcohol usage after relapsing several days prior to admission. Patient's does not feel patient will be safe. he told social media campaign manager that Mark has been hopeless, isolating at home, ruminating and verbalizing suicidal ideation for past couple of weeks feels mark is at high risk for making suicide attempt Of further concern is that couple was served with eviction notice does not feel that he can live with mark at this time and has moved in with friends. Father reported to housing management officer that Mark is driving a motor vehicle despite having his license suspended for DUI. probation and parole officer told our social media campaign manager that Mark must go directly to an alcohol rehab center from the hospital. If he discharges from the hospital she intends to violate his probation which would cause an arrest warrant to be issued. The loss of his mother is a catstrophic stressor for this patient at this time He is fragile and has not consciously dealt with his mother's loss. He is highly suppressed with regard to his grief. furthermore, he minimizes and is in denial with regard to his own potential to be danger to self. Mark has been requesting to be discharged early for past 2 days. He is highly defended and fragile. He lacks insight into the severity of his mental illness and his judgment is very poor If discharged it is my strong concern that he would likely return to drinking and would be at high risk for making suicide attempt. I have explained process to mark of putting in a 72 hour letter and told him that he has right to request a discharge with that letter. Objective - Appearance Appearance: Thin Framed Dysmorphic Features: No Hygiene: Dirty Grooming: Fairly Well Kept - Behavior Psychomotor Activities: Normal Exhibits Abnormal Movement: No - Attitude and Relatedness Attitude and Relatedness: Withdrawn Eye Contact: Fair - Speech Quality: Unpressured Latencies: Normal Quantity: Appropriate - Mood Patient's Decription of Mood: "Upset" - Affect Observed Affect: Tense Affect Consistent with: Dysphoria - Thought Process Patient's Thought Process: Coherent Thought Content: Yes Passive Wish, No Suicidal Planning, No Homicidal Ideation, No Paranoid Ideation - Sensorium Experiencing Hallucinations: No, Sensorium is Clear Type of Hallucinations: Visual: No, Auditory: No, Command: No - Level of Consciousness Level of Consciousness: Alert Orientation: Yes Intact, Yes Orientated to Time, Yes Orientated to Place, Yes Orientated to Person - Impulse Control Impulse Control: Tenuous - Insight and Judgement Insight and Judgement: Impaired - Group Participation Particating in Group Activities: Yes - Medication Management Medication Management Adherence: Yes Assessment - Assessment Merits Inpatient Hospitalization: For Immediate Safety, For Stabilization, Pending Safe DC Plan Inpatient DSM-IV Dx: Alcohol Dependence moderate. Alcohol Withdrawal syndrome. Major Depressive Disorder Recurrent moderate without psychotic features. Panic Disorder. Social Anxiety Disorder Clinical Impression: 37 yo with long standing alcohol dependence, Major depressive disorder recurrent , severe anxiety disorder admitted after 5 day alcohol binge/relapse in the context of reemergent major depressive episode likely related to mother's 6 months ago and loss of job 2 months ago. other stressors include marital conflict, financial difficulties, recent eviction. Patient has been hospitalized twice this year. His mood disorder has not responded adequately to effexor 150 mg. His anxiety disorders are also not adequately being address with regimen of inderal and prn ativan. Patient is tolerating medication changes and has begun to show improvement in mental status. he should not be discharged as given current stressors he will likely relapse. he requires inpatient alcohol rehab program. Patient is requesting discharge home discussion with his reveals patient has been highly suicidal, depressed , desperate since of mother 6 months ago. he has been verbalizing SI and relapsed on alcohol. He has no home to return to as he was evicted. is temporarily from patient and moving in with a friend. He faces incarceration for violation of parole if he does not coomply with discharge plan which is to transfer to inpatient rehab facility when bed becomes available. Patient is resistant to plan and is setting himself up for failure. He has been told that he will not be discharged and has option of putting in a 72 hour letter. Plan - Plan Treatment Plan: individual/group/milieu therapy medication regimen/plan as follows: Rexulti 1 mg QAM Klonopin 1 mg BID scheduled for severe anxiety disorders Effexor XR 225 mg daily. Will Increase to 300 mg in 1 to 2 days will check bp as effexor higher dose can cause increased bp Inderal 30 mg TID. consider changing this to extended release will discuss with patient never changed Seroquel to 50 mg. on second thought patient is sleeping well and will continue at 100 mg qhs for now nicotine replacement discharge plan is transfer to inpatient alcohol rehab will add wellbutrin XL 150 mg qam
[2017-11-03] MEDS: QUEtiapine TAB* 100 MG PO SCH (16:24)
[2017-11-04] MEDS: QUEtiapine TAB* 100 MG PO SCH (03:00)
[2017-11-04] MEDS: Nicotine Inhaler* 10 MG AMP INH PRN ×6 (07:34→19:52)
[2017-11-04] MEDS: Nicotine GUM* 2 MG PO PRN ×6 (07:34→19:52)
[2017-11-04] MEDS: Venlafaxine EXT RELEASE CAP* 75 MG PO SCH (08:12)
[2017-11-04] MEDS: clonazePAM TAB(*) 1 MG PO SCH ×2 (08:12→17:23)
[2017-11-04] MEDS: Propranolol TAB* 10 MG PO SCH ×2 (08:12→21:11)
[2017-11-04] MEDS: Vitamin THERAPEUTIC TAB PO SCH (08:12)
[2017-11-04] MEDS: CMCS:Brexpiprazole (NF) 0.5 MG TAB PO SCH (08:13)
[2017-11-04] MEDS: HYDROcodone/ACETAMIN 5-325 MG* 1 TAB PO SCH ×3 (08:13→21:11)
[2017-11-05] MEDS: QUEtiapine TAB* 100 MG PO SCH ×2 (00:47→21:43)
[2017-11-05] MEDS: Propranolol TAB* 10 MG PO SCH ×2 (08:04→21:17)
[2017-11-05] MEDS: Vitamin THERAPEUTIC TAB PO SCH (08:04)
[2017-11-05] MEDS: Venlafaxine EXT RELEASE CAP* 75 MG PO SCH (08:05)
[2017-11-05] MEDS: HYDROcodone/ACETAMIN 5-325 MG* 1 TAB PO SCH ×3 (08:05→21:17)
[2017-11-05] MEDS: CMCS:Brexpiprazole (NF) 0.5 MG TAB PO SCH (08:05)
[2017-11-05] MEDS: clonazePAM TAB(*) 1 MG PO SCH ×2 (08:05→17:30)
[2017-11-05] MEDS: Nicotine GUM* 2 MG PO PRN ×5 (10:03→21:17)
[2017-11-05] MEDS: Nicotine Inhaler* 10 MG AMP INH PRN ×5 (10:03→21:17)
[2017-11-06] MEDS: CMCS:Brexpiprazole (NF) 0.5 MG TAB PO SCH (08:24)
[2017-11-06] MEDS: Propranolol TAB* 10 MG PO SCH ×2 (08:25→20:42)
[2017-11-06] MEDS: Venlafaxine EXT RELEASE CAP* 75 MG PO SCH (08:26)
[2017-11-06] MEDS: Vitamin THERAPEUTIC TAB PO SCH (08:26)
[2017-11-06] MEDS: HYDROcodone/ACETAMIN 5-325 MG* 1 TAB PO SCH ×3 (08:27→20:43)
[2017-11-06] MEDS: clonazePAM TAB(*) 1 MG PO SCH ×2 (08:28→16:36)
[2017-11-06] MEDS: Nicotine GUM* 2 MG PO PRN ×5 (08:30→19:51)
[2017-11-06] MEDS: Nicotine Inhaler* 10 MG AMP INH PRN ×5 (08:30→19:51)
--- NOTE | 2017-11-06 17:53 | PN ---
Subjective - Subjective Subjective: Keo is concerned that his "ADHD" is not being addressed during his admission, asserts that he was on Aderall in the past. We discussed how starting a controlled substance would be problematic as he is on his way to inpatient rehab. He denies withdrawal symptoms, SI/HI and side effects from prescribed medications. Per staff, he remains adherent to unit's routines. Objective - Appearance Appearance: Healthy Appearing Dysmorphic Features: No Hygiene: Normal Grooming: Well Kept - Behavior Psychomotor Activities: Normal Exhibits Abnormal Movement: No - Attitude and Relatedness Attitude and Relatedness: Manipulative Eye Contact: Fair - Speech Quality: Unpressured Latencies: Normal Quantity: Appropriate - Mood Patient's Decription of Mood: "Okay" - Affect Observed Affect: Fair Affect Consistent with: Euthymia - Thought Process Patient's Thought Process: Coherent, Goal Directed Thought Content: No Passive Wish, No Suicidal Planning, No Homicidal Ideation, No Paranoid Ideation - Sensorium Experiencing Hallucinations: No, Sensorium is Clear - Level of Consciousness Level of Consciousness: Alert Orientation: Yes Intact - Impulse Control Impulse Control: Intact - Insight and Judgement Insight and Judgement: Poor - Group Participation Particating in Group Activities: Yes - Medication Management Medication Management Adherence: Yes Assessment - Assessment Merits Inpatient Hospitalization: Consolidate Improvements, For Discharge Planning Inpatient DSM-IV Dx: Alcohol Dependence moderate. Alcohol Withdrawal syndrome. Major Depressive Disorder Recurrent moderate without psychotic features. Panic Disorder. Social Anxiety Disorder Clinical Impression: Progressing well detoxification, with occasional med-seeking stances, remains "motivated" to go to inpatient rehab. Plan - Plan Treatment Plan: Name: KEO GUZMAN Birthdate: 1980 [id number] Continued Medication Management: Continue Outpt Medication Medications: Current Medications Acetaminophen (Tylenol Tab*) 650 mg PO Q4H PRN PRN Reason: PAIN or TEMP > 101 F Hydrocodone Bitart/Acetaminophen ([place] 5-325 Tab*) 1 tab PO TID [facility] Last Admin: 11/06/17 14:18 Dose: 1 tab Al Hydrox/Mg Hydrox/Simethicone (Maalox Plus*) 30 ml PO Q4H PRN PRN Reason: INDIGESTION Last Admin: 10/31/17 16:18 Dose: 30 ml Brexpiprazole (Rexulti 0.5 Mg Tab (Nf)) 1 mg PO DAILY@0900 [facility] Last Admin: 11/06/17 08:24 Dose: 1 mg Clonazepam (Klonopin Tab(*)) 1 mg PO BID@0800,1700 [facility] Last Admin: 11/06/17 16:36 Dose: 1 mg Multivitamins (Theragran Tab*) 1 tab PO DAILY [facility] Last Admin: 11/06/17 08:26 Dose: 1 tab Naproxen (Naprosyn Tab*) 500 mg PO BID WITH MEALS PRN PRN Reason: PAIN Nicotine (Nicotine Inhaler*) 10 mg INH Q2H PRN PRN Reason: CRAVING Last Admin: 11/06/17 16:37 Dose: 10 mg Nicotine Polacrilex (Nicotine Gum*) 2 mg PO Q2H PRN PRN Reason: CRAVING Last Admin: 11/06/17 16:37 Dose: 2 mg Propranolol HCl (Inderal Tab*) 30 mg PO BID [facility] Last Admin: 11/06/17 08:25 Dose: 30 mg Quetiapine Fumarate (Seroquel Tab*) 100 mg PO BEDTIME [facility] Last Admin: 11/05/17 21:43 Dose: Not Given Venlafaxine HCl (Effexor Xr Cap*) 225 mg PO DAILY [facility] Last Admin: 11/06/17 08:26 Dose: 225 mg - Discharge Plan Discharge Plan: Drug/Alcohol Rehab Outpatient Program: [facility]
[2017-11-06] MEDS: QUEtiapine TAB* 100 MG PO SCH (20:42)
[2017-11-07] MEDS: Nicotine Inhaler* 10 MG AMP INH PRN ×7 (06:23→21:09)
[2017-11-07] MEDS: Nicotine GUM* 2 MG PO PRN ×7 (06:23→21:10)
[2017-11-07] MEDS: CMCS:Brexpiprazole (NF) 0.5 MG TAB PO SCH (07:51)
[2017-11-07] MEDS: Propranolol TAB* 10 MG PO SCH ×2 (07:52→21:10)
[2017-11-07] MEDS: Venlafaxine EXT RELEASE CAP* 75 MG PO SCH (07:52)
[2017-11-07] MEDS: Vitamin THERAPEUTIC TAB PO SCH (07:52)
[2017-11-07] MEDS: HYDROcodone/ACETAMIN 5-325 MG* 1 TAB PO SCH ×3 (07:54→21:10)
[2017-11-07] MEDS: clonazePAM TAB(*) 1 MG PO SCH ×2 (07:54→17:43)
[2017-11-07] MEDS ORDERED: Mouth Piece, Nicotine* 1 EACH CARTRIDGE ONE (11:30)
--- NOTE | 2017-11-07 12:02 | PN ---
MHU: Group Therapy Note - Service Type Service Type: [id number] Group Psychotherapy - Cognitive Behavioral Group Therapy ( CBT):Patient was attentive and participatory in CBT programming this morning, and remained in good behavioral control. Patient expressed positive insights regarding relevant treatment interventions and goals.
--- NOTE | 2017-11-07 12:05 | PN ---
Subjective - Subjective Date of Service: 11/07/17 Service Type: [id number] Hosp care 15 min low complexity Subjective: Psychiatric Attending PRogress Note weekend nursing report reviewed. patient was cooperative and attended groups compliant with medication. Met with him X 30 min. Mark told me he was glad we didnt discharge him. Much less defended todayand was able to admit that he needs help and needs to go for inpatient rehab. and patient talked over weekend and came to an understanding that they will reunite once mark has reestablished sobriety. Mark reports that he feels medication changes have been beneficial. anxiety decrased. Mood improving sleeping better. I spoke with older adult social work specialist who informed me that one of the rehab programs will not accept patients on benzodiazepines or opioid medication. She will therefore put in applications at several more programs. Objective - Appearance Appearance: Well Developed/Nourished Dysmorphic Features: No Hygiene: Normal Grooming: Well Kept - Behavior Psychomotor Activities: Normal Exhibits Abnormal Movement: No - Attitude and Relatedness Attitude and Relatedness: Cooperative Eye Contact: Good - Speech Quality: Unpressured Latencies: Normal Quantity: Appropriate - Mood Patient's Decription of Mood: "Anxious" - Affect Observed Affect: Tense - Thought Process Patient's Thought Process: Coherent Thought Content: No Passive Wish, No Suicidal Planning, No Homicidal Ideation, No Paranoid Ideation - Sensorium Experiencing Hallucinations: No, Sensorium is Clear Type of Hallucinations: Visual: No, Auditory: No, Command: No - Level of Consciousness Level of Consciousness: Alert Orientation: Yes Intact, Yes Orientated to Time, Yes Orientated to Place, Yes Orientated to Person - Impulse Control Impulse Control: Tenuous - Insight and Judgement Insight and Judgement: Fair - Group Participation Particating in Group Activities: Yes - Medication Management Medication Management Adherence: Yes Assessment - Assessment Merits Inpatient Hospitalization: For Immediate Safety, For Stabilization, Pending Safe DC Plan Inpatient DSM-IV Dx: Alcohol Dependence moderate. Alcohol Withdrawal syndrome. Major Depressive Disorder Recurrent moderate without psychotic features. Panic Disorder. Social Anxiety Disorder Clinical Impression: 37 yo with long standing alcohol dependence, Major depressive disorder recurrent , severe anxiety disorder admitted after 5 day alcohol binge/relapse in the context of reemergent major depressive episode likely related to mother's 6 months ago and loss of job 2 months ago. other stressors include marital conflict, financial difficulties, recent eviction. Patient has been hospitalized twice this year. His mood disorder has not responded adequately to effexor 150 mg. His anxiety disorders are also not adequately being address with regimen of inderal and prn ativan. Patient is tolerating medication changes and has begun to show improvement in mental status. he should not be discharged as given current stressors he will likely relapse. he requires inpatient alcohol rehab program. Patient is requesting discharge home discussion with his reveals patient has been highly suicidal, depressed , desperate since of mother 6 months ago. he had been verbalizing SI in the community and relapsed on alcohol. He has no home to return to as he was evicted. is temporarily from patient and moving in with a friend. He faces incarceration for violation of parole if he does not coomply with discharge plan which is to transfer to inpatient rehab facility when bed becomes available. Patient was pushing for discharge prior to 3 day salomón weekend despite potentially negative consequences of parole violation and relapse. He did not put in 72 hour letter but instead persisted with original treatment plan which was for his own betterment. Patient is awaiting transfer to a 30 day inpatient alcohol rehabilitation residential program. Plan - Plan Treatment Plan: individual/group/milieu therapy medication regimen/plan as follows: Rexulti 1 mg QAM Klonopin 1 mg BID scheduled for severe anxiety disorders Effexor XR 225 mg daily. Will Increase to 300 mg in 1 to 2 days will check bp as effexor higher dose can cause increased bp Inderal 30 mg TID. consider changing this to extended release will discuss with patient never changed Seroquel to 50 mg. on second thought patient is sleeping well and will continue at 100 mg qhs for now nicotine replacement discharge plan is transfer to inpatient alcohol rehab will add wellbutrin XL 150 mg qam
[2017-11-07] MEDS: QUEtiapine TAB* 100 MG PO SCH (23:40)
[2017-11-08] MEDS: Nicotine Inhaler* 10 MG AMP INH PRN ×8 (06:10→22:23)
[2017-11-08] MEDS: Nicotine GUM* 2 MG PO PRN ×8 (06:10→22:23)
[2017-11-08] MEDS: Propranolol TAB* 10 MG PO SCH ×2 (07:48→21:36)
[2017-11-08] MEDS: Vitamin THERAPEUTIC TAB PO SCH (07:48)
[2017-11-08] MEDS: clonazePAM TAB(*) 1 MG PO SCH ×2 (07:49→16:53)
[2017-11-08] MEDS: Venlafaxine EXT RELEASE CAP* 75 MG PO SCH (07:49)
[2017-11-08] MEDS: HYDROcodone/ACETAMIN 5-325 MG* 1 TAB PO SCH ×3 (07:50→21:36)
[2017-11-08] MEDS: CMCS:Brexpiprazole (NF) 0.5 MG TAB PO SCH (07:50)
[2017-11-08] MEDS: Al Hydrox/Mg Hydrox/Simet LIQ* 30 ML UDC PO PRN (10:28)
[2017-11-08] MEDS: QUEtiapine TAB* 100 MG PO SCH (21:36)
[2017-11-09] MEDS: Nicotine Inhaler* 10 MG AMP INH PRN ×8 (04:27→22:37)
[2017-11-09] MEDS: Nicotine GUM* 2 MG PO PRN ×8 (04:27→22:30)
[2017-11-09] MEDS: clonazePAM TAB(*) 1 MG PO SCH ×3 (07:25→21:03)
[2017-11-09] MEDS: Venlafaxine EXT RELEASE CAP* 75 MG PO SCH (07:26)
[2017-11-09] MEDS: HYDROcodone/ACETAMIN 5-325 MG* 1 TAB PO SCH ×3 (07:26→21:03)
[2017-11-09] MEDS: Vitamin THERAPEUTIC TAB PO SCH (07:26)
[2017-11-09] MEDS: CMCS:Brexpiprazole (NF) 0.5 MG TAB PO SCH (07:27)
[2017-11-09] MEDS: Propranolol TAB* 10 MG PO SCH ×2 (07:27→21:03)
--- NOTE | 2017-11-09 15:36 | PN ---
Subjective - Subjective Date of Service: 11/09/17 Service Type: [id number] Hosp care 15 min low complexity Subjective: attending groups compliant with medications making gains in terms of improved insight about his current situation ie. homeless, from ) and how his addiction/MH issues have contributed to these problems still attempting to control the choice of rehab by setting parameters about what he will and wont accept in a program this reveals entitlement. Programs are reluctant to accept patients on scheduled opiates and Benzodiazepines. I will have discussion with patient about tapering and discontinuing percocet plan is to taper and discontinue over next few days patient has been on Klonopin for longer period of time and taper will need to be slower as there is risk for withdrawal syndrome including seizures. Patient will need to go to a program that will understand and accept that patient is on benzodiazepine taper with ultimate goal as discontinuation which. Taper should be over two or 3 months. Objective - Appearance Appearance: Well Developed/Nourished Dysmorphic Features: No Hygiene: Normal Grooming: Well Kept - Behavior Psychomotor Activities: Abnormal-Increased Exhibits Abnormal Movement: No - Attitude and Relatedness Attitude and Relatedness: Cooperative Eye Contact: Good - Speech Quality: Unpressured Latencies: Normal Quantity: Appropriate - Mood Patient's Decription of Mood: "Anxious" - Affect Observed Affect: Tense Affect Consistent with: Dysphoria - Thought Process Patient's Thought Process: Goal Directed Thought Content: No Passive Wish, No Suicidal Planning, No Homicidal Ideation, No Paranoid Ideation - Sensorium Experiencing Hallucinations: No, Sensorium is Clear Type of Hallucinations: Visual: No, Auditory: No, Command: No - Level of Consciousness Level of Consciousness: Alert Orientation: Yes Intact, Yes Orientated to Time, Yes Orientated to Place - Impulse Control Impulse Control: Tenuous - Insight and Judgement Insight and Judgement: Fair - Group Participation Particating in Group Activities: Yes - Medication Management Medication Management Adherence: Yes Assessment - Assessment Merits Inpatient Hospitalization: For Stabilization, Pending Safe DC Plan Inpatient DSM-IV Dx: Alcohol Dependence moderate. Alcohol Withdrawal syndrome. Major Depressive Disorder Recurrent moderate without psychotic features. Panic Disorder. Social Anxiety Disorder Clinical Impression: 37 yo with long standing alcohol dependence, Major depressive disorder recurrent , severe anxiety disorder admitted after 5 day alcohol binge/relapse in the context of reemergent major depressive episode likely related to mother's 6 months ago and loss of job 2 months ago. other stressors include marital conflict, financial difficulties, recent eviction. Patient has been hospitalized twice this year. His mood disorder has not responded adequately to effexor 150 mg. His anxiety disorders are also not adequately being address with regimen of inderal and prn ativan. Patient is tolerating medication changes and has begun to show improvement in mental status. he should not be discharged as given current stressors he will likely relapse. he requires inpatient alcohol rehab program. Patient is requesting discharge home discussion with his reveals patient has been highly suicidal, depressed , desperate since of mother 6 months ago. he had been verbalizing SI in the community and relapsed on alcohol. He has no home to return to as he was evicted. is temporarily from patient and moving in with a friend. He faces incarceration for violation of parole if he does not coomply with discharge plan which is to transfer to inpatient rehab facility when bed becomes available. Patient was pushing for discharge prior to 3 day salomón weekend despite potentially negative consequences of parole violation and relapse. He did not put in 72 hour letter but instead persisted with original treatment plan which was for his own betterment. Patient is awaiting transfer to a 30 day inpatient alcohol rehabilitation residential program. Plan - Plan Treatment Plan: individual/group/milieu therapy medication regimen/plan as follows: Rexulti 1 mg QAM Klonopin 1 mg BID scheduled for severe anxiety disorders Effexor XR 300 mg daily Inderal 30 mg TID Seroquel 100 mg QHS nicotine replacement discharge plan is transfer to inpatient alcohol rehab Patient must go hospital to rehab directly. , budget officer and Psychiatrist all agree that patient is at risk for relapse and decompensatin in mental status
--- NOTE | 2017-11-09 16:31 | PN ---
MHU: Group Therapy Note - Service Type Service Type: [id number] Group Psychotherapy - Medication Education Group: Patient was attentive and participatory in group, and remained in good behavioral control. Patient expressed positive insights regarding relevant treatment interventions. Patient stated understanding of material discussed and had appropriate questions.
[2017-11-09] MEDS: QUEtiapine TAB* 100 MG PO SCH (23:51)
[2017-11-10] MEDS: Nicotine Inhaler* 10 MG AMP INH PRN ×8 (02:39→21:16)
[2017-11-10] MEDS: Nicotine GUM* 2 MG PO PRN ×8 (02:39→21:15)
[2017-11-10] MEDS: CMCS:Brexpiprazole (NF) 0.5 MG TAB PO SCH (07:51)
[2017-11-10] MEDS: Propranolol TAB* 10 MG PO SCH ×2 (07:51→21:15)
[2017-11-10] MEDS: Venlafaxine EXT RELEASE CAP* 75 MG PO SCH (07:52)
[2017-11-10] MEDS: clonazePAM TAB(*) 1 MG PO SCH ×2 (07:52→17:20)
[2017-11-10] MEDS: HYDROcodone/ACETAMIN 5-325 MG* 1 TAB PO SCH ×3 (07:52→21:13)
[2017-11-10] MEDS: Vitamin THERAPEUTIC TAB PO SCH (07:52)
--- NOTE | 2017-11-10 12:51 | PN ---
MHU: Group Therapy Note - Service Type Service Type: [id number] Group Psychotherapy - Cognitive Behavioral Group Therapy ( CBT):Patient was attentive and participatory in CBT programming this morning, and remained in good behavioral control. Patient expressed positive insights regarding relevant treatment interventions and goals.
[2017-11-10] MEDS: QUEtiapine TAB* 100 MG PO SCH (22:55)
[2017-11-11] MEDS: Nicotine Inhaler* 10 MG AMP INH PRN ×8 (01:35→21:11)
[2017-11-11] MEDS: Nicotine GUM* 2 MG PO PRN ×7 (01:35→17:22)
[2017-11-11] MEDS: Propranolol TAB* 10 MG PO SCH ×2 (08:02→21:09)
[2017-11-11] MEDS: CMCS:Brexpiprazole (NF) 0.5 MG TAB PO SCH (08:03)
[2017-11-11] MEDS: Vitamin THERAPEUTIC TAB PO SCH (08:03)
[2017-11-11] MEDS: clonazePAM TAB(*) 1 MG PO SCH ×2 (08:03→17:21)
[2017-11-11] MEDS: Venlafaxine EXT RELEASE CAP* 75 MG PO SCH (08:04)
[2017-11-11] MEDS: HYDROcodone/ACETAMIN 5-325 MG* 1 TAB PO SCH ×2 (08:05→17:21)
[2017-11-11] MEDS: Al Hydrox/Mg Hydrox/Simet LIQ* 30 ML UDC PO PRN ×2 (15:02→22:23)
[2017-11-11] MEDS: QUEtiapine TAB* 100 MG PO SCH (21:57)
[2017-11-12] MEDS: Nicotine Inhaler* 10 MG AMP INH PRN ×7 (02:36→22:08)
[2017-11-12] MEDS: Nicotine GUM* 2 MG PO PRN ×7 (02:37→22:08)
[2017-11-12] MEDS: Vitamin THERAPEUTIC TAB PO SCH (08:22)
[2017-11-12] MEDS: Propranolol TAB* 10 MG PO SCH ×2 (08:23→22:03)
[2017-11-12] MEDS: Venlafaxine EXT RELEASE CAP* 75 MG PO SCH (08:23)
[2017-11-12] MEDS: HYDROcodone/ACETAMIN 5-325 MG* 1 TAB PO SCH ×2 (08:23→16:19)
[2017-11-12] MEDS: CMCS:Brexpiprazole (NF) 0.5 MG TAB PO SCH (08:24)
[2017-11-12] MEDS: clonazePAM TAB(*) 1 MG PO SCH ×2 (08:24→16:19)
[2017-11-12] MEDS: QUEtiapine TAB* 100 MG PO SCH (22:03)
[2017-11-13] MEDS: Nicotine GUM* 2 MG PO PRN ×7 (08:32→22:45)
[2017-11-13] MEDS: Nicotine Inhaler* 10 MG AMP INH PRN ×7 (08:32→22:45)
[2017-11-13] MEDS: Vitamin THERAPEUTIC TAB PO SCH (08:33)
[2017-11-13] MEDS: Propranolol TAB* 10 MG PO SCH ×2 (08:33→20:46)
[2017-11-13] MEDS: clonazePAM TAB(*) 1 MG PO SCH ×2 (08:34→16:34)
[2017-11-13] MEDS: Venlafaxine EXT RELEASE CAP* 75 MG PO SCH (08:35)
[2017-11-13] MEDS: HYDROcodone/ACETAMIN 5-325 MG* 1 TAB PO SCH (08:38)
[2017-11-13] MEDS: CMCS:Brexpiprazole (NF) 0.5 MG TAB PO SCH (09:26)
--- NOTE | 2017-11-13 14:26 | PN ---
Subjective - Subjective Date of Service: 11/13/17 Service Type: [id number] Hosp care 15 min low complexity Subjective: Keo has been quiet on the unit and came happily for the assessment. Appears to know how to justify repeatedly relapsing despite grave consequences and blaming other circumstances of day today stress of a normal life. Bottomline he is not accepting personal responsibility for his alcohol use d/o and remains a very high risk for relapse if not sent to a longer term inpatient rehab clean from any control substance what so ever. Objective - Appearance Appearance: Healthy Appearing Dysmorphic Features: No Hygiene: Normal Grooming: Well Kept - Behavior Psychomotor Activities: Normal Exhibits Abnormal Movement: No - Attitude and Relatedness Attitude and Relatedness: Cooperative Eye Contact: Good - Speech Quality: Unpressured Latencies: Normal Quantity: Appropriate - Mood Patient's Decription of Mood: "Fine" - Affect Observed Affect: Non-labile - Thought Process Patient's Thought Process: Coherent, Goal Directed Thought Content: No Passive Wish, No Suicidal Planning, No Homicidal Ideation, No Paranoid Ideation - Sensorium Experiencing Hallucinations: No, Sensorium is Clear Type of Hallucinations: Visual: No, Auditory: No, Command: No - Level of Consciousness Level of Consciousness: Alert Orientation: Yes Intact, Yes Orientated to Time, Yes Orientated to Place, Yes Orientated to Person - Impulse Control Impulse Control: Intact - Insight and Judgement Insight and Judgement: Poor - Group Participation Particating in Group Activities: Yes - Medication Management Medication Management Adherence: Yes Assessment - Assessment Merits Inpatient Hospitalization: Consolidate Improvements, Pending Safe DC Plan Inpatient DSM-IV Dx: Alcohol Dependence moderate. Alcohol Withdrawal syndrome. Major Depressive Disorder Recurrent moderate without psychotic features. Panic Disorder. Social Anxiety Disorder Plan - Plan Treatment Plan: Name: KEO GUZMAN Birthdate: 1980 [id number] Continued Medication Management: Continue Outpt Medication Medications: Current Medications Acetaminophen (Tylenol Tab*) 650 mg PO Q4H PRN PRN Reason: PAIN or TEMP > 101 F Hydrocodone Bitart/Acetaminophen ([place] 5-325 Tab*) 1 tab PO DAILY@09 [facility] Stop: 11/14/17 09:01 Last Admin: 11/13/17 08:38 Dose: 1 tab Al Hydrox/Mg Hydrox/Simethicone (Maalox Plus*) 30 ml PO Q4H PRN PRN Reason: INDIGESTION Last Admin: 11/11/17 22:23 Dose: 30 ml Brexpiprazole (Rexulti 0.5 Mg Tab (Nf)) 1 mg PO DAILY@0900 [facility] Last Admin: 11/13/17 09:26 Dose: 1 mg Clonazepam (Klonopin Tab(*)) 1 mg PO BID@0800,1700 [facility] Last Admin: 11/13/17 08:34 Dose: 1 mg Multivitamins (Theragran Tab*) 1 tab PO DAILY [facility] Last Admin: 11/13/17 08:33 Dose: 1 tab Naproxen (Naprosyn Tab*) 500 mg PO BID WITH MEALS PRN PRN Reason: PAIN Last Admin: 11/11/17 11:53 Dose: 500 mg Nicotine (Nicotine Inhaler*) 10 mg INH Q2H PRN PRN Reason: CRAVING Last Admin: 11/13/17 13:44 Dose: 10 mg Nicotine Polacrilex (Nicotine Gum*) 2 mg PO Q2H PRN PRN Reason: CRAVING Last Admin: 11/13/17 13:45 Dose: 2 mg Propranolol HCl (Inderal Tab*) 30 mg PO BID [facility] Last Admin: 11/13/17 08:33 Dose: 30 mg Quetiapine Fumarate (Seroquel Tab*) 100 mg PO BEDTIME [facility] Last Admin: 11/12/17 22:03 Dose: 100 mg Venlafaxine HCl (Effexor Xr Cap*) 300 mg PO DAILY [facility] Last Admin: 11/13/17 08:35 Dose: 300 mg - Discharge Plan Discharge Plan: Drug/Alcohol Rehab
[2017-11-13] MEDS: Nicotine PATCH 21 MG/24 HR* PATCH TRANSDERM SCH (14:53)
[2017-11-13] MEDS: Nicotine Patch Removal NOTE PATCH OFF SCH (20:46)
[2017-11-13] MEDS: QUEtiapine TAB* 100 MG PO SCH (22:22)
[2017-11-14] MEDS: Nicotine GUM* 2 MG PO PRN ×9 (01:05→22:34)
[2017-11-14] MEDS: Nicotine Inhaler* 10 MG AMP INH PRN ×9 (01:05→22:33)
[2017-11-14] MEDS: HYDROcodone/ACETAMIN 5-325 MG* 1 TAB PO SCH (08:16)
[2017-11-14] MEDS: clonazePAM TAB(*) 1 MG PO SCH ×2 (08:17→16:43)
[2017-11-14] MEDS: Propranolol TAB* 10 MG PO SCH ×2 (08:17→22:15)
[2017-11-14] MEDS: Venlafaxine EXT RELEASE CAP* 75 MG PO SCH (08:20)
[2017-11-14] MEDS: Vitamin THERAPEUTIC TAB PO SCH (08:21)
[2017-11-14] MEDS: Nicotine PATCH 21 MG/24 HR* PATCH TRANSDERM SCH (08:22)
[2017-11-14] MEDS: CMCS:Brexpiprazole (NF) 0.5 MG TAB PO SCH (08:22)
[2017-11-14] MEDS ORDERED: Mouth Piece, Nicotine* 1 EACH CARTRIDGE ONE (13:48)
--- NOTE | 2017-11-14 16:28 | PN ---
Subjective - Subjective Date of Service: 11/14/17 Subjective: weekend notes by nursing and psychiatrist about patient's functioning over the weekend was reviewed. patient continues to be in denial about his significant alcohol use disorder. tends to minimize and externalize blame for his alcohol relapse to other circumstances. 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 Denies any side effects from his medication tolerated Percocet taper well no current withdrawal symtoms. Objective - Appearance Appearance: Well Developed/Nourished, Thin Framed Dysmorphic Features: No Hygiene: Normal Grooming: Well Kept - Behavior Psychomotor Activities: Normal Exhibits Abnormal Movement: No - Attitude and Relatedness Attitude and Relatedness: Cooperative Eye Contact: Fair - Speech Quality: Unpressured Latencies: Normal Quantity: Appropriate - Mood Patient's Decription of Mood: "Anxious" - Affect Observed Affect: Fair Affect Consistent with: Euthymia - Thought Process Patient's Thought Process: Coherent Thought Content: No Passive Wish, No Suicidal Planning, No Homicidal Ideation, No Paranoid Ideation - Sensorium Type of Hallucinations: Visual: No, Auditory: No, Command: No - Level of Consciousness Level of Consciousness: Alert Orientation: Yes Intact, Yes Orientated to Time, Yes Orientated to Place, Yes Orientated to Person - Impulse Control Impulse Control: Intact - Insight and Judgement Insight and Judgement: Fair - Group Participation Particating in Group Activities: Yes - Medication Management Medication Management Adherence: Yes Assessment - Assessment Merits Inpatient Hospitalization: Pending Safe DC Plan Inpatient DSM-IV Dx: Alcohol Dependence moderate. Alcohol Withdrawal syndrome. Major Depressive Disorder Recurrent moderate without psychotic features. Panic Disorder. Social Anxiety Disorder Clinical Impression: 37 yo with long standing alcohol dependence, Major depressive disorder recurrent , severe anxiety disorder, admitted with SI, depression, and alcohol use relapase in the context of severe stressors including of mother, marital separation, and eviction/homelessness. Patient is completing 2 week hospital stay. his mental status is improved, he is not suicidal, and he is stable for transfer to 30 day inpatient alcohol rehabilitation program. Plan - Plan Treatment Plan: individual/group/milieu therapy medication regimen/plan as follows: Rexulti 1 mg QAM Klonopin 1 mg BID scheduled for severe anxiety disorders. We will decrease this to 0.5 mg TID on discharge tomorrow It is recommended that he have a slow taper over 4 month period of time. Effexor XR 300 mg daily Inderal 30 mg TID Seroquel 100 mg QHS nicotine replacement transfer to [facility] alcohol rehab program Medications: Current Medications Acetaminophen (Tylenol Tab*) 650 mg PO Q4H PRN PRN Reason: PAIN or TEMP > 101 F Al Hydrox/Mg Hydrox/Simethicone (Maalox Plus*) 30 ml PO Q4H PRN PRN Reason: INDIGESTION Last Admin: 11/11/17 22:23 Dose: 30 ml Brexpiprazole (Rexulti 0.5 Mg Tab (Nf)) 1 mg PO DAILY@0900 [facility] Last Admin: 11/14/17 08:22 Dose: 1 mg Clonazepam (Klonopin Tab(*)) 1 mg PO BID@0800,1700 [facility] Last Admin: 11/14/17 08:17 Dose: 1 mg Multivitamins (Theragran Tab*) 1 tab PO DAILY [facility] Last Admin: 11/14/17 08:21 Dose: 1 tab Naproxen (Naprosyn Tab*) 500 mg PO BID WITH MEALS PRN PRN Reason: PAIN Last Admin: 11/11/17 11:53 Dose: 500 mg Nicotine (Nicotine Inhaler*) 10 mg INH Q2H PRN PRN Reason: CRAVING Last Admin: 11/14/17 16:03 Dose: 10 mg Nicotine (Nicotine Patch 21 Mg/24 Hr*) 1 patch TRANSDERM DAILY [facility] Last Admin: 11/14/17 08:22 Dose: 1 patch Nicotine Polacrilex (Nicotine Gum*) 2 mg PO Q2H PRN PRN Reason: CRAVING Last Admin: 11/14/17 16:03 Dose: 2 mg Pharmacy Profile Note (Nicotine Patch Removal Note*) 1 note PATCH OFF 2100 [facility] Last Admin: 11/13/17 20:46 Dose: 1 note Propranolol HCl (Inderal Tab*) 30 mg PO BID [facility] Last Admin: 11/14/17 08:17 Dose: 30 mg Quetiapine Fumarate (Seroquel Tab*) 100 mg PO BEDTIME [facility] Last Admin: 11/13/17 22:22 Dose: 100 mg Venlafaxine HCl (Effexor Xr Cap*) 300 mg PO DAILY [facility] Last Admin: 11/14/17 08:20 Dose: 300 mg
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
[2017-11-14] MEDS: QUEtiapine TAB* 100 MG PO SCH (22:15)
[2017-11-14] MEDS: Nicotine Patch Removal NOTE PATCH OFF SCH (22:16)
[2017-11-15] MEDS: Venlafaxine EXT RELEASE CAP* 75 MG PO SCH (07:41)
[2017-11-15] MEDS: Propranolol TAB* 10 MG PO SCH (07:41)
[2017-11-15] MEDS: Nicotine Inhaler* 10 MG AMP INH PRN (07:42)
[2017-11-15] MEDS: clonazePAM TAB(*) 1 MG PO SCH (07:42)
[2017-11-15] MEDS: Nicotine GUM* 2 MG PO PRN (07:42)
[2017-11-15] MEDS: Vitamin THERAPEUTIC TAB PO SCH (07:43)
[2017-11-15] MEDS: Nicotine PATCH 21 MG/24 HR* PATCH TRANSDERM SCH (07:43)
[2017-11-15 07:47] VITALS: BP 143/77
[2017-11-15] MEDS: CMCS:Brexpiprazole (NF) 0.5 MG TAB PO SCH (07:56)
[2017-11-15 08:56] LABS: ABS Basophils 0 10^3/ul (0-0.2); ABS Eosinophils 0.4 10^3/ul (0-0.6); ABS Lymphocytes 1.6 10^3/ul (1.0-4.8); ABS Monocytes 0.7 10^3/ul (0-0.8); ABS Neutrophils 3.6 10^3/ul (1.5-7.7); ABS Nucleated RBC 0 10^3/ul; Eosinophil % 5.8 % (0-6); Hematocrit 39 % (42-52); Hemoglobin 13.5 g/dl (14.0-18.0); Lymphocyte % 25.9 % (25-47); Mean Corpuscular HGB Conc 35 g/dl (31-36); Mean Corpuscular Hemoglobin 32 pg (27-31); Mean Corpuscular Volume 91 fL (80-94); Mean Platelet Volume 7 um3 (7.4-10.4); Nucleated Red Blood Cells % 0; Platelet Count 296 10^3/ul (150-450); Red Blood Count 4.23 10^6/ul (4.0-5.4); Red Cell Distribution Width 13 % (10.5-15); White Blood Count 6.3 10^3/ul (3.5-10.8)
== END 2017-11-15 09:00 | DRG 775 ==
LOC: ED 16:34 → BSU 10-31 06:22
PROVIDERS: ADMIT Psychiatry & Neurology Psychiatry; ATTEND Psychiatry & Neurology Psychiatry
PROC: GZHZZZZ Group Psychotherapy (ICD-10-PCS; principal; 2017-11-02)
DX: F10.239 Alcohol dependence with withdrawal, unspecified (principal); F10.229 Alcohol dependence with intoxication, unspecified; R45.851 Suicidal ideations; F33.1 Major depressive disorder, recurrent, moderate; F90.9 Attention-deficit hyperactivity disorder, unspecified type; F17.210 Nicotine dependence, cigarettes, uncomplicated; R40.2412 Glasgow coma scale score 13-15, at arrival to emergency department; F41.0 Panic disorder [episodic paroxysmal anxiety]; Z62.810 Personal history of physical and sexual abuse in childhood; Y90.8 Blood alcohol level of 240 mg/100 ml or more; F39 Unspecified mood [affective] disorder; F40.10 Social phobia, unspecified; G47.00 Insomnia, unspecified; G25.0 Essential tremor; F34.1 Dysthymic disorder; F43.10 Post-traumatic stress disorder, unspecified; R45.1 Restlessness and agitation; Z91.018 Allergy to other foods; Z81.1 Family history of alcohol abuse and dependence; Z56.0 Unemployment, unspecified; Z81.8 Family history of other mental and behavioral disorders; Z59.0 Homelessness
CPT/HCPCS: 36415; 80053; 80307; 80320; 80329; 81003; 81015; 84436; 84439; 84442; 84443; 85025; 86376; 90853; 93005; 99222; 99231; 99232; 99238; A9270-GY; G0480

== ENCOUNTER 2017-12-23 15:47 | Emergency (ER) | payer MEDICAID ==
[2017-12-23 19:08] VITALS: BP 147/88
--- NOTE | 2017-12-23 20:46 | UC ---
Throat Pain/Nasal Steven HPI - HPI Summary HPI Summary: thick green and yellow nasal drainage getting worse over the course of the week - History of Current Complaint Chief Complaint: UCRespiratory Stated Complaint: SINUS PAIN Time Seen by Provider: 12/23/17 19:30 Hx Obtained From: Patient Onset/Duration: Gradual Onset, Lasting Days - 6, Still Present Severity: Moderate Pain Intensity: 8 Pain Scale Used: 0-10 Numeric Cough: None Associated Signs & Symptoms: Positive: Sinus Discomfort, Nasal Discharge - Allergies/Home Medications Allergies/Adverse Reactions: Allergies Allergy/AdvReac Type Severity Reaction Status Date / Time peanut Allergy Anaphylatic Verified 12/23/17 19:08 Shock Home Medications: Home Medications Ibuprofen 600 mg PO Q6H PRN 12/23/17 [History Confirmed 12/23/17] PMH/Surg Hx/FS Hx/Imm Hx Previously Healthy: No Psychological History: Depression Other History Of: Negative For: Anticoagulant Therapy - Surgical History Surgical History: Yes Surgery Procedure, Year, and Place: [place] Teeth Extraction. Moles Removed - Family History Known Family History: Positive: Other - EtOH abuse and depression per EMR. Negative: Hypertension, Diabetes - Social History Occupation: Employed Full-time Lives: With Family Alcohol Use: None Alcohol Amount: approximately 15 beers/day 08/14/17 Substance Use Type: None Substance Use Comment - Amount & Last Used: was drinking immediately before admission. He says he drinks 15 beers/day Smoking Status (MU): Light Every Day Tobacco Smoker Type: Cigarettes Amount Used/How Often: 1/2 PPD Have You Smoked in the Last Year: Yes Household Exposure Type: Cigarettes - Immunization History Most Recent Influenza Vaccination: not this season Most Recent Tetanus Shot: Unsure Most Recent Pneumonia Vaccination: Never Review of Systems Constitutional: Negative Skin: Negative Eyes: Negative ENT: Ear Ache, Sinus Congestion, Sinus Pain/Tenderness Respiratory: Negative Cardiovascular: Negative Gastrointestinal: Negative Genitourinary: Negative Motor: Negative Neurovascular: Negative Musculoskeletal: Negative Neurological: Negative Psychological: Negative Is Patient Immunocompromised?: No All Other Systems Reviewed And Are Negative: Yes Physical Exam Triage Information Reviewed: Yes Appearance: Well-Appearing, Well-Nourished, Pain Distress Vital Signs: Initial Vital Signs Temp 98.9 F 12/23/17 19:03 Pulse 92 12/23/17 19:03 Resp 14 12/23/17 19:03 BP 147/88 12/23/17 19:03 Pulse Ox 100 12/23/17 19:03 Vital Signs Reviewed: Yes Eye Exam: Normal Eyes: Positive: Conjunctiva Clear ENT Exam: Normal ENT: Positive: Normal ENT inspection, Hearing grossly normal, Pharynx normal, Nasal congestion, Nasal drainage, Sinus tenderness, Uvula midline. Negative: TMs normal, Tonsillar swelling, Tonsillar exudate, Trismus, Muffled voice, Hoarse voice, Dental tenderness Dental Exam: Normal Neck exam: Normal Neck: Positive: Supple, Nontender, No Lymphadenopathy Respiratory Exam: Normal Respiratory: Positive: Chest non-tender, Lungs clear, Normal breath sounds, No respiratory distress, No accessory muscle use Cardiovascular Exam: Normal Cardiovascular: Positive: RRR, No Murmur, Pulses Normal, Brisk Capillary Refill Musculoskeletal Exam: Normal Musculoskeletal: Positive: Strength Intact, ROM Intact, No Edema Neurological Exam: Normal Neurological: Positive: Alert, Muscle Tone Normal Psychological Exam: Normal Skin Exam: Normal Throat Pain/Nasal Course/Dx - Course Assessment/Plan: Augmentin, flonase, ibuprofen for pain follow BP with pcp - Differential Dx/Diagnosis Provider Diagnoses: Acute Rhinosinusitis, Elevated blood pressure without dx of hypertension Discharge - Discharge Plan Condition: Stable Disposition: HOME Prescriptions: Amoxicillin/Clavulanate TAB* [Augmentin TAB 875*] 875 mg PO BID #19 tab Fluticasone NASAL SPRAY 50MCG* [Flonase NASAL SPRAY 50MCG*] 2 spray BOTH NARES DAILY #1 btl Patient Education Materials: Sinusitis (ED), Hypertension (ED), How to Use Nasal [place] (ED) Referrals: Bala Grady III GENERAL MILLING SUPERINTENDENT [Primary Care Provider] - 2 Weeks
[2017-12-23] MEDS ORDERED: Amoxicillin/Clavulanate TAB* 875 MG PO ONE (20:49)
== END 2017-12-23 21:00 | disposition home or self-care (01) ==
LOC: UCEAST 15:47
DX: J01.90 Acute sinusitis, unspecified (principal); R03.0 Elevated blood-pressure reading, without diagnosis of hypertension; F32.9 Major depressive disorder, single episode, unspecified; F17.210 Nicotine dependence, cigarettes, uncomplicated
CPT/HCPCS: 99212; A9270-GY; G0463

== ENCOUNTER 2019-03-20 16:37 | Emergency (ER) | payer OTHER ==
[2019-03-20 17:19] VITALS: BP 117/66
--- NOTE | 2019-03-20 17:48 | UC ---
Lower Extremity/Ankle HPI - HPI Summary HPI Summary: 38 y/o male presents to the urgent care c/o right heel pain s/p stepping on a metal stake while walking his dog last night. Pt reports this he woke up and it was painful to walk and it is swollen. Pt reports he was wearing sneakers. He states Pain is sharp about 8/10 when he touches or stands on it. He took and Ibuprofen 600mg PO today around 1400PM. He is not UTD w/ his Tetanus vaccine. Pt denies fever, SOB, calf pain, chest pain, abdominal pain, N/V/D. - History of Current Complaint Chief Complaint: UCLowerExtremity Stated Complaint: RT FOOT INJURY Time Seen by Provider: 03/20/19 17:44 Hx Obtained From: Patient Onset/Duration: Sudden Onset, Lasting Days - 1 day, Still Present, Worse Since - today Severity Initially: Moderate Severity Currently: Moderate Pain Intensity: 8 Pain Scale Used: 0-10 Numeric Aggravating Factor(s): Standing, Ambulation Alleviating Factor(s): Rest, Elevation, OTC Meds Able to Bear Weight: Yes - Risk Factors Gout Risk Factors: Negative DVT Risk Factors: Negative Septic Arthritis Risk Factor: Negative - Allergies/Home Medications Allergies/Adverse Reactions: Allergies Allergy/AdvReac Type Severity Reaction Status Date / Time peanut Allergy Anaphylatic Verified 03/20/19 17:19 Shock PMH/Surg Hx/FS Hx/Imm Hx Previously Healthy: Yes Psychological History: Anxiety, Depression Other History Of: Negative For: Anticoagulant Therapy - Surgical History Surgical History: Yes Surgery Procedure, Year, and Place: [place] Teeth Extraction. Moles Removed - Family History Known Family History: Positive: Hypertension, Other - EtOH abuse and depression per EMR. Negative: Diabetes - Social History Occupation: Employed Full-time Lives: With Family Alcohol Use: None Alcohol Amount: approximately 15 beers/day 08/14/17 Substance Use Type: None Substance Use Comment - Amount & Last Used: was drinking immediately before admission. He says he drinks 15 beers/day Smoking Status (MU): Light Every Day Tobacco Smoker Type: Cigarettes Amount Used/How Often: 1/2 PPD Have You Smoked in the Last Year: Yes Household Exposure Type: Cigarettes - Immunization History Most Recent Influenza Vaccination: not this season Most Recent Tetanus Shot: over 10 years Most Recent Pneumonia Vaccination: Never Hx Tetanus, Diphtheria Vaccination: No Review of Systems All Other Systems Reviewed And Are Negative: Yes Constitutional: Positive: Negative Skin: Positive: Other - puncture wound swollen and red in the right heel w/ a metal stake Eyes: Positive: Negative ENT: Positive: Negative Respiratory: Positive: Negative Cardiovascular: Positive: Negative Gastrointestinal: Positive: Negative Genitourinary: Positive: Negative Motor: Positive: Negative Neurovascular: Positive: Negative Musculoskeletal: Positive: Other: - RT heel pain s/p puncture wound w/ a metal Neurological: Positive: Negative Psychological: Positive: Negative Is Patient Immunocompromised?: No Physical Exam - Summary Physical Exam Summary: Vital Signs Reviewed: Yes General: well developed, well nourished male sitting in the examining table w/o any apparent distress Eye Exam: Normal Eyes: Positive: Conjunctiva Clear - PERRLA, EOMI, fundi grossly normal ENT: Positive: Normal ENT inspection, Hearing grossly normal, Pharynx normal, TMs normal Neck: Positive: Supple, Nontender, No Lymphadenopathy Respiratory: Positive: Chest non-tender, Lungs clear, Normal breath sounds, No respiratory distress Cardiovascular: Positive: RRR, No Murmur, Pulses Normal, Brisk Capillary Refill Abdomen Description: Positive: Nontender, No Organomegaly, Soft. Negative: CVA Tenderness (R), CVA Tenderness (L) Bowel Sounds: Positive: Present Musculoskeletal: Positive: Strength Intact, ROM Intact, No Edema Neurological: Positive: Alert, Muscle Tone Normal Psychological Exam: Normal Skin: Positive:RT heel w/ a discrete puncture wound w/ surrounding erythema and soft tissue swelling, about 0.3cm in size, tender to palpation, no drainage observed, FROM of RT ankel and foot, sensation intact, capillary refill brisk, and pulses WNL. Triage Information Reviewed: Yes Vital Signs: Initial Vital Signs Temp 97.6 F 03/20/19 17:13 Pulse 67 03/20/19 17:13 Resp 14 03/20/19 17:13 BP 117/66 03/20/19 17:13 Pulse Ox 100 03/20/19 17:13 Lower Extremity Course/Dx - Course Course Of Treatment: 38 y/o male presents to the urgent care c/o right heel pain s/p stepping on a metal stake while walking his dog last night. Pt reports this he woke up and it was painful to walk and it is swollen. Pt reports he was wearing sneakers. He states Pain is sharp about 8/10 when he touches or stands on it. He took and Ibuprofen 600mg PO today around 1400PM. He is not UTD w/ his Tetanus vaccine. Pt denies fever, SOB, calf pain, chest pain, abdominal pain, N/V/D. Hx obtained. Pt w/ a puncture wound at the sole of the RT heel w/ erythema and soft tissue swelling and tender to palpation, FROM of RT ankle and foot on examination. RT foot X-ray ordered: Impression: normal radiographic image, no FB observed as per radiologist. Copious irrigation was done with saline and the wound explored. No FB body observed.Wound cleaned w/ Iodine swabs. Bacitracin applied over wound and ound dressed w/ sterile gauze by me. Post-op shoe given to Pt to avoid flexion and Crutches given for comfort. Tdap ordered and applied by nurse. Pt Ciprofloxacin PO to cover for pseudomonas as directed below. Advised to take Ibuprofen or tylenol PO for pain. Advised if not improvement of symptoms to f/u w/ his PCP for further management and treatment. D/C instructions explained. Pt understood and agreed and left the clinic ambulating A&Ox3. - Differential Dx/Diagnosis Differential Diagnosis/HQI/PQRI: Cellulitis, Foreign Body, Infection, Puncture Wound, Sprain, Strain, Tendonitis, Tenosynovitis Provider Diagnosis: Puncture wound of right heel Discharge - Sign-Out/Discharge Documenting (check all that apply): Patient Departure - D/C home All imaging exams completed and their final reports reviewed: Yes - Discharge Plan Condition: Stable Disposition: HOME Prescriptions: Bacitracin OINTMENT* 1 applic TOPICAL BID #1 tube Ciprofloxacin TAB* [Cipro 500 MG TAB*] 500 mg PO BID #14 tab Patient Education Materials: Puncture Wound (ED) Forms: *Work Release Referrals: Bala Grady III, NP [Primary Care Provider] - 3 Days Additional Instructions: 1- Please take Ciprofloxacin PO as directed to prevent infection. Please apply topical Bacitracin antibiotic over the wound. 2- Keep wound clean and dry, avoid too much flexion or standing for long periods of time, elevate your foot and use the crutches to avoid weight bearing until symptoms improve. 3-Take Ibuprofen or Tylenol PO q6-8hrs prn for pain or swelling. 4- If you develop fever or redness around your foot despite the antibiotic please go to the ER immediately or return to the Urgent care. - Billing Disposition and Condition Condition: STABLE Disposition: Home - Attestation Statements Provider Attestation: I was available for consult. This patient was seen by the KENJI. The patient was not presented to, seen by, or examined by me. -Lola
[2019-03-20] MEDS ORDERED: Tetan/Diph/Pertus SYR(Tdap)* 0.5 ML SYR(BOOSTRIX) use SYR IM ONE (18:03)
== END 2019-03-20 18:44 | disposition home or self-care (01) ==
LOC: UCEAST 16:37
DX: S91.331A Puncture wound without foreign body, right foot, initial encounter (principal); W26.8XXA Contact with other sharp object(s), not elsewhere classified, initial encounter; Y93.K1 Activity, walking an animal; Y92.9 Unspecified place or not applicable; Z23 Encounter for immunization; F41.9 Anxiety disorder, unspecified; F32.9 Major depressive disorder, single episode, unspecified; Z91.010 Allergy to peanuts; F17.210 Nicotine dependence, cigarettes, uncomplicated
CPT/HCPCS: 90471; 90715; 99213; G0463

== ENCOUNTER 2019-08-31 11:25 | Emergency (ER) | payer MEDICAID, OTHER ==
[2019-08-31 11:33] VITALS: BP 135/77
--- NOTE | 2019-08-31 11:47 | UC ---
Lower Extremity/Ankle HPI - HPI Summary HPI Summary: early this am (5am) patient struck R great toe against a step in apartment, no has cut, pain, swelling and black and blue, very painful - History of Current Complaint Chief Complaint: UCLowerExtremity Stated Complaint: TOE INJURY Time Seen by Provider: 08/31/19 11:27 Hx Obtained From: Patient Onset/Duration: Sudden Onset Severity Initially: Severe Severity Currently: Severe Pain Intensity: 10 Aggravating Factor(s): Standing, Ambulation Alleviating Factor(s): Rest, Elevation Able to Bear Weight: No - using crutches - Allergies/Home Medications Allergies/Adverse Reactions: Allergies Allergy/AdvReac Type Severity Reaction Status Date / Time peanut Allergy Anaphylatic Verified 08/31/19 11:34 Shock Home Medications: Home Medications Buprenorp/Nalox 8-2 MG FILM [Suboxone 8 mg-2 mg Sl Film] 1 powder [id number] DAILY 08/31/19 [History Confirmed 08/31/19] Gabapentin 1 tab PO DAILY 08/31/19 [History Confirmed 08/31/19] PMH/Surg Hx/FS Hx/Imm Hx Previously Healthy: Yes Psychological History: Anxiety, Depression, Other - drug abuse Other History Of: Negative For: HIV, Hepatitis C, Anticoagulant Therapy - Surgical History Surgical History: Yes Surgery Procedure, Year, and Place: [place] Teeth Extraction. Moles Removed - Family History Known Family History: Positive: Hypertension, Other - EtOH abuse and depression per EMR. Negative: Diabetes - Social History Occupation: Employed Full-time Lives: With Family Alcohol Use: None Alcohol Amount: approximately 15 beers/day 08/14/17 Substance Use Type: None Substance Use Comment - Amount & Last Used: was drinking immediately before admission. He says he drinks 15 beers/day Smoking Status (MU): Light Every Day Tobacco Smoker Type: Cigarettes Amount Used/How Often: 1/2 PPD Have You Smoked in the Last Year: Yes Household Exposure Type: Cigarettes Cessation Counseling: Patient Advised to Stop - Immunization History Most Recent Influenza Vaccination: not this season Most Recent Tetanus Shot: 2019 Most Recent Pneumonia Vaccination: Never Hx Tetanus, Diphtheria Vaccination: Yes Vaccination Up to Date: Yes Review of Systems All Other Systems Reviewed And Are Negative: Yes Constitutional: Positive: Negative Skin: Positive: Other - cut on R great toe Respiratory: Positive: Negative Cardiovascular: Positive: Negative Musculoskeletal: Positive: Decreased ROM - R great toe Neurological: Positive: Negative Psychological: Positive: Negative Is Patient Immunocompromised?: No Physical Exam Triage Information Reviewed: Yes Appearance: Well-Appearing, No Pain Distress, Well-Nourished Vital Signs: Initial Vital Signs Temp 97.8 F 08/31/19 11:30 Pulse 100 08/31/19 11:30 Resp 20 08/31/19 11:30 BP 135/77 08/31/19 11:30 Pulse Ox 100 08/31/19 11:30 Vital Signs Reviewed: Yes Respiratory Exam: Normal Respiratory: Positive: Lungs clear Cardiovascular Exam: Normal Cardiovascular: Positive: RRR Musculoskeletal: Positive: Other: - R great distal toe is ecchymotic and swollen with small abrasion tip, nail intact Neurological Exam: Normal Neurological: Positive: Alert Psychological Exam: Normal Diagnostics - Radiology No standard instances Radiology Interpretation Completed By: Radiologist - IMPRESSION: NONDISPLACED FRACTURE BASE OF THE Right first DISTAL PHALANX. Lower Extremity Course/Dx - Differential Dx/Diagnosis Differential Diagnosis/HQI/PQRI: Contusion, Fracture (Closed) Provider Diagnosis: Toe fracture, right Discharge ED - Sign-Out/Discharge Documenting (check all that apply): Patient Departure All imaging exams completed and their final reports reviewed: Yes - nondisplcaed fracture distal R 1st phalanyx toe - Discharge Plan Condition: Good Disposition: HOME Prescriptions: Ibuprofen 800 mg PO TID PRN #30 tablet PRN Reason: Pain - Moderate Patient Education Materials: Toe Fracture (ED) Forms: *Work Release Referrals: Bala Grady III, NP [Primary Care Provider] - aJmel Varela MD [Medical Doctor] - 2 Days (call for appointment for evaluation ) Additional Instructions: ice and elevate right foot use post-op shoe until seen by orthopedics ibuprofen as prescribed for pain - Billing Disposition and Condition Condition: GOOD Disposition: Home - Attestation Statements Provider Attestation: Per institutional requirements, I have reviewed the chart, however, I was not consulted specifically or made aware of this patient by the midlevel provider. I did not personally evaluate, interact with , or disposition this patient.
== END 2019-08-31 12:30 | disposition home or self-care (01) ==
LOC: UCEAST 11:25
DX: S92.911A Unspecified fracture of right toe(s), initial encounter for closed fracture (principal); F17.210 Nicotine dependence, cigarettes, uncomplicated; Z91.010 Allergy to peanuts; W22.09XA Striking against other stationary object, initial encounter; Y92.039 Unspecified place in apartment as the place of occurrence of the external cause
CPT/HCPCS: 99213; G0463

== ENCOUNTER 2023-10-03 06:27 | Inpatient (IN) ==
[2023-10-03 07:04] LABS: Hematocrit 18.2 % (38-53); Mean Corpuscular Hemoglobin 31.8 pg (27-33); Mean Corpuscular Hgb Conc 29.2 g/dL (31-36); Mean Corpuscular Volume 108.7 fL (80-97); Mean Platelet Volume 8.9 fL (7.5-11.2); Platelet Count 257 10^3/uL (150-450); Red Blood Count 1.68 10^6/uL (4.06-5.63); Red Cell Distribution Width 14.9 % (12-17)
[2023-10-03 07:20] LABS: ALT 475 U/L (7-52); AST 696 U/L (13-39); Albumin 2.5 g/dL (3.2-5.2); Albumin/Globulin Ratio 1.7 (1-3); Alkaline Phosphatase 83 U/L (35-149); Anion Gap 36 mmol/L (2-16); Blood Urea Nitrogen 41 mg/dL (6-24); CO2 Carbon Dioxide 10 mmol/L (22-32); Calcium 9.4 mg/dL (8.6-10.3); Chloride 110 mmol/L (101-111); Creatinine, Serum 1.26 mg/dL (0.67-1.17); Globulin 1.5 g/dL (2-4); Glucose 176 mg/dL (70-100); Magnesium 3.6 mg/dL (1.9-2.7); Potassium 6.7 mmol/L (3.5-5.0); Sodium 156 mmol/L (135-145); Total Bilirubin 0.1 mg/dL (0.2-1.0)
[2023-10-03 07:22] LABS: High Sens Troponin Baseline 111 pg/mL (<20)
[2023-10-03 07:25] LABS: Alcohol, S < 13 mg/dL (<13)
[2023-10-03] MEDS ORDERED: Octreotide Acetate 50 MCG in NS 0.9% 50 ML 50 ML IV ONE (07:28)
[2023-10-03] MEDS ORDERED: Calcium CHLORIDE 10% SYRINGE 1 GM/10 ML ONE (07:31)
[2023-10-03] MEDS ORDERED: Dextrose 50% VIAL 50 ml IV PRN ×2 (07:32→11:03)
[2023-10-03] MEDS ORDERED: Furosemide 40 mg/4 ml IV VIAL IV SLOW PU ONE ×2 (07:32→13:02)
[2023-10-03] MEDS ORDERED: Chlorothiazide IV 500 mg VIAL IV ONE (07:33)
[2023-10-03] MEDS ORDERED: Calcium CHLORIDE 10% SYRINGE 1 GM/10 ML IV ONE ×2 (07:34→09:58)
[2023-10-03] MEDS ORDERED: Albuterol (2.5 MG) 0.5 % CONC 0.5 ML NEB.SOLN INH ONE (07:38)
[2023-10-03 07:43] LABS: Resp Rate 18
[2023-10-03] MEDS ORDERED: Albuterol 2.5mg/3 ml (0.083%) NEB.SOLN INH ONE ×2 (07:43→10:01)
[2023-10-03 07:45] LABS: PCO2 Arterial 64 mmHg (35-45); PO2 Arterial 187 mmHg (80-100)
[2023-10-03] MEDS ORDERED: Iohexol 350 (CONTRAST) 500 ML MDV IV ONE (07:59)
[2023-10-03] MEDS ORDERED: Octreotide Acetate 500 MCG in NS 0.9% 100 ml BAG 100 ML IV SCH (08:00)
[2023-10-03] MEDS ORDERED: Pantoprazole 80 mg in NS BAG 80 MG/250 ML BAG IV SCH (08:00)
[2023-10-03] MEDS ORDERED: D5W 1000 ml BAG 850 ML with Sodium Bicarb 8.4% Vial 50 ML 150 MEQ IV SCH (08:00)
[2023-10-03] MEDS ORDERED: Propofol 10 mg/ml 100 ML BTL 1,000 MG/100 ML BTL ONE ×2 (08:01→12:34)
[2023-10-03 08:09] LABS: Hemoglobin 5.3 g/dL (13.2-16.3)
[2023-10-03] MEDS ORDERED: Dextrose 50% Syringe 50 ml 25 GM/50 ML SYRINGE PRN ×2 (08:10→11:06)
[2023-10-03] MEDS: Sodium Bicarb 8.4% Vial 50 ML 150 MEQ in D5W 1000 ml BAG 850 ML IV SCH ×2 (08:30→13:58)
[2023-10-03] MEDS ORDERED: Norepinephrine 4 MG/250mL D5W 0 MCG/0 ML BAG IV ONE (08:43)
[2023-10-03 08:48] LABS: INR 1.34 (0.83-1.13)
[2023-10-03 09:11] LABS: Urine Benzodiazepine Screen None Detected (None Detect); Urine Cannabinoids Screen None Detected (None Detect); Urine Opiates Screen None Detected (None Detect)
[2023-10-03 09:16] LABS: Activated Partial Thrombo Time 120.3 seconds (26.0-38.0)
[2023-10-03 09:26] LABS: Urine Appearance Clear; Urine Bilirubin Negative (Negative); Urine Blood Negative (Negative); Urine Color Yellow; Urine Glucose Negative (Negative); Urine Ketones Trace (Negative); Urine Nitrite Negative (Negative); Urine Protein Negative (Negative); Urine Specific Gravity 1.023 (1.002-1.030); Urine Urobilinogen Negative (Negative)
[2023-10-03 09:58] LABS: Albumin < 1.7 g/dL (3.2-5.2); Albumin/Globulin Ratio 1.3 (1-3); Alkaline Phosphatase 82 U/L (35-149); Anion Gap 22 mmol/L (2-16); Blood Urea Nitrogen 38 mg/dL (6-24); CO2 Carbon Dioxide 15 mmol/L (22-32); Chloride 106 mmol/L (101-111); Creatinine, Serum 1.39 mg/dL (0.67-1.17); Globulin 1.3 g/dL (2-4); Glucose 342 mg/dL (70-100); Potassium 7.2 mmol/L (3.5-5.0); Sodium 143 mmol/L (135-145); Total Bilirubin 0.2 mg/dL (0.2-1.0); Total Protein < 3.0 g/dL (6.4-8.9); eGFR CKD-EPI 64.9 (>60)
[2023-10-03] MEDS ORDERED: Furosemide 20 mg/2 ml IV VIAL IV SLOW PU ONE (09:59)
[2023-10-03 10:00] LABS: ABS Basophils 0.1 10^3/uL (0.0-0.1); ABS Eosinophils 0.2 10^3/uL (0.0-0.5); ABS Lymphocytes 6.4 10^3/uL (1.0-4.8); ABS Monocytes 0.4 10^3/uL (0.0-1.1); ABS Nucleated RBC 0.19 10^3/ul; Lymphocyte % 63.9 %; Nucleated Red Blood Cells % 1.9 %/100WBC (0.0-0.8)
[2023-10-03 10:11] LABS: ALT 1032 U/L (7-52); AST 1458 U/L (13-39)
[2023-10-03] MEDS ORDERED: VASOPRESSIN IVPREMIX BTL 40 UNIT/100 ML BTL IV SCH (10:15)
[2023-10-03 10:18] LABS: PCO2 Arterial 71 mmHg (35-45); PO2 Arterial 111 mmHg (80-100)
[2023-10-03] MEDS ORDERED: NOREPINEPHRINE IV ONE (10:26)
[2023-10-03] MEDS: Albuterol 2.5mg/3 ml (0.083%) NEB.SOLN INH SCH ×6 (10:26→10:49)
[2023-10-03] MEDS ORDERED: DEXTROSE IV ONE (10:26)
[2023-10-03] MEDS ORDERED: Sodium Bicarbonate 8.4% SYR 50 ml SYRINGE ONE (11:00)
[2023-10-03] MEDS ORDERED: Dextrose 50% Syringe 50 ml 25 GM/50 ML SYRINGE ONE ×2 (11:00→11:28)
[2023-10-03] MEDS ORDERED: Sodium Bicarbonate 8.4% SYR 50 ml SYRINGE IV ONE (11:03)
[2023-10-03 11:26] LABS: INR 1.39 (0.83-1.13)
[2023-10-03 11:32] LABS: Activated Partial Thrombo Time 101.1 seconds (26.0-38.0)
[2023-10-03 11:58] LABS: Resp Rate 20
[2023-10-03 12:02] LABS: PCO2 Arterial 63 mmHg (35-45); PO2 Arterial 77 mmHg (80-100)
[2023-10-03 12:16] LABS: Hematocrit 24.1 % (38-53); Hemoglobin 7.9 g/dL (13.2-16.3)
[2023-10-03] MEDS ORDERED: Norepinephrine IV 1 MG/ML 4 ML VIAL ONE (12:18)
[2023-10-03] MEDS ORDERED: Norepinephrine 4 MG/250mL D5W 4,000 MCG/250 ML BAG IV ONE (12:18)
[2023-10-03] MEDS ORDERED: Rocuronium 50 mg VIAL 10 mg/ml 5 ml VIAL (50 mg) ONE (12:25)
[2023-10-03 12:33] LABS: High Sensitivity Troponin 1 Hr 1220 pg/mL (<20)
[2023-10-03] MEDS ORDERED: Norepinephrine 4 MG/250mL D5W 4,000 MCG/250 ML BAG IV SCH (13:00)
[2023-10-03 13:48] LABS: Mean Platelet Volume 7.7 fL (7.5-11.2); Platelet Count 160 10^3/uL (150-450)
[2023-10-03] MEDS ORDERED: Lorazepam PYXIS KEY PRN (13:57)
[2023-10-03] MEDS ORDERED: Morphine 10 MG/ML VIAL (1 ml) IV SCH (14:00)
[2023-10-03] MEDS ORDERED: LORazepam 2 mg VIAL 1 ml IV PUSH SCH (14:00)
[2023-10-03] MEDS ORDERED: LORazepam 2 mg VIAL 1 ml ONE (14:07)
[2023-10-03 14:25] VITALS: BP 94/64
[2023-10-03 18:15] LABS: Hepatitis B Surface Antigen Nonreactive (Nonreactive)
[2023-10-03 18:24] LABS: HIV 4th Generation Nonreactive (Nonreactive)
[2023-10-03 18:32] LABS: Hepatitis B Surface Ab Immune (Immune); Hepatitis C Antibody Negative (Negative)
== END 2023-10-03 14:35 | disposition expired | DRG 241 ==
LOC: ED 06:27 → EDHOLD 07:29 → ICU 08:42
PROVIDERS: ADMIT Internal Medicine Critical Care Medicine; ATTEND Internal Medicine Critical Care Medicine